=== PATIENT | female | born 1940 | race Caucasian/White ===

== ENCOUNTER → 2019-01-25 08:49 | Outpatient (CLI) | payer MEDICARE, OTHER, SELFPAY ==
[2019-01-25 12:35] LABS: BUN 10 mg/dL (7-18); Creatinine, Serum 0.76 mg/dL (0.55-1.02); Glucose 153 mg/dL (74-106)
[2019-01-25 12:36] LABS: Anion Gap 11 (5-15); BUN/Creat Ratio 13.2 RATIO (10-20); Calcium,Total 8.8 mg/dL (8.5-10.1); Chloride 100 mmol/L (98-107); EST Glomerular Filtration Rate 78 mL/min (>60); Est Glom Filt Rate - Afr Amer 95 mL/min (>60); Potassium 3.7 mmol/L (3.5-5.1); Sodium Level 138 mmol/L (136-145)
[2019-01-25 12:40] LABS: Vitamin D,25 Hydroxy 20.9 ng/mL (29.95-100.01)
== END ==
PROVIDERS: Visit Provider Family Medicine
DX: R73.01 Impaired fasting glucose (principal); M79.10 Myalgia, unspecified site
CPT/HCPCS: 36415; 80048; 82306

== ENCOUNTER 2019-07-19 14:24 | Observation (INO) | payer MEDICARE, OTHER, SELFPAY ==
[2019-07-19] VITALS (9 sets, daily range): BP systolic 125–156; BP diastolic 67–85; PULSE 68–84; RESP 16–21; TEMP 35.5–36.6; O2SAT 94–100; BMI 23.8; BMI 23.0
--- NOTE | 2019-07-19 15:08 | EKG12_ITS ---
Test Reason : NEURO S/X Blood Pressure : / mmHG Vent. Rate : 072 BPM Atrial Rate : 072 BPM P-R Int : 180 ms QRS Dur : 068 ms QT Int : 386 ms P-R-T Axes : 058 002 071 degrees QTc Int : 422 ms Normal sinus rhythm Low voltage QRS Borderline ECG Confirmed by ROBERT KIRKLAND ([id number]), editorial clerk BARBARA FISCHER ([id number]) on 07/25/2019 9:39:22 AM Referred By: Leigh Bradshaw Confirmed By:ROBERT KIRKLAND
--- NOTE | 2019-07-19 15:08 | CT_ITS ---
STUDY: CT BRAIN WITHOUT CONTRAST REASON FOR EXAM: Female, 79 years old. Transient aphasia RADIATION DOSAGE (If Supplied By Facility): CTDIvol = ( 44.99 ) mGy, DLP = ( 745.49 ) mGycm TECHNIQUE: Transaxial CT imaging of the brain was performed without administration of intravenous contrast material. Individualized dose optimization techniques were used for this CT. COMPARISON: 01/15/2017 FINDINGS: Normal soft tissue structures. Normal calvarium. Normal size ventricles and extra-axial spaces for the patient's age. Normal white matter tracts of the cerebral hemispheres. Normal basal ganglia and thalami. Normal brainstem. Normal cerebellum. There is no intracranial hemorrhage. There are no findings of an acute ischemic infarction. Normal visualized paranasal sinuses. CT/Brain/Head without Contrast IMPRESSION: Normal unenhanced CT scan of the brain. Electronically Signed: Pete Ernandez MD at 16:00 EDT Tel , Service support ,
--- NOTE | 2019-07-19 15:22 | ED.DCSUM_ITS ---
History of Present Illness Chief Complaint: Neuro S/Sx Narrative: Patient presenting for evaluation secondary to neurologic symptoms. Patient states that 2 weeks ago she was mixing up some cookies and she noted that she developed some right arm numbness. She reports that it was the entirety of her hand up to the level of her elbow. She reports that this lasted about 20 minutes and then spontaneously resolved. Patient states that yesterday she started to notice that she was developing somewhat of a mild headache. She reports that it is a generalized aching type sensation that was not specifically relieved by taking Aleve or aspirin. Patient states that today she developed the similar right arm numbness, but also was having some speech difficulty while she was on the phone with her niece. She reports that she was having some word salad type issues. Patient is never had any prior similar episodes. She denies any history of hypertension hyperlipidemia diabetes or smoking. Review of systems otherwise negative. Past Medical History - Allergies and Home Meds Allergies/Adverse Reactions: Allergies venom-wasp Allergy (Verified 07/19/19 14:28) Anaphylaxis Primary Care Physician: Ghanshyam Marte [Primary Care Provider] - Past Medical History: - - Overactive bladder Surgical History: hysterectomy, - - broken right leg x2, metal marker in right breast Smoking Status: Never smoker - Family History Maternal Family History: Reports: - - cancer Paternal Family History: Reports: Diabetes Review of Systems All systems negative except as indicated Neurological: Reports: Numbness, - - Word finding difficulty STROKE Vital Signs/Narrative: Vital Signs Temp Pulse Resp BP Pulse Ox 07/19/19 14:25 96.5 F L 82 16 135/79 H 98 Inital Vital Signs reviewed: Yes General: Well nourished, Well developed Head: Normocephalic, Atraumatic Eyes: Perrl, EOMI ENT: Moist mucous membranes, No rhinorrhea Neck: Supple, Nontender Cardiovascular: Regular rate, Regular rhythm, No murmurs Respiratory: No distress, CTA bilaterally, Chest nontender Abdomen: Soft, Nontender, Nondistended, Normal bowel sounds Back: Nontender, Normal Inspection Extremities: Nontender, No edema Skin: Normal color, No rash Neurological: Alert, Oriented x3, Cranial nerves II-XII grossly intact, Normal Strength, Normal Sensation, - - NIH stroke scale is 0 Psychological: Normal affect Diagnostic/Tx/Re-eval - EKG Initial EKG Interpretation: - - Sinus rhythm at [address] segments normal T waves normal NC and QTc intervals no evidence of acute ischemia or arrhythmia. - Medical Decision Making Patient presenting for evaluation secondary to neurologic symptoms. CT brain was found to be negative. Chest x-ray was negative. CBC chemistry and troponin were unremarkable. EKG was unremarkable. Patient is low risk from a medical disease standpoint, but is 79 years old and her symptoms seem to be crescendoing, as she had numbness and then this numbness progressed to a numbness and speech difficulty today. I do believe that she would benefit from admission for discovery of mitigation of her stroke risk factors. I will discuss this with hospitalist. ED Disposition - Plan for ED Patient: Disposition: Acute Care Hospital [facility] Diagnosis: TIA (transient ischemic attack), Right arm numbness, Difficulty with speech
[2019-07-19 15:32] LABS: Absolute Lymphocyte Count 1.92 X10^3/uL (0.83-4.51); Absolute Neutrophil Count 3.6 X10^3/uL (2.0-7.7); Basophil# 0.08 X10^3/uL; Basophil% 1.1 % (0-1); Eosinophil# 0.96 X10^3/uL; Eosinophils% 13.7 % (0-5); Hematocrit 42.1 % (37-47); Hemoglobin 13.6 g/dL (12.0-15.0); Lymphocyte # 1.92 X10^3/ul (4.0); Lymphocyte % 27.3 % (19-41); Mean Corp Hgb Conc 32.3 g/dL (32-36); Mean Corpuscular Hgb 29.9 pg (27.0-32.0); Mean Corpuscular Volume 92.5 fL (81-99); Monocyte# 0.51 X10^3/uL; Monocyte% 7.3 % (0-10); NRBC Flagged by Analyzer 0 % (0-5); Neutrophil # 3.55 X10^3/uL (2.7-7.7); Neutrophil % 50.5 % (47-70); Platelet Count 280 K/mm3 (150-450); RBC Distribution Width CV 13.9 % (11.6-14.6); RBC Distribution Width SD 47.2 fl (35.1-43.9); Red Blood Count 4.55 M/mm3 (4.2-5.4)
--- NOTE | 2019-07-19 15:33 | RAD_ITS ---
STUDY: X-RAY CHEST REASON FOR EXAM: Female, 79 years old. Cough TECHNIQUE: Single AP portable view of the chest. COMPARISON: 01/15/2017 FINDINGS: The lungs are clear and expanded. There is no demonstrated pleural abnormality. Normal size heart. Normal mediastinum and delfino. Normal visualized pulmonary arteries. Normal visualized aortic arch and descending thoracic aorta. Normal visualized thoracic spine. Normal visualized ribs, clavicles, and shoulders. There is no demonstrated abnormality of the visualized soft tissue structures of the upper abdomen. RAD/Chest 1 View IMPRESSION: Normal x-ray examination of the chest. Electronically Signed: Pete Ernandez MD at 16:01 EDT Tel , Service support ,
[2019-07-19 15:49] LABS: Anion Gap 3 (5-15); BUN 13 mg/dL (7-18); BUN/Creat Ratio 16.5 RATIO (10-20); Calcium,Total 8.7 mg/dL (8.5-10.1); Chloride 107 mmol/L (98-107); Creatinine, Serum 0.79 mg/dL (0.55-1.02); EST Glomerular Filtration Rate 75 mL/min (>60); Est Glom Filt Rate - Afr Amer 90 mL/min (>60); Estimated Creatinine Clearance 33.86 ml/min; Glucose 92 mg/dL (74-106); Potassium 3.9 mmol/L (3.5-5.1); Sodium Level 141 mmol/L (136-145)
--- NOTE | 2019-07-19 15:52 | NURSING ---
PT, PTT TUBE TOO SHORT, NEEDS REDRAW
--- NOTE | 2019-07-19 16:27 | NURSING ---
PCU OBS TIA ASHELFAH
[2019-07-19 16:35] LABS: Partial Thromboplast Time 27.5 Seconds (24.1-36.2); Prothrombin Time (Protime)PT. 12.5 SECONDS (11.7-14.9)
--- NOTE | 2019-07-19 16:49 | PCM.HP.STD ---
Problem List (1) TIA (transient ischemic attack) Status: Acute (2) Right arm numbness Status: Acute (3) Difficulty with speech Status: Acute History of Present Illness Date of Admission: 07/19/19 Chief Complaint: Headache, right arm numbness. The patient is a 79 year old F with no significant past medical history presented to the emergency room because of symptoms of headache, incoherent speech and right arm numbness. Her illness started around 2 weeks ago when she was preparing a cake at home and started having numbness on the right hand extending up to the right elbow and that lasted for about 45 minutes and resolve spontaneously. During those 2 weeks, she has been having intermittent headache, on the top of her head, dull aching, not radiating and without aggravating or relieving factors. This morning, she had another episode of numbness and tingling on the right hand and right arm and according to her , she had difficulty with her speech in terms of incoherent words. The mentioned that she has been fluent in her speech but her words does not make sense. She denied facial numbness or tingling. She denied blurred vision. She denied focal arm or leg weakness. In the emergency department, her vital signs were stable. Upon arrival to ER, her NIH stroke scale was 0. Her routine blood work was unremarkable. EKG revealed normal sinus rhythm without evidence of acute ischemic changes or cardiac arrhythmias. Troponin was negative. CT scan brain showed no acute findings. Chest x-ray showed no acute findings as well. She is being admitted for TIA for evaluation. Past Medical History Allergies venom-wasp Allergy (Verified 07/19/19 14:28) Anaphylaxis Home Medications: Ambulatory Orders Medication Instructions Recorded Tolterodine Tartrate [Detrol LA] 4 mg PO DAILY 01/15/17 Naproxen Sodium [Aleve] 440 mg PO DAILY PRN PRN 07/19/19 Surgical History: hysterectomy, - - broken right leg x2. Psychiatric History: No pertinent psych hx [employer] DES[employer]ER History: No pertinent W[employer] DES[employer]ER history Lives: Spouse/ Significant Other Smoking Status: Never smoker Alcohol: None Drugs: None - *Family History Maternal History Items: - - cancer Paternal History Items: Diabetes Review of Systems Constitutional: Denies: Anorexia, Chills, Fever, Weakness Eyes: Denies: Blurred vision, Double vision, Drainage, Redness HEENT: Denies: Difficulty Hearing, Ear Pain, Eye Pain, Nasal Congestion, Sore Throat Cardiovascular: Denies: Chest Pain, Chest Pressure, Chest Tightness, Heaviness, Light Headedness, Palpitations, Syncope Respiratory: Denies: Cough, Hemoptysis, Pleuritic Pain, Shortness of Breath, Sputum production, Wheezing Gastrointestinal: Denies: Abdominal Pain, Constipation, Diarrhea, Nausea, Vomiting Genitourinary: Denies: Dysuria, Frequency, Hematuria Musculoskeletal: Denies: Arm Pain, Back Pain, Foot Pain Skin: Denies: Dryness, Rash Neurological: Reports: Change in Speech, Headaches, Numbness, Tingling. Denies: Balance problems, Blurred vision, Double vision, Focal weakness Psychiatric: Denies: Anxiety, Depression Endocrine: Denies: Change in Body Habitus, Polydipsia, Polyuria VTE Information - Inpt Only VTE Present on Admission: No VTE Mechan Device Prophylaxis: None VTE Pharm Prophylaxis ordered?: Yes Patient Problems: Active and Suspected Problems TIA (transient ischemic attack) (Acute) Right arm numbness (Acute) Difficulty with speech (Acute) - Physical Exam General: Alert, Oriented x3, Cooperative, No apparent distress HEENT: Atraumatic, PERRLA, EOMI, Normocephalic Oral: Moist Mucosa, No Gingival or Mucosal Lesions/ Ulcerations Neck: Supple, No JVD, Negative Carotid Bruits, Trachea Midline, Thyroid Normal Size and Texture Lungs: Clear to auscultation, Normal air movement, No rhonchi, No wheeze, No rales Cardiovascular: Regular rate, Regular Rhythm, Normal S1, Normal S2, PMI Normal Abdomen: Bowel Sounds Present, Soft, Non Tender, Non-Distended, No Hepato-splenomegaly Extremities: No clubbing, No cyanosis, No edema Skin: No rashes, No breakdown Lymphatic: No Cervical, Supraclavicular, or Inguinal Adenopathy Neurological: Cranial nerves II-XII grossly intact, Motor Exam 5/5 strength throughout Psych/Mental Status: Normal Affect, Appropriate, Alert and oriented to time, place, person, mood and affect Vital Signs Temp Pulse Resp BP Pulse Ox 96 F L 68 21 H 151/81 H 97 07/19/19 16:34 07/19/19 16:34 07/19/19 16:34 07/19/19 16:34 07/19/19 16:08 Oxygen Delivery Method Room Air Weight: 125 lb 14.143 oz Body Mass Index (BMI) 23.8 Finger Stick Blood Glucose 92 Laboratory Tests Past 24 Hrs 07/19/19 07/19/19 07/19/19 15:20 15:20 15:20 WBC 7.0 RBC 4.55 Hgb 13.6 Hct 42.1 MCV 92.5 MCH 29.9 MCHC 32.3 RDW Std Deviation 47.2 H RDW Coeff of [place] 13.9 Plt Count 280 MPV 9.0 Immature Gran % (Auto) 0.100 Neut % (Auto) 50.5 Lymph % (Auto) 27.3 [place] % (Auto) 7.3 Eos % (Auto) 13.7 H Baso % (Auto) 1.1 H Absolute Neuts (auto) 3.6 Absolute Lymphs (auto) 1.92 Nucleated RBC % 0 PT Cancelled INR Cancelled APTT Cancelled Sodium 141 Potassium 3.9 Chloride 107 Carbon Dioxide 31.0 Anion Gap 3 L BUN 13 Creatinine 0.79 Estim Creat Clear Calc 33.86 Est GFR (MDRD) Af Amer 90 Est GFR (MDRD) Non-Af 75 BUN/Creatinine Ratio 16.5 Glucose 92 Calcium 8.7 Troponin I < 0.015 07/19/19 16:10 WBC RBC Hgb Hct MCV MCH MCHC RDW Std Deviation RDW Coeff of [place] Plt Count MPV Immature Gran % (Auto) Neut % (Auto) Lymph % (Auto) [place] % (Auto) Eos % (Auto) Baso % (Auto) Absolute Neuts (auto) Absolute Lymphs (auto) Nucleated RBC % PT Pending INR Pending APTT Pending Sodium Potassium Chloride Carbon Dioxide Anion Gap BUN Creatinine Estim Creat Clear Calc Est GFR (MDRD) Af Amer Est GFR (MDRD) Non-Af BUN/Creatinine Ratio Glucose Calcium Troponin I Clinical Impression(s) from Imaging Studies Brain CT 07/19/19 15:08 IMPRESSION: Normal unenhanced CT scan of the brain. Electronically Signed: Pete Ernandez MD at 16:00 EDT Tel , Service support , Chest X-Ray 07/19/19 15:33 IMPRESSION: Normal x-ray examination of the chest. Electronically Signed: Pete Ernandez MD at 16:01 EDT Tel , Service support , Assessment/Plan All Active Problems TIA (transient ischemic attack) (Acute) Right arm numbness (Acute) Difficulty with speech (Acute) This is an 79 years old female patient presented to the emergency room because of right hand and right arm numbness, headache and incoherent speech and she is being admitted for TIA for evaluation. #1 headache/right arm and right hand paresthesia/incoherent speech: Concern for TIA. CT scan brain showed no acute findings. In the ED, her NIH stroke scale was 0. No focal deficit on physical exam. Chest x-ray and EKG reviewed as above. Her vital signs are stable. Plan: Admit to PCU for observation, cardiac monitoring, NIH stroke scale every 4 hours, MRI brain, CTA of the head and neck, 2D echocardiogram, start baby aspirin, Lipitor, fasting lipid profile, neurology consult, PT OT evaluation and treatment. #2 DVT prophylaxis: Subcu Lovenox. This note was generated with [employer] dictation software. It may contain incorrect words, spelling, and punctuation that were not noted in checking the note before signing. Code Visit OBSV E&M: 38769 Initial observation care L3
--- NOTE | 2019-07-19 17:33 | MRI_ITS ---
HISTORY: Numbness/TinglingR HAND ONE EPISODE TODAY AND ONCE 13 DAYS AGO, WORD CONFUSION TECHNIQUE: Routine brain MR protocol was performed without gadolinium. 10 series. 283 images. COMPARISON: CT angiogram of the neck and brain from an hour and a half earlier FINDINGS: # of images incl. paperwork: 283 Brain volume is atrophic. Physiologic calcifications are present within the medial aspect of bilateral lentiform nuclei Periventricular deep and subcortical white matter disease is mild No acute stroke is present. Paranasal sinuses are clear. There are no masses, herniations, nor deviations. Orbits and globes are normal. The pituitary and sella turcica are not enlarged. The intracranial portion of the right vertebral artery is not identified. MRI/Brain without Contrast IMPRESSION: No acute ischemia. Mild sequelae of chronic microvascular ischemia. The intracranial right vertebral artery is not identified. 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
--- NOTE | 2019-07-19 17:33 | ECHOD_ITS ---
Reason For Study: TIA/CVA Procedure This was a 2D Doppler, Color Flow transthoracic echocardiogram. Exam performed portable in patient room. Left Ventricle Normal size and thickness. The estimated ejection fraction is 60 %. No evidence for diastolic dysfunction. No regional wall motion abnormalities noted. Right Ventricle Normal RV size. Normal systolic function. Atria Normal left atrium. Normal right atrium. No doppler evidence for ASD. Mitral Valve There is no mitral valve stenosis. No mitral valve insufficiency. Tricuspid Valve There is no tricuspid stenosis. Trivial tricuspid valve insufficiency. Normal pulmonary artery pressure. Aortic Valve Trisinus/trileaflet aortic valve. There is no aortic stenosis. No aortic valve insufficiency. Pulmonic Valve There is no pulmonic valvular stenosis. No pulmonic valve insufficiency. Great Vessels Normal aortic root. Pericardium/Pleural No pericardial effusion. MMode/2D Measurements & Calculations LVIDd: 3.8 cm IVSd: 0.83 cm Ao root diam: 2.8 cm LVIDs: 2.6 cm LVPWd: 0.87 cm RVDd: 2.7 cm FS: 30.3 % LAV(MOD-bp): 25.5 ml LA A4 area: 9.8 cm2 LA dimension(2D): 3.0 cm LAV(MOD-bp) Indexed: 16.5 ml/m2 LAV(MOD-sp2): 27.1 ml LAV(MOD-sp4): 19.9 ml RA A4 area: 10.1 cm2 Time Measurements MV dec time: 0.19 sec Doppler Measurements & Calculations MV E max carrington: 82.1 cm/sec Lat Peak E' [place]: 6.8 cm/sec Med Peak E' [place]: 6.6 cm/sec MV A max [place]: 92.3 cm/sec E/E' lat: 12.1 E/E' med: 12.3 MV E/A: 0.89 Ao V2 max: 107.9 cm/sec LV V1 max: 68.8 cm/sec PA V2 max: 72.2 cm/sec Ao max P.7 mmHg LV V1 max P.9 mmHg TR max carrington: 222.0 cm/sec TR max P.8 mmHg Interpretation Summary The estimated ejection fraction is 60 %. No evidence for diastolic dysfunction. Trivial tricuspid valve insufficiency. Ordering Physician: Leigh Bradshaw Referring Physician: Ghanshyam Marte Performed By: Kami De La Garza RDCS, RVT
--- NOTE | 2019-07-19 17:33 | CT_ITS ---
STUDY: CTA HEAD AND NECK WITH CONTRAST REASON FOR EXAM: Female, 79 years old. Right-sided numbness RADIATION DOSAGE (If Supplied By Facility): CTDIvol = ( 15.83 ) mGy, DLP = ( 549.93 ) mGycm TECHNIQUE: CT angiography was performed with a multi-detector CT scanner. Data acquisition was obtained from the skull base through the vertex following intravenous administration of 100 IV Isovue 370. MIP images were reconstructed from the axial data set. Post-processing of the angiographic images was performed, with multiplanar reformation and 3D reconstruction. Individualized dose optimization techniques were used for this CT. COMPARISON: No relevant priors. FINDINGS: Normal bilateral petrous carotid arteries. Normal right cavernous carotid artery with a normal supraclinoid bifurcation. Normal left cavernous carotid artery with a normal supraclinoid bifurcation. Normal right A1 segments of the anterior cerebral artery. Normal left A1 segments of the anterior cerebral artery. Normal intact anterior communicating artery (ACOM). Normal bilateral A2 segments of the anterior cerebral arteries. Normal right M1 and M2 segments of the middle cerebral arteries, with a normal M1 bifurcation. Normal left M1 and M2 segments of the middle cerebral arteries, with a normal M1 bifurcation. Mild hypoplasia of the right posterior communicating artery (PCOM). Normal left posterior communicating artery (PCOM). Normal left vertebral artery which is the dominant supply to the posterior fossa. Nonvisualization of the intracranial segment of the right vertebral artery, likely a normal variant. Normal basilar artery with a normal basilar bifurcation. Normal right superior cerebellar (SCA) artery. Questionable 1.5 mm aneurysm at the origin of the left superior cerebellar artery. Normal right posterior cerebral artery. Nonvisualization of the proximal segment of the left posterior cerebral artery. There is no demonstrated aneurysm of the [place]. There is no demonstrated abnormality of the visualized brain. AORTIC ARCH: Mildly calcified aortic arch. Normal origins of the brachiocephalic, left common carotid, and left subclavian arteries. RIGHT CAROTID ARTERIES: Normal right common carotid artery (CCA). Normal right common carotid bulb. Normal origin of the right internal carotid (ICA) artery without a hemodynamically significant stenosis. Normal visualized cervical portion of the right internal carotid artery. Normal origin of the right external carotid artery (ECA). LEFT CAROTID ARTERIES: Normal left common carotid artery (CCA). Normal left common carotid bulb. Normal origin of the left internal carotid (ICA) artery without a hemodynamically significant stenosis. Normal visualized cervical portion of the left internal carotid artery. Normal origin of the left external carotid artery (ECA). VERTEBRAL ARTERIES: Normal left vertebral artery. Mild diffuse hypoplasia of the right vertebral artery. 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 Nonvisualization of the proximal segment of the left posterior cerebral artery. Questionable small aneurysm at the origin of the left superior cerebellar artery. Electronically Signed: Charlie Valdez DO at 18:42 EDT Tel [phone], Service support ,
[2019-07-19] MEDS: 0.9% Normal Saline 1,000 ML 100 ML IV (18:16)
[2019-07-19] MEDS: 0.9% NaCl Peripheral Flush Adult/Peds IV (20:25)
[2019-07-19] MEDS: Atorvastatin Calcium 80 MG Tablet PO (21:13)
[2019-07-20] VITALS (7 sets, daily range): BP systolic 120–138; BP diastolic 58–70; PULSE 67–86; RESP 16–18; TEMP 36.5–36.8; O2SAT 97–98; BMI 23.0
--- NOTE | 2019-07-20 00:14 | NURSING ---
Handoff report given to Calvin Mcintosh
[2019-07-20] MEDS: Acetaminophen 325 MG Tablet 650 MG PO ×2 (05:20→13:14)
[2019-07-20 06:34] LABS: Cholesterol 230 mg/dL (200); High Density Lipoprotein 52 mg/dL; Triglycerides 114 mg/dL; Very Low Density Lipoprotein 23 mg/dL (5-40)
[2019-07-20] MEDS: Aspirin 81 MG TAB.CHEW PO (09:01)
[2019-07-20] MEDS: Enoxaparin 40 MG/0.4 ML Syringe SC (09:01)
[2019-07-20] MEDS: Tolterodine Tartrate 4 MG CAP.SA PO (09:01)
[2019-07-20 10:27] LABS: Erythrocyte Sedimentation Rate 5 mm/hr (0-30)
--- NOTE | 2019-07-20 11:14 | DCINST_ITS ---
- Discharge Diagnoses Current Active Problems: Current Active and Chronic Problems TIA (transient ischemic attack) (Acute) Right arm numbness (Acute) Difficulty with speech (Acute) You will use the following diet at home:: No restrictions Discharge Activity: Return to Normal Activity Call your doctor if you observe: Numbness or Tingling, Shortness of breath, Dizziness, Fainting spells, Chest pain Allergies/Adverse Reactions: Allergies venom-wasp Allergy (Verified 07/19/19 14:28) Anaphylaxis Medications to take at Discharge Tolterodine Tartrate [Detrol LA] 4 mg PO DAILY 01/15/17 Naproxen Sodium [Aleve] 440 mg PO DAILY PRN PRN 07/19/19 Aspirin [Aspirin, Baby] 81 mg PO DAILY@0800 #30 tab.chew 07/20/19 Atorvastatin Calcium 40 mg PO QHS #30 tab 07/20/19 Clopidogrel Bisulfate [Plavix] 75 mg PO DAILY #30 tab 07/20/19 The following prescriptions were given: Aspirin [Aspirin, Baby] 81 mg PO DAILY@0800 #30 tab.chew Transmission Status: Received by [facility] Atorvastatin Calcium 40 mg PO QHS #30 tab Transmission Status: Received by [facility] Clopidogrel Bisulfate [Plavix] 75 mg PO DAILY #30 tab Transmission Status: Pending to [facility] Orders to be completed after discharge: 30-Day Event Recorder [[facility]] Location: None Selected Primary Care Physician: Ghanshyam Marte [Primary Care Provider] - Please follow up with your Primary Care Physician in: 1 Week Test Results: Test results from this visit will be discussed in further detail at your follow- up appointment, if applicable. Please Follow Up With: Myriam Thurston MD When: 3-4 Weeks Please Follow Up With: Neurosurgery When: Referral by neurology at follow-up. Proposed Discharge Date: 07/20/19
--- NOTE | 2019-07-20 12:55 | CON.PCM_ITS ---
Problem List (1) TIA (transient ischemic attack) Status: Acute Reason for Consult Date of Consultation: 07/20/19 Reason for Consultation: TIA History of Present Illness: The patient is a 79 year old F with no significant past medical history was admitted with strokelike symptoms. Per patient about 2 weeks ago she had an acute onset episode of right arm numbness while making cookies, the episode lasted for about 2 hours but the patient did not seek any medical advice. Then yesterday 2018 when she was talking with her in the morning she had an acute episode of word finding difficulties, where she could not get the words out and was not making sense what ever she was speaking patient this episode lasted for about 10 minutes before resolving. Per patient she has been having mild headache for over 2 weeks, frontal, without any photophobia phonophobia, denies any vision loss, jaw claudication or temporal tenderness. Per patient she lives with her , does not drive, denies any frequent falls, does not use any cane or walker to ambulate, and does not need any assistance for ADLs. Per patient she does not take aspirin at baseline. But she was taking it on and off for the past 2 weeks since the episode of right arm numbness. At present she denies any dizziness, focal motor weakness, sensory loss, speech disturbances, visual disturbances or facial weakness. She denies any neck pain, radicular symptoms. 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 Lives: Spouse/ Significant Other Smoking Status: Never smoker Alcohol: None Drugs: None - *Family History Maternal History Items: - - cancer Paternal History Items: Diabetes Review of Systems Constitutional: Reports: - - Complete ROS negative except as documented in HPI Patient Problems: Active and Suspected Problems TIA (transient ischemic attack) (Acute) Right arm numbness (Acute) Difficulty with speech (Acute) - Physical Exam General: Alert HEENT: Normocephalic Neck: Supple Lungs: Normal air movement Cardiovascular: Normal S1, Normal S2 Abdomen: Bowel Sounds Present Extremities: No cyanosis Neurological: - - Conscious, alert, AOA x3, CN II through XII grossly intact, power 5 x 5 both upper and lower extremities, no sensory loss, no cerebellar signs, gait deferred, reflexes + B/L B/S/T/K/A, NIHSS 0 at present, mRS 0 at baseline Psych/Mental Status: Normal Affect Vital Signs Temp Pulse Resp BP Pulse Ox 98.0 F 77 16 138/70 H 97 07/20/19 09:00 07/20/19 09:00 07/20/19 09:00 07/20/19 09:00 07/20/19 09:00 Oxygen Delivery Method Room Air Weight: 56.2 kg Body Mass Index (BMI) 23.0 Finger Stick Blood Glucose 92 Intake and Output for Last 24 Hours 07/18/19 07/19/19 07/20/19 23:59 23:59 23:59 Intake Total 900.00 / 900.00 1060 / 1060 Balance 900.00 / 900.00 1060 / 1060 Laboratory Tests Past 24 Hrs 07/19/19 07/19/19 07/19/19 15:20 15:20 15:20 WBC 7.0 RBC 4.55 Hgb 13.6 Hct 42.1 MCV 92.5 MCH 29.9 MCHC 32.3 RDW Std Deviation 47.2 H RDW Coeff of [place] 13.9 Plt Count 280 MPV 9.0 Immature Gran % (Auto) 0.100 Neut % (Auto) 50.5 Lymph % (Auto) 27.3 [place] % (Auto) 7.3 Eos % (Auto) 13.7 H Baso % (Auto) 1.1 H Absolute Neuts (auto) 3.6 Absolute Lymphs (auto) 1.92 Nucleated RBC % 0 ESR PT Cancelled INR Cancelled APTT Cancelled Sodium 141 Potassium 3.9 Chloride 107 Carbon Dioxide 31.0 Anion Gap 3 L BUN 13 Creatinine 0.79 Estim Creat Clear Calc 33.86 Est GFR (MDRD) Af Amer 90 Est GFR (MDRD) Non-Af 75 BUN/Creatinine Ratio 16.5 Glucose 92 Calcium 8.7 Troponin I < 0.015 Triglycerides Cholesterol LDL Cholesterol VLDL Cholesterol HDL Cholesterol 07/19/19 07/20/19 07/20/19 16:10 05:48 10:10 WBC RBC Hgb Hct MCV MCH MCHC RDW Std Deviation RDW Coeff of [place] Plt Count MPV Immature Gran % (Auto) Neut % (Auto) Lymph % (Auto) [place] % (Auto) Eos % (Auto) Baso % (Auto) Absolute Neuts (auto) Absolute Lymphs (auto) Nucleated RBC % ESR 5 PT 12.5 INR 1.0 APTT 27.5 Sodium Potassium Chloride Carbon Dioxide Anion Gap BUN Creatinine Estim Creat Clear Calc Est GFR (MDRD) Af Amer Est GFR (MDRD) Non-Af BUN/Creatinine Ratio Glucose Calcium Troponin I Triglycerides 114 Cholesterol 230 H LDL Cholesterol 155 H VLDL Cholesterol 23 HDL Cholesterol 52 Assessment/Plan All Active Problems TIA (transient ischemic attack) (Acute) Right arm numbness (Acute) Difficulty with speech (Acute) The patient is a 79 year old F with no significant past medical history was admitted with strokelike symptoms. Per patient about 2 weeks ago she had an acute onset episode of right arm numbness while making cookies, the episode lasted for about 2 hours but the patient did not seek any medical advice. Then yesterday 2018 when she was talking with her in the morning she had a n acute episode of word finding difficulties, where she could not get the words out and was not making sense what ever she was speaking patient this episode lasted for about 10 minutes before resolving. Per patient she has been having mild headache for over 2 weeks, frontal, without any photophobia phonophobia, denies any vision loss, jaw claudication or temporal tenderness. Per patient she lives with her , does not drive, denies any frequent falls, does not use any cane or walker to ambulate, and does not need any assistance for ADLs. Per patient she does not take aspirin at baseline. But she was taking it on and off for the past 2 weeks since the episode of right arm numbness. At present she denies any dizziness, focal motor weakness, sensory loss, speech disturbances, visual disturbances or facial weakness. She denies any neck pain, radicular symptoms. 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 once daily. Start Plavix 75 mg p.o. once daily. Dual antiplatelet for 3 weeks then switch to aspirin. Bleeding risk discussed in detail. ABCD 2 score 4 ?Lipitor 40 mg p.o. 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 ?Neurosurgery consultation as outpatient for aneurysm ?TTE pending, LDL?155, HbA1c pending ?30-day heart monitor on discharge ?Stroke risk factors discussed and stroke education provided ?Long-term goal blood pressure less than 130/80 mmHg and goal HbA1c less than 7% ?PT/OT/ST ?Fall precautions ?GI/DVT prophylaxis ?Further medical management per hospitalist team ?Follow-up with neurology as outpatient in 3 to 4 weeks ?Please call with questions if any ?Thank you for allowing us to participate in patient's care and management This note is still been generated using [employer] dictation software. It may contain incorrect words, spellings and punctuation's that were not noted in the review of the note prior to signing Code Visit Inpatient E&M: 55627 Init Hosp L3
--- NOTE | 2019-07-20 13:01 | CASEMGMT ---
Pt stating she does have a living will and HCPOA. SW informed pt that there is not a copy on medical record and requested it be brought to hospital. Pt agreeable. RANDALL Baker
[2019-07-20] MEDS: Clopidogrel Bisulfate 75 MG Tablet PO (13:14)
[2019-07-20 13:30] LABS: Hemoglobin A1c 5.8 % (4.2-6.3)
--- NOTE | 2019-07-20 14:03 | CASEMGMT ---
SW completed a PHQ-9 as patient may have had a TIA per Neurologist note. She scored a 1 which indicates minimal depression. Lila GARCIA MSW
--- NOTE | 2019-07-20 14:14 | DS.PCM_ITS ---
<Mariely Hoover - Last Filed: 07/20/19 14:27> Discharge Date and Diagnosis Date of Admission: 07/19/19 Date of Discharge: 07/20/19 - Primary Discharge Diagnosis Active and Suspected Problems 1. Probable TIA, acute stroke ruled out 2. 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 Hyperlipidemia 4. Overactive bladder Hospital Course and Treatment Imaging Results: Diagnostic Data Brain CT 07/19/19 15:08 IMPRESSION: Normal unenhanced CT scan of the brain. Electronically Signed: Pete Ernandez MD at 16:00 EDT Tel , Service support , Chest X-Ray 07/19/19 15:33 IMPRESSION: Normal x-ray examination of the chest. Electronically Signed: Pete Ernandez MD at 16:01 EDT Tel , Service support , Brain MRI 07/19/19 17:33 IMPRESSION: No acute ischemia. Mild sequelae of chronic microvascular ischemia. The intracranial right vertebral artery is not identified. 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 Nonvisualization of the proximal segment of the left posterior cerebral artery. Questionable small aneurysm at the origin of the left superior cerebellar artery. Electronically Signed: Charlie Valdez DO at 18:42 EDT Tel [phone], Service support , Dr. Thurston- neurology Operations: None Procedures: 2-D Echocardiogram Summary of Care Provided: The patient is a 79 year old F admitted 07/19/2019 due to headache and right arm numbness. 1. Probable TIA, acute stroke ruled out-neurology consulted. Brain CT normal. MRI of brain without acute stroke. CTA of head and neck did not show any hemodynamically significant stenosis however reported questionable small left superior cerebral artery aneurysm. Recommend neurosurgery follow-up as outpatient. Neurology suspects probable TIA. Discharge on aspirin, Plavix and statin. Continue dual antiplatelet therapy for 3 weeks and then switch to aspirin only. 30-day event recorder at discharge. Follow-up with neurology in 3 to 4 weeks. Follow-up with primary care provider in 1 week. Echocardiogram pending and will be reviewed prior to discharge. 2. 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 3. Hyperlipidemia-initiated on atorvastatin 40 mg p.o. nightly. 4. Overactive bladder-continue home Detrol LA regimen. Patient seen and examined prior to discharge. Physical assessment as noted below. Patient is stable for discharge with follow up recommendations as noted above. - Physical Exam General: Alert, Oriented x3, Cooperative HEENT: Atraumatic, PERRLA, EOMI, Normocephalic Neck: Supple, No JVD, Negative Carotid Bruits Lungs: Clear to auscultation, Normal air movement Cardiovascular: Regular rate, Regular Rhythm, Normal S1, Normal S2, No murmurs Abdomen: Bowel Sounds Present, Soft, Non Tender, Non-Distended Extremities: No clubbing, No cyanosis, No edema, Capillary Refill Less than 3 Seconds Skin: No rashes, No breakdown Musculoskeletal: No Tenderness to Palpation of Joints or Extremities Neurological: Cranial nerves II-XII grossly intact, Neuro grossly intact Psych/Mental Status: Normal Affect, Appropriate Vital Signs Temp Pulse Resp BP Pulse Ox 98.0 F 77 16 138/70 H 97 07/20/19 09:00 07/20/19 09:00 07/20/19 09:00 07/20/19 09:00 07/20/19 09:00 Oxygen Delivery Method Room Air Weight: 123 lb 14.397 oz Body Mass Index (BMI) 23.0 Finger Stick Blood Glucose 92 Intake and Output for Last 24 Hours 07/18/19 07/19/19 07/20/19 23:59 23:59 23:59 Intake Total 900.00 / 900.00 1060 / 1060 Balance 900.00 / 900.00 1060 / 1060 Laboratory Tests Past 24 Hrs 07/19/19 07/19/19 07/19/19 15:20 15:20 15:20 WBC 7.0 RBC 4.55 Hgb 13.6 Hct 42.1 MCV 92.5 MCH 29.9 MCHC 32.3 RDW Std Deviation 47.2 H RDW Coeff of [place] 13.9 Plt Count 280 MPV 9.0 Immature Gran % (Auto) 0.100 Neut % (Auto) 50.5 Lymph % (Auto) 27.3 [place] % (Auto) 7.3 Eos % (Auto) 13.7 H Baso % (Auto) 1.1 H Absolute Neuts (auto) 3.6 Absolute Lymphs (auto) 1.92 Nucleated RBC % 0 ESR PT Cancelled INR Cancelled APTT Cancelled Sodium 141 Potassium 3.9 Chloride 107 Carbon Dioxide 31.0 Anion Gap 3 L BUN 13 Creatinine 0.79 Estim Creat Clear Calc 33.86 Est GFR (MDRD) Af Amer 90 Est GFR (MDRD) Non-Af 75 BUN/Creatinine Ratio 16.5 Glucose 92 Hemoglobin A1c Calcium 8.7 Troponin I < 0.015 Triglycerides Cholesterol LDL Cholesterol VLDL Cholesterol HDL Cholesterol 07/19/19 07/20/19 07/20/19 16:10 05:48 10:10 WBC RBC Hgb Hct MCV MCH MCHC RDW Std Deviation RDW Coeff of [place] Plt Count MPV Immature Gran % (Auto) Neut % (Auto) Lymph % (Auto) [place] % (Auto) Eos % (Auto) Baso % (Auto) Absolute Neuts (auto) Absolute Lymphs (auto) Nucleated RBC % ESR 5 PT 12.5 INR 1.0 APTT 27.5 Sodium Potassium Chloride Carbon Dioxide Anion Gap BUN Creatinine Estim Creat Clear Calc Est GFR (MDRD) Af Amer Est GFR (MDRD) Non-Af BUN/Creatinine Ratio Glucose Hemoglobin A1c Calcium Troponin I Triglycerides 114 Cholesterol 230 H LDL Cholesterol 155 H VLDL Cholesterol 23 HDL Cholesterol 52 07/20/19 10:10 WBC RBC Hgb Hct MCV MCH MCHC RDW Std Deviation RDW Coeff of [place] Plt Count MPV Immature Gran % (Auto) Neut % (Auto) Lymph % (Auto) [place] % (Auto) Eos % (Auto) Baso % (Auto) Absolute Neuts (auto) Absolute Lymphs (auto) Nucleated RBC % ESR PT INR APTT Sodium Potassium Chloride Carbon Dioxide Anion Gap BUN Creatinine Estim Creat Clear Calc Est GFR (MDRD) Af Amer Est GFR (MDRD) Non-Af BUN/Creatinine Ratio Glucose Hemoglobin A1c 5.8 Calcium Troponin I Triglycerides Cholesterol LDL Cholesterol VLDL Cholesterol HDL Cholesterol Discharge Diet: Low fat/ Low Cholesterol Discharge Activity: Return to Normal Activity Call your doctor if you observe: Numbness or Tingling, Shortness of breath, Dizziness, Fainting spells, Chest pain Home Medications: Medications to take at Discharge Tolterodine Tartrate [Detrol LA] 4 mg PO DAILY 01/15/17 Aspirin [Aspirin, Baby] 81 mg PO DAILY@0800 #30 tab.chew 07/20/19 Atorvastatin Calcium 40 mg PO QHS #30 tab 07/20/19 Clopidogrel Bisulfate [Plavix] 75 mg PO DAILY #30 tab 07/20/19 Following Prescrptions Were Given to Patient: Aspirin [Aspirin, Baby] 81 mg PO DAILY@0800 #30 tab.chew Transmission Status: Received by [facility] Atorvastatin Calcium 40 mg PO QHS #30 tab Transmission Status: Received by [facility] Clopidogrel Bisulfate [Plavix] 75 mg PO DAILY #30 tab Transmission Status: Received by [facility] Other Amb Orders: 30-Day Event Recorder [[facility]] Location: None Selected Primary Care Physician: Ghanshyam Marte [Primary Care Provider] - Please follow up with your Primary Care Physician in: 1 Week Please Follow Up With: Myriam Thurston MD When: 3-4 Weeks Please Follow Up With: Neurosurgery When: Referral by neurology at follow-up. Disposition: Home Minutes spent on discharge:: 35 Patient Condition:: Stable Medical Necessity - Tobacco Use Smoking Status: Never smoker Meaningful Use Info Meaningful Use Diagnoses (Choose all that apply): None applicable <Domenic Flowers - Last Filed: 07/21/19 07:35> Hospital Course and Treatment Summary of Care Provided: This patient was seen in conjunction with PEPE Frederick . I have independently interviewed and examined the patient and reviewed pertinent historical, laboratory, and other data. Please refer to PEPE Frederick note for details of this patient's presentation, findings, and recommendations. I have reviewed Mariely Kiko, ONCOLOGY PHYSICIAN ASSISTANT-C note and concur with documented findings. In brief, patient is a relatively healthy 79-year-old lady who presented with headache and right arm numbness admitted to a monitored bed where she underwent subsequent evaluation MRI of the brain obtained was negative for acute CVA. 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00 1060 / 1060 Laboratory Tests Past 24 Hrs 07/20/19 07/20/19 10:10 10:10 ESR 5 Hemoglobin A1c 5.8 Code Visit OBSV E&M: 04268 Observation care discharge
== END 2019-07-20 11:14 | disposition home or self-care (01) ==
LOC: ED 16:18 → PCU 17:03
PROVIDERS: Psychiatry & Neurology Neurology; Admitting Provider Hospitalist; Emergency Provider Emergency Medicine; Family Provider Family Medicine; PCP Family Medicine; Referring Provider Hospitalist; Visit Provider Internal Medicine
DX: R20.0 Anesthesia of skin (principal); E78.5 Hyperlipidemia, unspecified; N32.81 Overactive bladder; Z79.899 Other long term (current) drug therapy; R47.89 Other speech disturbances; R51 Headache; R29.700 NIHSS score 0; I07.1 Rheumatic tricuspid insufficiency
CPT/HCPCS: 36415; 70450; 70496; 70498; 70551; 71045; 80048; 80061; 83036; 84484; 85025; 85610; 85652; 85730; 93005; 93306; 96360; 96361; 96372; 99218; 99285; J7030; Q9967; A4216; G0378

== ENCOUNTER → 2019-10-13 13:42 | Outpatient (CLI) | payer MEDICARE, OTHER, SELFPAY ==
[2019-07-20 15:42] VITALS: BMI 23.8
[2019-10-13 16:30] LABS: Vitamin D,25 Hydroxy 48.5 ng/mL (29.95-100.01)
[2019-10-13 16:39] LABS: T4 Free Direct 0.88 ng/dL (0.76-1.46); Thyroid Stim Hormone (TSH) 3.27 uIU/mL (0.358-3.74)
== END ==
PROVIDERS: Family Provider Family Medicine; PCP Family Medicine; Visit Provider Family Medicine
DX: E55.9 Vitamin D deficiency, unspecified (principal); E78.5 Hyperlipidemia, unspecified
CPT/HCPCS: 36415; 82306; 84439; 84443

== ENCOUNTER → 2020-04-11 08:58 | Outpatient (CLI) | payer MEDICARE, SELFPAY ==
[2019-07-20 15:42] VITALS: BMI 23.8
[2020-04-11 12:39] LABS: ALB/GLOB Ratio 1.1 RATIO (0.9-2.4); AST(SGOT) 44 U/L (15-37); Alanine Aminotransfer ALT/SGPT 41 U/L (13-56); Albumin, Serum 3.8 g/dL (3.2-5.0); Alkaline Phosphatase 84 U/L (45-117); Anion Gap 5 (5-15); BUN 12 mg/dL (7-18); BUN/Creat Ratio 17.4 RATIO (10-20); Calcium,Total 8.7 mg/dL (8.5-10.1); Chloride 104 mmol/L (98-107); Cholesterol 170 mg/dL (200); Creatinine, Serum 0.69 mg/dL (0.55-1.02); EST Glomerular Filtration Rate 87 mL/min (>60); Est Glom Filt Rate - Afr Amer 105 mL/min (>60); Globulin 3.5 g/dL (2.2-4.2); Glucose 97 mg/dL (74-106); High Density Lipoprotein 67 mg/dL; Potassium 4.1 mmol/L (3.5-5.1); Protein, Total 7.3 g/dL (6.4-8.2); Sodium Level 138 mmol/L (136-145); Triglycerides 81 mg/dL; Very Low Density Lipoprotein 16 mg/dL (5-40)
== END ==
PROVIDERS: PCP Family Medicine; Visit Provider Family Medicine
DX: E78.5 Hyperlipidemia, unspecified (principal)
CPT/HCPCS: 36415; 80053; 80061

== ENCOUNTER → 2020-10-14 09:39 | Outpatient (CLI) | payer MEDICARE, SELFPAY ==
[2019-07-20 15:42] VITALS: BMI 23.8
[2020-10-14 13:37] LABS: ALB/GLOB Ratio 1.1 RATIO (0.9-2.4); AST(SGOT) 43 U/L (15-37); Alanine Aminotransfer ALT/SGPT 36 U/L (13-56); Albumin, Serum 3.9 g/dL (3.2-5.0); Alkaline Phosphatase 70 U/L (45-117); Anion Gap 4 (5-15); BUN 11 mg/dL (7-18); BUN/Creat Ratio 15.1 RATIO (10-20); Calcium,Total 8.7 mg/dL (8.5-10.1); Chloride 105 mmol/L (98-107); Creatinine, Serum 0.73 mg/dL (0.55-1.02); EST Glomerular Filtration Rate 82 mL/min (>60); Est Glom Filt Rate - Afr Amer 99 mL/min (>60); Globulin 3.5 g/dL (2.2-4.2); Glucose 98 mg/dL (74-106); Potassium 3.9 mmol/L (3.5-5.1); Protein, Total 7.4 g/dL (6.4-8.2); Sodium Level 139 mmol/L (136-145); Thyroid Stim Hormone (TSH) 3.53 uIU/mL (0.358-3.74)
== END ==
PROVIDERS: PCP Family Medicine; Visit Provider Family Medicine
DX: E78.5 Hyperlipidemia, unspecified (principal)
CPT/HCPCS: 36415; 80053; 84443

== ENCOUNTER → 2020-11-28 07:57 | Outpatient (CLI) | payer MEDICARE, SELFPAY ==
[2019-07-20 15:42] VITALS: BMI 23.8
--- NOTE | 2020-11-28 | IMM_PTH ---
PATIENT: KANA PAREDES LOC: [facility] U#:[id number] AGE/SX: 85/F ROOM: RE11/28/[address]: Dr. Richelle Arnold MD : 1940 BED: DIS: SPEC #: [id number] RECD: 11/29/20 10:02 STATUS: SANJEEV REQ #: [id number] [place]: 11/28/20 00:[address]: Richelle Arnold DEPT: IMMUNOHISTOCHEMISTRY RECD BY: Beverly Ray ENTERED: 11/29/20 10:04 SP TYPE: IMMUNO OTHR DR: Ghanshyam Marte Tissues: Left breast, NOS Procedures: E-CAD (initial) CK8 (add) E-CAD (add) PHYSICIAN & INSTITUTION [place] [id number] SPECIMEN INFORMATION: Tissue Source: Left breast, 1 o'clock density, stereotactic core biopsy Clinical Info: Left breast, 1 o'clock density Specimen Number: [id number] #2 & 3 CPT code: 88622, 10373 x3 METHODOLOGY: Deparaffinized sections of prefer/formalin-fixed tissue or PAP/DQ stained slides are incubated with monoclonal/polyclonal antibodies/oligonucleotide probes. Localization is made via biotin free immunoperoxidase method. Appropriate controls are performed and reacted as expected. Results on target cell population are indicated in the following table: RESULTS: ANTIBODY / CLONE RESULT Block 2 E-Cad (ECH-6) negative CK8 ([id number]) positive Block 3 E-Cad (ECH-6) negative CK8 ([id number]) positive These tests were developed and their performance characteristics determined by [facility]. They may not have been cleared or approved by the U.[place]. Food and Drug Administration. The FDA has determined that such clearance or approval is not necessary. The above immunohistochemical/dualISH markers are ordered and reviewed by the Pathologist. INTERPRETATION: Left breast, 1 o'clock density, stereotactic core biopsy: Focal minimal atypical lobular hyperplasia. ILYA:salma 12/02/2020 Case has been reviewed in consultation with Dr. Vanegas who concurs with the above diagnosis. IDC:AM
--- NOTE | 2020-11-28 | BRBX_PTH ---
PATIENT: KANA PAREDES LOC: [facility] U#:[id number] AGE/SX: 85/F ROOM: RE11/28/[address]: Dr. Richelle Arnold MD : 1940 BED: DIS: SPEC #: [id number] RECD: 11/28/20 12:39 STATUS: SANJEEV REQ #: [id number] [place]: 11/28/20 00:[address]: Richelle Arnold DEPT: SURGICAL PATHOLOGY RECD BY: Luis Armando Arechiga ENTERED: 11/28/20 12:39 SP TYPE: BREAST BX OTHR DR: Ghanshyam Marte Tissues: Left breast, NOS Procedures: Surgery Specimen Level IV HEADER OPERATION: Left stereotactic breast biopsy PRE-OP DIAGNOSIS: Left breast 1 o'clock density TISSUE SUBMITTED: Left breast core tissue ISCHEMIC TIME: 1 minute FIXATION TIME: 11 hours MICROSCOPIC DIAGNOSIS Left breast, 1 o'clock density, stereotactic core biopsy: Fragments of benign lymph node, may represent intermammary lymph node. Fibrocystic changes and intraductal hyperplasia without atypia. Focal minimal atypical lobular hyperplasia. See comment. ILYA:salma 11/29/2020 COMMENT Immunohistochemistry ([id number]) supports the above diagnosis. Correlation with clinical, radiologic findings and appropriate follow up are necessary. Case has been reviewed in consultation with Dr. Vanegas who concurs with the above diagnosis. IDC:AM MICROSCOPIC DESCRIPTION Slides are reviewed. GROSS DESCRIPTION Received in fixative is one container labeled with the patient's name and designated left breast. The specimen consists of multiple irregular and elongated fragments of yellow fatty tissue that in aggregate measure 8 x 5 x 0.2 cm. The specimen is totally submitted in three cassettes. / AM:salma 11/28/2020 TC:5 CPT: 58101
--- NOTE | 2020-11-28 | BRBX_PTH ---
PATIENT: KANA PAREDES LOC: [facility] U#:[id number] AGE/SX: 85/F ROOM: RE11/28/[address]: Dr. Richelle Arnold MD : 1940 BED: DIS: SPEC #: [id number] RECD: 11/28/20 12:39 STATUS: SANJEEV REQ #: [id number] [place]: 11/28/20 00:[address]: Richelle Arnold DEPT: SURGICAL PATHOLOGY RECD BY: Luis Armando Arechiga ENTERED: 11/28/20 12:39 SP TYPE: BREAST BX OTHR DR: Ghanshyam Marte Tissues: Left breast, NOS Procedures: Surgery Specimen Level IV HEADER OPERATION: Left stereotactic breast biopsy PRE-OP DIAGNOSIS: Left breast 1 o'clock density TISSUE SUBMITTED: Left breast core tissue ISCHEMIC TIME: 1 minute FIXATION TIME: 11 hours MICROSCOPIC DIAGNOSIS Left breast, 1 o'clock density, stereotactic core biopsy: Fragments of benign lymph node, may represent intramammary lymph node. Fibrocystic changes and intraductal hyperplasia without atypia. Focal minimal atypical lobular hyperplasia. See comment. SJ:salma 11/29/2020 SJ:samla 12/09/2020 COMMENT Immunohistochemistry ([id number]) supports the above diagnosis. Correlation with clinical, radiologic findings and appropriate follow up are necessary. Case has been reviewed in consultation with Dr. Vanegas who concurs with the above diagnosis. IDC:AM MICROSCOPIC DESCRIPTION Slides are reviewed. GROSS DESCRIPTION Received in fixative is one container labeled with the patient's name and designated left breast. The specimen consists of multiple irregular and elongated fragments of yellow fatty tissue that in aggregate measure 8 x 5 x 0.2 cm. The specimen is totally submitted in three cassettes. / RAYMUNDO:salma 11/28/2020 TC:5 CPT: 37107
--- NOTE | 2020-11-28 12:39 | PCM.OPRPT ---
Report of Operation Date of Procedure: 11/28/20 Pre-Operative Diagnosis: abnormal mammograms of left breast Post-Operative Diagnosis: same Surgery/Procedure Performed:: left breast stereotactic biopsy Description of Surgical Findings:: lesion biopsied in lateral mid aspect of left breast Type of Anesthesia:: Local - 1% xylocaine Specimen's removed: left breast tissue Estimated Blood Loss (mL): minimal Fluids Replaced: none Description of Procedure: After informed consent was given, the patient was brought into the Breast Biopsy suite. Appropriate time out protocol was followed. The patient was placed in the prone position on the stereotactic biopsy table. The patient?s left breast was then placed in the opening at the head of the biopsy table. A non destructive testing supervisor compression mammogram was then obtained in the lateral view. The suspicious radiological lesion was thus identified. Stereo pictures of the lesion were then taken for XYZ coordinates. The Mammotome biopsy stylus was then positioned where it would be entering into the patient?s breast. The skin at this site was then cleansed with a surgical skin preparation. The skin and subcutaneous tissues at this site were then infiltrated with 1% xylocaine. A small skin incision was made with an 11 blade scalpel. The biopsy stylus was then positioned into the patient?s breast at the proper coordinates of depth. Using the Mammotome vacuum-assist device, several core samples of breast tissue were obtained. I reviewed the filmss personally and concluded that the tissue sampling was adequate. A hemostatic marker clip was then placed into the biopsy cavity and a non destructive testing supervisor film revealed that it was properly deployed. The patient was then placed in the supine position and pressure was applied to the breast until no active bleeding was noted. A nylon suture was placed to reapproximate the skin. A unilateral mammogram in the CC and MLO view were then taken which revealed that the marker clip was in the same area as the previous suspicious lesion. The patient tolerated the procedure well and was discharged from the Breast Biopsy suite in good condition. - Complications none noted
== END ==
PROVIDERS: PCP Family Medicine; Referring Provider Surgery; Visit Provider Surgery
DX: R92.8 Other abnormal and inconclusive findings on diagnostic imaging of breast (principal); N62 Hypertrophy of breast; K21.9 Gastro-esophageal reflux disease without esophagitis; Z86.73 Personal history of transient ischemic attack (TIA), and cerebral infarction without residual deficits
CPT/HCPCS: 19081; 88305; 88341; 88342; J7050; A4648

== ENCOUNTER 2020-12-10 10:09 | Day surgery (SDC) | payer MEDICARE, SELFPAY ==
[2019-07-20 15:42] VITALS: BMI 23.8
--- NOTE | 2020-12-08 17:47 | PCM.HP.BLA ---
History and Physical Date of Admission: 12/10/20 Salima Pool 1940 ? ? PRIMARY PHYSICIAN: Ghanshyam Marte MD ? CHIEF COMPLAINT: atypical lobular hyperplasia of left breast ? HPI: The patient is a 80 year old female who presents with abnormal breast radiographs. She denies palpable breast masses. She denies nipple discharge. She denies previous breast infections and/or mastitis. She had a previous breast biopsy of the right breast years ago. Mother had unknown type of cancer and at age 48. Daughter had ovarian cancer, presently alive and well. Sister had breast cancer ? Mammograms 10/11/2020 IMPRESSION: INCOMPLETE: NEEDS ADDITIONAL IMAGING EVALUATION The multiple axillary nodes in the right breast posterior depth superior region seen on the mediolateral oblique view only are indeterminate. ? Additional views are recommended. The multiple axillary nodes in the left breast posterior depth superior region seen on the mediolateral oblique view only are indeterminate. ? Additional views are recommended. The grouped calcifications in the left breast at 12 o'clock middle depth are indeterminate. ?Additional views are recommended. The mass in the left breast upper outer aspect posterior depth is indeterminate. ?Additional views are recommended. ? Mammograms 11/12/2020 There is a probably benign axillary node in the left breast. There is an oval lymph node in the right breast at 11 o'clock posterior depth. There is a 9 mm oval mass with a macrolobulated margin in the left breast at 1 o'clock middle depth. There also are a grouped punctate calcifications in the left breast central to the nipple middle depth. The grouped punctate calcifications in the left breast central to the nipple middle depth are probably benign. No other significant masses or calcifications are seen in either breast. ? Ultrasound breast - right and left 11/12/2020 IMPRESSION: SUSPICIOUS FINDING - BIOPSY SHOULD BE CONSIDERED The oval lymph node in the right breast at 11 o'clock posterior depth is suspicious of malignancy. ?(1.3 cm x 0.7 cm x 0.6 cm lymph node with uniform cortical thickening in the right axillary tail. ?This lymph node is hypoechoic) An ultrasound guided biopsy is recommended. (0.9 cm x 0.7 cm x 0.5 cm oval mass in the left breast at 1 o'clock posterior depth 4 cm from the nipple. ?This oval mass is hypoechoic. ?This correlates with mammography findings)The 9 mm oval mass in the left breast at 1 o'clock middle depth is suspicious of malignancy. ?An ultrasound guided biopsy is recommended. ? Salima underwent US guided left breast biopsy done on 11/18/2020. ?Pathology reveals: FINAL DIAGNOSIS 1. Right breast, needle biopsy (A): - Fragments of benign-appearing lymph node with paracortical hyperplasia. 2. Left breast, needle biopsy (B): - Fragments of benign breast tissue and benign lymph node. The left breast ultrasound lesion did not correlate to the mammographic lesion, as seen by postprocedure mammograms to check the marker clip placement. Therefore a stereotactic breast biopsy was done - s/p left stereotactic breast biopsy done on 11/28/20 Pathology reveals: Fragments of benign lymph node, fibrocystic changes and intraductal hyperplasia without atypia, focal minimal atypical lobular hyerplasia ? PAST MEDICAL HISTORY ? Edema ? ? Fracture of metatarsal bone of right foot ? ? GERD (gastroesophageal reflux disease) ? ? Osteoarthrosis, unspecified whether generalized or localized, hand ? ? TIA (transient ischemic attack) 01/15/2017 ? [facility] ? Urge urinary incontinence ? PAST SURGICAL HISTORY ? BUNIONECTOMY, LAPIDUS-TYPE ? 2004? ? Rt ? CATARACT EXTRACTION HX Bilateral 09/2020 ? COLONOSCOP W/ OR W/O BRSH SPEC ? 07/16/04 ? Repeat in ? COLONOSCOP W/ OR W/O BRSH SPEC ? 09-07-14 ? EGD W/O BRSH SPECIMEN W/BX ? 09-07-14 ? STEREO LOC FOR CORE BRST BX RT ? 09-11-13 ? RIGHT ? TONSILLECTOMY HX ? 43 ? TOTAL ABDOM HYSTERECTOMY ? 1979 ? Hysterectomy, TOVA ? ? MEDICATIONS ? silver sulfADIAZINE (SILVADENE,THERMAZENE) 1 % cream Apply 1 application to affected area twice daily. (Patient not taking: Reported on 08/17/2019 ? tolterodine ER (DETROL LA) 4 mg 24 hr capsule TAKE 1 CAPSULE ONCE DAILY ? EPINEPHrine (EPIPEN) 0.3 mg/0.3 mL (1:1,000) atIn Take one if she is exposed to bee stings ? Fiber cap Take 2 capsules by mouth once daily. ? ? ALLERGIES: Bee Stings [Other] ? PERSONAL HISTORY: Social History ?Tobacco Use ? Smoking status: Never Smoker ? Smokeless tobacco: Never Used Substance Use Topics ? Alcohol use: Yes ? ? Comment: wine a few times a week ? Drug use: No ? FAMILY HISTORY ? Cancer Mother 40 ? ?Lymph nodes, ?Rectal ? Diabetes Father ? ? Diabetes Sister ? ? Diabetes Sister ? ? Breast Cancer Sister ? ? COPD Brother ? ? ? REVIEW OF SYSTEMS: General - denies fevers, denies anorexia, denies weight loss Cardiovascular - denies chest pain, denies history of NH Pulmonary - denies shortness of breath, denies coughing up blood Gastrointestinal - denies abdominal pain, denies hematemesis, denies blood in stools Neurological - had presumed TIA 2 years ago without sequelae, denies seizures, denies chronic numbness/weakness of extremities, denies chronic headaches Genitourinary - denies burning with urination, denies blood in urine Hematological - denies spontaneous/prolonged bleeding Skin - denies nonhealing skin wounds Musculoskeletal - has arthritis of fingers Endocrine - denies diabetes, no thyroid problems Psychological ? denies hallucinations Obstetrical - menarche onset at age 13, , first at age 21, breast feeding 1y/9m/9m, BCP use initially in 30s for 10 y, surgical menopause at age 44, HRT use for 5 y ? ? PHYSICAL EXAMINATION: General: The patient is 80 year old female, well nourished, well hydrated in no acute distress. The patient is oriented to time, place, and person. VITALS: Pulse 94, temperature 36.2 ?C (97.2 ?F), weight 57.6 kg (127 lb), SpO2 94 %. Body mass index is 24 kg/m?. Head ? Normocephalic. EOM intact with sclera clear and no icterus noted. Mouth with mucus membranes moist. Neck - supple with no jugular venous distention noted. Trachea is midline. No carotid bruits noted. No thyroid enlargement or thyroid nodules detected. No masses noted. Chest/breast ? no asymmetry of breasts noted, no suspicious skin lesions noted, no nipple discharge and both nipples everted, no breast masses noted Lungs ? clear to auscultation. Normal breath sounds. No rales/rhonchi/wheezing noted. No labored breathing noted, such as retractions. No cough heard. Heart ? normal S1 and S2 auscultated. No rubs/clicks/murmurs noted. Regular rate. Abdomen ? soft and benign. Normal bowel sounds No abdominal bruits noted. Difficult to determine if any masses or organomegaly due to body habitus. Extremities ? no calf tenderness noted. No pitting edema noted. Skin ? normal skin integrity. Lymph ? no cervical adenopathy detected, no supraclavicular adenopathy detected, no axillary adenopathy detected Neurological ? gait normal, no focal deficits noted Psych ? calm and appropriate RADIOLOGIC STUDIES: As Noted ? IMPRESSION: atypical lobular hyperplasia of left breast by needle core biopsy ? PLAN: I have discussed the above with the patient and her I have recommended left breast biopsy via wire localization - given findings of ALH and suspicious mammograms and family history of breast cancer. I have explained the procedure to the patient. I have counseled the patient as to the risks of the procedure, including but not limited to: infection, bleeding, injury to any blood vessels/nerves, scar tissue, wound infections, complications of anesthesia, etc. ? the patient understands. The patient was offered a surgery/procedure. The provider and patient have discussed in detail the risk of exposure to and/or potential harm posed by the COVID-19 virus with having a surgery/procedure at this time versus the risk of delaying the surgery/procedure. It is not possible to know either the risk of delaying the surgery or procedure or chance of getting an infection with perfect accuracy, but a joint decision was made between the patient and the provider to proceed at this time with the scheduled surgery/procedure. The patient wishes to proceed. I have answered all questions to the patient?s satisfaction and the patient has no further questions.? Richelle Arnold MD
[2020-12-10] VITALS (10 sets, daily range): BP systolic 106–126; BP diastolic 56–71; PULSE 71–87; RESP 14–18; TEMP 36.1–37.2; O2SAT 93–100; BMI 23.0
--- NOTE | 2020-12-10 | IMM_PTH ---
PATIENT: KANA PAREDES [place] [facility] [place][id number] AGE/SX: 80/F ROOM: RE12/10/[address]: Dr. Richelle Arnold MD : 1940 BED: DIS: 12/10/2020 SPEC #: [id number] RECD: 12/13/20 12:47 STATUS: SOUKash REQ #: [id number] [place]: 12/10/20 00:[address]: Richelle Arnold DEPT: IMMUNOHISTOCHEMISTRY RECD BY: Beverly Ray ENTERED: 12/13/20 12:50 SP TYPE: IMMUNO OTHR DR: Ghanshyam Marte Tissues: Left breast, NOS Procedures: BCL-2 (add) BCL-6 (add) CD10 (add) CD138 (add) CD15 (add) CD20 (add) CD23 (add) CD3 (add) CD30 (add) CD43 (add) CD45 (add) CD5 (add) CD79A (add) CK8 (add) CYCLIN (add) P53 (add) Pankeratin (initial) PHYSICIAN & [address] [address] SPECIMEN INFORMATION: Tissue Source: Left breast tissue Clinical Info: Atypical lobular hyperplasia of left breast Specimen Number: [id number] #2 CPT code: 42103, 32888 x16 METHODOLOGY: Deparaffinized sections of prefer/formalin-fixed tissue or PAP/DQ stained slides are incubated with monoclonal/polyclonal antibodies/oligonucleotide probes. Localization is made via biotin free immunoperoxidase method. Appropriate controls are performed and reacted as expected. Results on target cell population are indicated in the following table: RESULTS: ANTIBODY / CLONE RESULT Block 2 AE1-3 (AE1/AE3/PCK26) negative CK8 (18yolrL63) negative CD3 (PS1) positive CD5 (SP10) positive CD10 (56C6) negative CD15 (MMA) negative CD20 (L26) positive CD23 (1B12) negative CD30 (Ranjit-H2) negative CD43 (L60) positive CD45 (RP2/18) positive CD79a (11E3) negative CD138 (B-A38) negative BCL-2 (bcl-2/100/D5) negative BCL-6 (LV835A/A8) negative Cyclin D1/BCL-1 (SP4) negative P53 (DO-7) negative These tests were developed and their performance characteristics determined by [facility]. They may not have been cleared or approved by the U.S. Food and Drug Administration. The FDA has determined that such clearance or approval is not necessary. The above immunohistochemical/dualISH markers are ordered and reviewed by the Pathologist. INTERPRETATION: Left breast, core biopsy: Polytypical lymphoid tissue. AM:salma 12/16/2020
--- NOTE | 2020-12-10 10:02 | BI_ITS ---
SURGICAL BREAST SPECIMEN RADIOGRAPH CLINICAL: Document presence of tissue clip marker in biopsy specimen. FINDINGS: Specimen shows presence of tissue clip marker. Electronically Signed: Jarett Hebert MD at 16:02 EST , Service support , BI/Breast Biopsy Specimen
[2020-12-10] MEDS: Lactated Ringers 1,000 ML 75 ML IV (11:08)
[2020-12-10] MEDS: Cefazolin 2 GM in 0.9% Normal Saline 100 ML IV (12:13)
--- NOTE | 2020-12-10 13:16 | BRBX_PTH ---
PATIENT: KANA PAREDES LOC: [facility] – [place] U#:[id number] AGE/SX: 80/F ROOM: RE12/10/[address]: Dr. Richelle Arnold MD : 1940 BED: DIS: 12/10/2020 SPEC #: [id number] RECD: 12/10/20 13:21 STATUS: SANJEEV REJohnna #: [id number] [place]: 12/10/20 13:[address]: Richelle Arnold DEPT: SURGICAL PATHOLOGY RECD BY: Varghese Montero ENTERED: 12/11/20 11:02 SP TYPE: BREAST BX OTHR DR: Ghanshyam Marte Tissues: Left breast, NOS Procedures: Surgery Specimen Level V HEADER OPERATION: Breast biopsy, NL PRE-OP DIAGNOSIS: Atypical lobular hyperplasia of left breast TISSUE SUBMITTED: Left breast tissue, long suture famrer lateral, short suture farmer superior, wire farmer anterior, two short sutures enoch posterior MICROSCOPIC DIAGNOSIS Left breast, lumpectomy: Blood-filled biopsy cavity with associated reactive change. Benign lymph node tissue. Fibrocystic change with focal banal microcalcifications. Focal intraductal hyperplasia without atypia. Microfibroadenoma with associated hyalinization and banal microcalcifications. No evidence of malignancy. See Comment. AM:salma 12/13/2020 COMMENT Immunohistochemistry ([id number]) supports the diagnosis and reveal polytypic lymph node tissue. This may represent an intra mammary lymph node. Clinical correlation is suggested. Case has been reviewed in consultation with Dr. Jovel who concurs with the above diagnosis. IDC:SJ MICROSCOPIC DESCRIPTION Slides are reviewed. GROSS DESCRIPTION Received fresh and then postfixed in formalin labeled with the patient's name is a specimen designated left breast tissue. The specimen consists of a piece of fibroadipose tissue with wire localization measuring 5.5 x 6 x 4 cm. The specimen is oriented as follows: short suture - superior, long suture - lateral, wire - anterior and two short sutures - posterior. The specimen is inked as follows: anterior - yellow, posterior - black, superior - blue, inferior - green, medial - red and lateral - orange. Serial sections reveal a large biopsy cavity measuring 3.5 x 3.5 x 2 cm. No mass lesion is identified. This biopsy cavity is very close to the anterior margin of the specimen. The biopsy cavity occupies most of the specimen. Sections of the rest of the specimen reveal ortiz-yellow adipose cut surfaces with scant fibrous area. The biopsy cavity is <0.1 cm away from the closest inferior margin. [employer] sections are submitted in 12 cassettes as follows: 1 - perpendicular medial, lateral and superior margins, 2-12 - biopsy cavity with anterior, posterior and inferior margins. Sections will be submitted after additional fixation. / SJ:salma 12/11/20 TC:5 CPT: 47889
[2020-12-10] MEDS: Lidocaine 1%/Epi 1:200 (30ml) 30 ML AMPUL (13:20)
--- NOTE | 2020-12-10 13:59 | PCM.DC.BS ---
Discharge Activity: Return to Normal Activity, May not drive while taking narcotic pain medications. Call your doctor if your incision/area has: Continuous Slow Oozing, Foul Smelling Discharge Additional Instructions: Recommended pain control regimen - May take 600 mg ibuprofen (Motrin) and then in 3-4 hours, may take 650 mg acetaminophen (Tylenol), then in 3-4 hours may take 600 mg ibuprofen, then in 3-4 hours may take 650 mg acetaminophen and so on for 2-3 days May take narcotic pain medication for pain that is not controlled by above and at night for comfort through the night Leave dressings in place May get dressings wet in shower - do not scrub in the area and pat dry Do not soak - no tub baths/swimming For breast surgery - Wear supportive bra during the day Swelling and bruising will occur in the area, ice packs to the area may provide comfort, apply as tolerated Avoid excessive bouncing/jumping for at least two weeks, avoid pressure to left breast Allergies/Adverse Reactions: Allergies bee venom protein (honey bee) Allergy (Verified 12/10/20 10:52) Anaphylaxis venom-wasp Allergy (Verified 12/10/20 10:52) Anaphylaxis Medications to take at Discharge Tolterodine Tartrate [Detrol LA] 4 mg PO DAILY 01/15/17 Aspirin [Aspirin, Baby] 81 mg PO DAILY@0800 #30 tab.chew 07/20/19 Atorvastatin Calcium 20 mg PO QHS 12/06/20 Calcium Polycarbophil [Fiber Tabs] 625 mg PO DAILY 12/06/20 Hydrocodone Bitart/Apap 5-325 [Spraggs 5MG-325MG] 1 tablet PO Q12H PRN PRN 3 Days #6 tablet 12/10/20 Vitamin D3 5,000 iu PO DAILY 12/10/20 The following prescriptions were given: Hydrocodone Bitart/Apap 5-325 [Spraggs 5MG-325MG] 1 tablet PO Q12H PRN PRN 3 Days #6 tablet PRN Reason: Pain Score 6-10 Transmission Status: Sent to [facility] Primary Care Physician: Ghanshyam Marte [Primary Care Provider] - Please Follow Up With: Richelle Arnold MD - call When: to be seen in 7-10 days, please call for date and time, thank you
--- NOTE | 2020-12-10 14:04 | OP.PCM_ITS ---
Report of Operation Date of Procedure: 12/10/20 Pre-Operative Diagnosis: atypical lobular hyperplasia by needle core biopsy, abnormal mammograms, family history of breast cancer Post-Operative Diagnosis: same Surgery/Procedure Performed:: left breast biopsy via wire localization Description of Surgical Findings:: left breast tissue in mid lateral aspect of left breast with hematoma from previous needle core biopsy key operator: Caitlyn Infante Type of Anesthesia:: Local MAC Anesthesiologist: Za Herring Specimen's removed: left breast tissue Estimated Blood Loss (mL): < 20 ml Fluids Replaced: see anesthesia noted Description of Procedure: After informed consent was given, the patient was brought into the Breast Stereotactic Radiology suite. Appropriate time out protocol was followed. The patient was then placed in the prone position on the [place] stereotactic table. The patient?s left breast was placed in the opening at the head of the table. A supervisor paper testing compression mammogram was then obtained in the lateral view. The marker clip that was previously placed was identified. Stereo pictures of the lesion were then taken for XYZ coordinates. The Kopans needle was then positioned where it would be entering into the patient?s breast. The skin at this site was then cleansed with a surgical skin preparation. The skin and subcutaneous tissues at this site were then infiltrated with 1% xylocaine. The Kopans needle was then positioned into the patient?s breast at the proper coordinates of depth. A supervisor paper testing film was obtained which revealed the wire in proper position. The patient was then placed in the supine position and the wire was taped into place. A unilateral mammogram in the CC and MLO view were then taken for use in the OR. The patient tolerated this portion of the procedure well and was brought to the AC awaiting surgery in the OR. The patient was then brought to the Operating Room. Appropriate time out protocol was followed. The patient was then placed on the operating table in the supine position. A wire had already been placed in the stereotactic biopsy room in the radiology department as described above. The left breast with the wire in placed was then prepped with a sterile surgical skin preparation and sterile surgical drapes were placed. The skin and subcutaneous tissues at the site of the breast lesion was then infiltrated with 1% xylocaine with epinephrine. A transverse skin incision was then made at the wire entrance site with a 15 blade scalpel and carried down through to the subcutaneous tissues. Hemostasis was controlled with electrocautery. The wire was then palpated out within the breast tissue. The breast tissue surrounding the wire was then carefully palpated out and from the surrounding tissues using electrocautery. Of note, there was a hematoma from the previous needle core biopsy. The breast tissue was from the surrounding breast tissue trying to keep the hematoma intact. The breast tissue was marked with suture for margins. The breast tissue, once s eparated from the breast, was then forwarded to the radiology department, where a specimen mammogram revealed that the marker clip was within the specimen. I personally reviewed this and made the determination that the tissue obtained was appropriately adequate. The breast tissue was then forwarded to pathology for analysis. The wound cavity was carefully examined. No further suspicious tissue was palpated or visualized. Hemostasis was carefully controlled with electrocautery. The subdermal tissues were then approximated with vicryl suture. The incision was then reapproximated close using running monocryl suture. Cavilon and steristrips were then placed to reinforce the skin closure. Sponge, needle, and instrument count were verified and correct at the time of skin closure. A sterile dressing was then applied. The patient was then brought to the Recovery Room in stable condition. - Complications none noted - Admit VTE Documentation VTE Present on Admission: Yes VTE Mechan Device Prophylaxis: SCD's
[2020-12-10] MEDS: Acetaminophen 325 MG Tablet 650 MG PO (15:42)
== END 2020-12-10 17:46 | disposition home or self-care (01) ==
LOC: SDC 10:11 → AC 10:11
PROVIDERS: PCP Family Medicine; Referring Provider Surgery; Visit Provider Surgery
PROC: (CPT 19125; principal; 2020-12-10 12:40)
DX: N63.21 Unspecified lump in the left breast, upper outer quadrant (principal); N62 Hypertrophy of breast; R92.8 Other abnormal and inconclusive findings on diagnostic imaging of breast; K21.9 Gastro-esophageal reflux disease without esophagitis; J44.9 Chronic obstructive pulmonary disease, unspecified; Z80.3 Family history of malignant neoplasm of breast; Z86.73 Personal history of transient ischemic attack (TIA), and cerebral infarction without residual deficits; Z80.41 Family history of malignant neoplasm of ovary
CPT/HCPCS: 00400; 19125; 19281; 76098; 87426; 88305; 88307; 88341; 88342; C9803; J7120; A4216; J2405

== ENCOUNTER 2023-02-18 15:44 | Inpatient (IN) | payer MEDICARE, SELFPAY ==
[2023-02-18] VITALS (20 sets, daily range): BP systolic 120–186; BP diastolic 79–115; PULSE 88–104; RESP 14–19; TEMP 36.1–36.6; O2SAT 95–100; BMI 24.7; BMI 54.5; BMI 24.2
--- NOTE | 2023-02-18 15:48 | EKG12_ITS ---
Test Reason : POSS STROKE Blood Pressure : / mmHG Vent. Rate : 104 BPM Atrial Rate : 104 BPM P-R Int : 190 ms QRS Dur : 068 ms QT Int : 356 ms P-R-T Axes : 070 003 088 degrees QTc Int : 468 ms Sinus tachycardia Possible Left atrial enlargement Septal infarct , age undetermined Abnormal ECG Confirmed by YELENA NICHOLAS, JUANA ([id number]), features editor CURTIS CURTIS ([id number]) on 02/22/2023 10:48:53 AM Referred By: Confirmed By:KASANDRA KIRK MD
--- NOTE | 2023-02-18 15:48 | CT_ITS ---
We are attempting to reach an attending provider to discuss findings. An addendum with communication details will be sent when the communication is complete. EXAM: CT brain without IV contrast. HISTORY: Neuro deficit, acute, stroke suspected TECHNIQUE: No intravenous contrast. A radiation dose optimization technique was used for this scan. COMPARISON: Head CT July 19, 2019. LIMITATIONS: None. BRAIN: Mild involutional change. Mild low attenuation bilaterally within the deep white matter, likely secondary to chronic microvascular ischemia. VENTRICLES: No hydrocephalus. EXTRA-AXIAL SPACES: No acute hemorrhage. CALVARIUM/SKULL BASE: No acute fracture. FACE/SINUSES: No significant abnormality. SOFT TISSUES: Normal. OTHER: None. CONCLUSION: No acute intracranial abnormality. Electronically Signed: Juan Orlando MD at 16:12 EDT , CT/STROKE Brain/Head without Cont IMPRESSION: undefined
--- NOTE | 2023-02-18 15:49 | CT_ITS ---
EXAM: CT angiogram brain. HISTORY: Neuro deficit, acute, stroke suspected TECHNIQUE: CTA Head and Neck W/ Contrast Injection (and W/O Contrast Images if performed). Multiplanar reconstructions were obtained. A radiation dose optimization technique was used for this scan. COMPARISON: CTA July 19, 2019. LIMITATIONS: None. DISTAL CAROTID ARTERIES: No significant stenosis. ANTERIOR CEREBRAL ARTERIES: No significant stenosis. MIDDLE CEREBRAL ARTERIES: No significant stenosis. POSTERIOR CEREBRAL ARTERIES: No significant stenosis. BASILAR ARTERY: No significant stenosis. 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 OTHER: None. CONCLUSION: No significant stenosis. 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 EXAM: CT angiogram neck. HISTORY: Neuro deficit, acute, stroke suspected TECHNIQUE: CTA Head and Neck W/ Contrast Injection (and W/O Contrast Images if performed). Multiplanar reconstructions were obtained. A radiation dose optimization technique was used for this scan. COMPARISON: CTA July 19, 2019. LIMITATIONS: None. CAROTID ARTERIES: No significant stenosis. VERTEBRAL ARTERIES: No significant stenosis. Variant anatomy of the distal right vertebral artery without direct communication to the basilar artery. BONES/SOFT TISSUES: No acute fracture. OTHER: None. CONCLUSION: No significant stenosis. N.B. : The above Results were Read Back by Juan Orlando MD to Clint Escobedo MD, and understanding confirmed on 02/18/2023 16:23:33 (ET). Electronically Signed: Juan Orlando MD at 16:24 EDT , CT/STROKE CTA Head AND Neck W/Con IMPRESSION: undefined
--- NOTE | 2023-02-18 15:59 | ED.VIS.STROK ---
HPI History of Present Illness Chief Complaint: Stroke Alert Informant: patient and spouse/S.O. Onset/Context/Timing Onset: Today Context: Sudden Onset Timing: Continuous Quality and Location: Positive for Expressive Aphasia Current Severity: Moderate Maximum Severity: Moderate Associated Symptoms Associated Symptoms: Negative for Headache, Nausea, Vomiting or Chest Pain Narrative Narrative: 82-year-old female really minimal significant past medical history primarily of high cholesterol. No prior history of stroke, TIA, intracranial surgery or cardiac history. Patient is unable to speak. Her is giving the history. I was called to triage to see her. states she was working outside. Had been well all day. She came and took a nap. States she laid down around 2:15 and woke up around 3:30 p.m. He states before she took a nap she was fine. He said after she woke up she has been unable to speak. He states she is never had any problems like this before. She has not had any complaints today. She did not fall or hit her head. She has had no headaches. Prior similar symptoms: No Recent Illness/Hospitalization: No [facility] Medical History (Updated 02/18/23 @ 16:18 by Beverly Spencer) Brain aneurysm Hyperlipemia Home Medications tolterodine 4 mg capsule,extended release 24 hr (Detrol LA) 4 mg PO DAILY 01/15/17 [History Last Taken 07/18/19] aspirin 81 mg chewable tablet 81 mg PO DAILY@0800 ##30 07/20/19 [Rx Last Taken Unknown] atorvastatin 40 mg tablet 20 mg PO QHS 12/06/20 [History Last Taken Unknown] calcium polycarbophil 625 mg tablet 625 mg PO DAILY 12/06/20 [History Last Taken Unknown] Vitamin D3 5,000 iu PO DAILY 12/10/20 [History Last Taken Unknown] Allergy/AdvReac Type Severity Reaction Status Date / Time bee venom protein (honey bee) Allergy Anaphylaxis Verified 05/12/22 08:08 venom-wasp Allergy Anaphylaxis Verified 05/12/22 08:08 Family History Other Cancer Surgical History H/O: hysterectomy Social History Smoking Status: Never smoker ROS ROS ED ROS Narrative No recent illness. No recent hospitalization. Review of Systems ROS Unobtainable: Denies due to encephalopathy Constitutional Constitutional ED: Denies chills or fever(s) Eyes Eyes: Denies blurry vision ENT ENT ED: Denies ear pain Cardiovascular Cardiovascular: Denies chest pain Respiratory/Chest Respiratory/Chest: Denies cough or dyspnea Gastrointestinal Gastrointestinal: Denies abdominal pain Genitourinary Genitourinary ED: Denies dysuria or hematuria Musculoskeletal Musculoskeletal: Denies arthralgias Integumentary Denies abscess or Abrasions Neurologic Neurologic: Denies headache(s) Psychiatric Psychiatric: Denies anxiety or depression Endocrine Endocrinology: Denies polydipsia or polyphagia Hematologic/Lymphatic Hematologic/Lymphatic: Denies easy bleeding or easy bruising Allergic/Immunologic Allergic/Immunologic ED: Denies mouth swelling or urticaria EXAM Physical Exam Narrative Exam Narrative: 82-year-old female in a wheelchair in triage room 1. Vital signs are stable other than her blood pressure elevated at 139/115. H EENT exam unremarkable. No facial droop. She does have dysarthria. She has trouble putting words together to make a sentence. Speech is not slurred. Neck nontender. Lungs are clear. Heart regular rhythm no murmur. Rate about 90. Chest wall nontender. Abdomen soft nontender. Moving all 4 extremities. Normal system support analyst strength. Normal dorsi plantarflexion. Neurologically she is awake. She is alert. She has definite dysarthria. Again no facial droop. Pupils are round reactive light. Extra motions are intact. She has equal symmetrical system support analyst strength. Dorsi and plantarflexion. She has no drift. Const Vital Signs: 02/18/23 15:48 02/18/23 16:06 02/18/23 15:48 Temperature 97 F L Temperature Source Temporal Pulse Rate 91 103 H Respiratory Rate 14 16 Blood Pressure 139/115 H 186/79 H Blood Pressure Mean 123 114 Pulse Ox 100 98 98 Oxygen Delivery Method Room Air Room Air Room Air 02/18/23 15:48 Temperature Temperature Source Pulse Rate 103 H Respiratory Rate 16 Blood Pressure 186/79 H Blood Pressure Mean 114 Pulse Ox 99 Oxygen Delivery Method Room Air Positive well nourished and well developed; Negative for obese, cachectic, contractures or unkempt General Appearance ED: well developed; Negative for unkempt, cachectic, contractures or NAD Nutritional Appearance: Negative for cachectic or obese HEENT Reports moist mucous membranes; Denies dry mucous membranes atraumatic; Negative for trauma Mouth ED: No dry mucous membranes Mouth: No dry mucous membranes Eyes PERRL and EOMs intact bilaterally General Eye ED: Negative for pale conjunctiva or scleral icterus Neck no lymphadenopathy, supple and no JVD General: Negative for tenderness Thyroid: Negative for other Chest Wall inspection of chest normal and palpation of chest normal Resp normal respiratory effort and clear to auscultation bilaterally Effort and Inspection: Negative for retractions Auscultation: Negative for rales, rhonchi or wheezes Cardio no murmurs Rate: regular rate Rhythm: regular rhythm Heart Sounds: Negative for S1 normal or S2 normal GI normal to inspection, nondistended, normoactive bowel sounds, soft to palpation, non-tender, non-distended and no masses Inspection: Negative for abdominal distention Auscultation: normoactive bowel sounds Palpation: Negative for tender or guarding Back/Spine no CVA tenderness General Back: Negative for CVA tenderness Cervical Spine: Negative for cervical spine tenderness Thoracic Spine / Upper Back: Negative for thoracic spinal tenderness Lumbar Spine / Lower Back: Negative for lumbar spinal tenderness Extremity normal to inspection General Extremety ED: Negative for deformity, edema or tenderness General Extremity: Negative for deformity or edema Neuro Neuro Narrative: Unable to obtain due to her dysarthria. Sensorium / Orientation: alert and oriented to person Speech: Negative for speech normal Motor Exam: strength 5/5 throughout Psych mental status grossly normal Appearance: Negative for unkempt Mood & Affect: Negative for depressed Attention / Concentration: Negative for other Skin no wounds General Skin Exam: Negative for jaundice Lesions: no lesions Rashes: no rashes Trauma: Negative for abrasion NIHSS NIHSS Initial: 1a Level of Consciousness: 1 1b LOC Questions (Score 2 if aphasic/stupor): 2 1c LOC Commands (Only score 1st attempt): 0 2 Best Gaze (If aphasic, use reflexive mvmts.): 0 3 Visual: 0 4 Facial Palsy: 0 5 Motor Arm Right (UN = amputation/fusion): 0 5 Motor Arm Left: 0 6 Motor Leg Right: 0 6 Motor Leg Left: 0 7 Limb ataxia (Only + if out of proportion): 0 8 Sensory (Aphasia/stupor=0 or 1, coma=2): 0 9 Best Language: 0 10 Dysarthria (mute, coma=2, intubated=UN): 2 11 Extinction and Inattention (only scored if +): 0 Total Score: 5 MDM MDM MDM Narrative Medical decision making narrative: Healthy 82-year-old with a history of high cholesterol. although somnolescent a dysarthria today. Occurred around 2:15 to no later than 3:20 PM p.m. The hiistory and exam are consistent with a stroke with dysarthria. Patient would be a Z[facility] place candidate. She is undergoing stroke protocol. She will be taken immediately from triage to CAT scan for CT of the brain and CTA head and neck. NIH score is around a 5. Patient appears to definitely have a dysarthria and probably receptive aphasia also. Patient is also having trouble following certain commands. Patient was evaluated by the [facility] neurologist and their evaluation is completed around 4:20 PM. It appears that both they and I believe that the patient would benefit from thrombolysis. We discussed her history of a small 2 mm aneurysm. There is no signs of bleed on the CT or CTA. I discussed these results with the radiologist. Treatment options with the patient's . Also he has agreed to. He understands risk and benefits. I discussed the risk of head bleed. You but repeat exam at 445 post thrombolysis patient is definitely showing signs of improvement. Her speech is improving. I presume this her expressive aphasia is improving. Since she is moving all 4 extremities. She is not back to her baseline but showing significant signs of improvement. is at bedside. Her current pressure is 169/89. She has not been given any antihypertensive meds. Patient will be admitted to the ICU. I have already spoken to the hospitalist or see her upstairs. History & Record Review Discussion w/independent historian: Family Lab Data Attestation: I reviewed the patient's lab results. Lab results narrative: CBC normal. White count 8. H&H of 13 and 41. Platelets 308. PT/INR PTT normal. Electrolytes unremarkable. Anion gap of 8. BUN of 17 creatinine 0.7. Glucose 174. Troponin normal at 4. EKG unremarkable. CT of the brain showed no acute bleed. Labs: Laboratory Results - last 24 hr 02/18/23 02/18/23 02/18/23 15:50 15:50 15:50 WBC 8.9 RBC 4.50 Hgb 13.2 Hct 41.5 MCV 92.2 MCH 29.3 MCHC 31.8 L RDW Std Deviation 46.1 H RDW Coeff of [place] 13.6 Plt Count 308 MPV 9.0 Immature Gran % (Auto) 0.300 Neut % (Auto) 59.3 Lymph % (Auto) 28.7 [place] % (Auto) 6.6 Eos % (Auto) 4.3 Baso % (Auto) 0.8 Absolute Neuts (auto) 5.3 Absolute Lymphs (auto) 2.57 Nucleated RBC % 0 PT 12.9 INR 1.0 APTT 27.3 Sodium 139 Potassium 3.5 Chloride 104 Carbon Dioxide 27.0 Anion Gap 8 BUN 17 Creatinine 0.72 Estim Creat Clear Calc 30.62 Est GFR (MDRD) Af Amer 100 Est GFR (MDRD) Non-Af 83 BUN/Creatinine Ratio 23.7 H Glucose 174 H Calcium 9.4 Troponin I High Sens 4 POC Glucose 02/18/23 16:02 WBC RBC Hgb Hct MCV MCH MCHC RDW Std Deviation RDW Coeff of [place] Plt Count MPV Immature Gran % (Auto) Neut % (Auto) Lymph % (Auto) [place] % (Auto) Eos % (Auto) Baso % (Auto) Absolute Neuts (auto) Absolute Lymphs (auto) Nucleated RBC % PT INR APTT Sodium Potassium Chloride Carbon Dioxide Anion Gap BUN Creatinine Estim Creat Clear Calc Est GFR (MDRD) Af Amer Est GFR (MDRD) Non-Af BUN/Creatinine Ratio Glucose Calcium Troponin I High Sens POC Glucose 142 H Radiography Diagnostic Testing: Clinical Impression(s) from Imaging Studies Brain CT 02/18/23 15:48 IMPRESSION: undefined Head/Neck CTA 02/18/23 15:49 IMPRESSION: undefined Rhythm Strip Rhythm Strip: Sinus Tach Rate: 104 Ectopy: None EKG Initial EKG: Attestation: I personally reviewed and interpreted this EKG as follows: Interpretation: Sinus Rhythm, No Acute Injury Pattern and Sinus Tachycardia Comments: Sinus tachycardia rate of 104. No acute signs of IA, ischemia or dysrhythmia. Prior EKG tracings: available for review Prior: Unchanged Management Discussion w/another healthcare provider: Hospitalist, Heel Caser and Radiologist Stroke Documentation Questions Stroke Team Activated: Yes Reviewed Inclusion/Exclusion criteria: Yes Was Patient considered for Endovascular Intervention?: No-CTA negative, determined not to be an endovascular candidate IV Thrombolytic Administered: Yes No contraindications from thrombolytic administration: No Risks, Benefits, Alternatives Discussed: Yes Critical Care Time Critical Care Time: Yes Critical care time (excluding procedures): 30-74 minutes, Including time spent:, Discussing w/Patient &/or Family/Batter Depositor, Discussing w/Consultants, Arranging Admission or Transfer and Performing Direct Patient Care at Bedside Discharge Plan Dx/Rx/DC Orders Clinical Impression: Acute stroke due to ischemia, Dysarthria due to acute stroke, Elevated blood pressure reading, History of high cholesterol Disposition Disposition: Acute Care Hospital [facility]
[2023-02-18 16:00] LABS: Absolute Lymphocyte Count 2.57 X10^3/uL (0.83-4.51); Absolute Neutrophil Count 5.3 X10^3/uL (2.0-7.7); Basophil# 0.07 X10^3/uL; Basophil% 0.8 % (0-1); Eosinophil# 0.38 X10^3/uL; Eosinophils% 4.3 % (0-5); Hematocrit 41.5 % (37-47); Hemoglobin 13.2 g/dL (12.0-15.0); Lymphocyte # 2.57 X10^3/ul (0.83-4.51); Lymphocyte % 28.7 % (19-41); Mean Corp Hgb Conc 31.8 g/dL (32-36); Mean Corpuscular Hgb 29.3 pg (27.0-32.0); Mean Corpuscular Volume 92.2 fL (81-99); Monocyte# 0.59 X10^3/uL; Monocyte% 6.6 % (0-10); NRBC Flagged by Analyzer 0 % (0-5); Neutrophil % 59.3 % (47-70); Platelet Count 308 K/mm3 (150-450); RBC Distribution Width CV 13.6 % (11.6-14.6); RBC Distribution Width SD 46.1 fl (35.1-43.9); White Blood Count 8.9 K/mm3 (4.4-11.0)
--- NOTE | 2023-02-18 16:00 | CM.ED ---
Addendum entered by Sandee Chen 02/18/23 16:45: SW met with patient's in triage and introduced herself and role as [facility] Rig Manager. Patient's RN assisting in returning to patient's room and reports no current needs. SW remains available if needs arise. JOSE Whitley Original Note: Social Work Note Referral Source: Stroke alert Referral Reason: emotional support SW responded to stroke alert to provide family with support. Patient's at patient's bedside for CT. SW informed RN SW is available if needs arise. JOSE Whitley
--- NOTE | 2023-02-18 16:06 | ED.RN ---
CAN NOT GO INTO INITIAL TRIAGE TO CORRECT WEIGHT.
[2023-02-18 16:14] LABS: Partial Thromboplast Time 27.3 Seconds (24.1-36.2); Prothrombin Time (Protime)PT. 12.9 SECONDS (11.7-14.9)
[2023-02-18 16:20] LABS: Bedside Glucose 142 mg/dL (74-106)
[2023-02-18 16:21] LABS: Anion Gap 8 (5-15); BUN 17 mg/dL (7-18); BUN/Creat Ratio 23.7 RATIO (10-20); Calcium,Total 9.4 mg/dL (8.5-10.1); Chloride 104 mmol/L (98-107); Creatinine, Serum 0.72 mg/dL (0.55-1.02); EST Glomerular Filtration Rate 83 mL/min (>60); Est Glom Filt Rate - Afr Amer 100 mL/min (>60); Estimated Creatinine Clearance 30.62 ml/min; Glucose 174 mg/dL (74-106); Potassium 3.5 mmol/L (3.5-5.1); Sodium Level 139 mmol/L (136-145); Troponin-I HS 4 pg/mL (3.0-54.0)
[2023-02-18] MEDS: Tenecteplase 14.4 MG in Syringe 1 EACH 2073.6 MG IV (16:33)
[2023-02-18] MEDS: 0.9% Normal Saline 1,000 ML 100 ML IV (17:08)
--- NOTE | 2023-02-18 17:30 | ED.RN ---
pt calling out pt stating she has a headache. pt pointing to the left side of head. pt stating she gets headaches off and on to that area and has for awhile now. stating she had one yesterday. Dr. Hernández updated. NO CT scan of head.
--- NOTE | 2023-02-18 17:34 | CT_ITS ---
EXAM: CT brain without IV contrast. HISTORY: new onset headache post tnk -- PATIENT HAD IV CONTRAST EARLIER IN DAY TECHNIQUE: No intravenous contrast. Residual intravenous contrast is present from a recent CTA. A radiation dose optimization technique was used for this scan. COMPARISON: Head CT from 3:50 PM on the same day. LIMITATIONS: None. BRAIN: Mild involutional change. Mild low attenuation bilaterally within the deep white matter, likely secondary to chronic microvascular ischemia. VENTRICLES: No hydrocephalus. EXTRA-AXIAL SPACES: No acute hemorrhage. AIDOC flagged a hyperdensity at the venous sinus confluence which represents a normal venous sinus with residual contrast from the prior CTA. CALVARIUM/SKULL BASE: No acute fracture. FACE/SINUSES: No significant abnormality. SOFT TISSUES: Normal. OTHER: None. CONCLUSION: No acute intracranial abnormality. Electronically Signed: Juan Orlando MD at 18:00 EDT , CT/Brain/Head without Contrast IMPRESSION: undefined
--- NOTE | 2023-02-18 18:16 | RAD_ITS ---
INDICATION: Neuro deficit, acute, stroke suspected EXAMINATION: Frontal view of the chest COMPARISON: Chest x-ray July 19, 2019. FINDINGS: Frontal view of the chest was obtained. The cardiac silhouette is not enlarged. Mild bibasilar atelectasis. No pneumothorax. RAD/Chest 1 View IMPRESSION: Mild bibasilar atelectasis. Electronically Signed: Juan Orlando MD at 18:53 EDT ,
--- NOTE | 2023-02-18 18:43 | CT_ITS ---
We are attempting to reach an attending provider to discuss findings. An addendum with communication details will be sent when the communication is complete. EXAM: CT brain without contrast HISTORY: Worsening Neuro symptoms after Tenectaplase, right sided neglect. TECHNIQUE: No intravenous contrast. Residual intravenous contrast is present from a recent CTA. A radiation dose optimization technique was used for this scan. COMPARISON: Head CT from 5:40 PM on the same day. LIMITATIONS: None. BRAIN: Mild involutional change. Mild low attenuation bilaterally within the deep white matter, likely secondary to chronic microvascular ischemia. VENTRICLES: No hydrocephalus. EXTRA-AXIAL SPACES: A region of ill-defined hyperdensity in the right temporal lobe on images 14 through 16 of axial series 2 measures approximately 1.6 x 0.4 cm. This hyperdensity is new since the prior study and raises the possibility of acute subarachnoid hemorrhage. Residual enhancement from recent intravenous contrast administration is an alternative explanation although the focus is new since the prior exam and is asymmetric without similar enhancement in the left temporal lobe. CALVARIUM/SKULL BASE: No acute fracture. FACE/SINUSES: No significant abnormality. SOFT TISSUES: Normal. OTHER: None. CONCLUSION: Small focus of hyperdensity within the right temporal lobe is new since the prior exam and concerning for acute subarachnoid hemorrhage. Electronically Signed: Juan Orlando MD at 19:19 EDT , CT/Brain/Head without Contrast IMPRESSION: undefined
--- NOTE | 2023-02-18 20:00 | NURSING ---
Dr. Bey at bedside speaking to pt's . Pt to be transferred to [facility] by [facility] helicopter. Spoke with [facility] transfer center, who said pt will go to the emergency department. Faxed pt's facesheet to [phone] per request. Transport set up with [facility]. [facility] transfer center notified. Pt's notified.
--- NOTE | 2023-02-18 20:11 | HP.PCM.HOS_ITS ---
HPI - General General Date of Admission: 02/18/23 Date of Service: 02/18/23 Chief Complaint: Speech difficulty HPI Narrative KANA PAREDES, is a 82 F who presents to the emergency room at [facility] as a stroke team, evidently she awoke from sleep this afternoon after lying down about 215 this afternoon, at 330 she woke up and was unable to carry on a conversation or speak. provided the information to the emergency room physician. Examination of the patient revealed an NIH score of 5, patient was awake, she had dysarthria, no facial droop was noted, conductor and engineer strength was symmetrical. Patient was sent for a CT scan of the brain and a CT of the head and neck, there was no evidence of intracranial hemorrhage, [facility] neurology performed an evaluation about 4:20 PM and they felt the patient would benefit from thrombolysis. This was discussed with the patient's , he agreed to the administration of Tenecteplase. Patient was moved to the ICU sometime after 6 PM tonight, she exhibited some increased right-sided neglect and her dysarthria became worse. I ordered a CT of the brain which showed a p ossible subarachnoid hemorrhage within the right temporal lobe, this area was 1.6 cm x 0.4 cm, I contacted [facility] and talk to a neurosurgeon who advised transferring the patient by air to [facility] for further treatment. I examined the patient in the ICU, she does follow commands and her conductor and engineer strength appears equal, she has severe dysarthria and expressive aphasia. Patient will be transferred to [facility] and admitted to the service of Dr. Cano, I talked to the patient and her about her medical care. [facility] Medical History (Updated 02/18/23 @ 16:18 by Beverly Spencer) Brain aneurysm Hyperlipemia Home Medications tolterodine 4 mg capsule,extended release 24 hr (Detrol LA) 4 mg PO DAILY 01/15/17 [History Last Taken 07/18/19] aspirin 81 mg chewable tablet 81 mg PO DAILY@0800 ##30 07/20/19 [Rx Last Taken Unknown] atorvastatin 40 mg tablet 20 mg PO QHS 12/06/20 [History Last Taken Unknown] calcium polycarbophil 625 mg tablet 625 mg PO DAILY 12/06/20 [History Last Taken Unknown] Vitamin D3 5,000 iu PO DAILY 12/10/20 [History Last Taken Unknown] Allergy/AdvReac Type Severity Reaction Status Date / Time bee venom protein (honey bee) Allergy Anaphylaxis Verified 05/12/22 08:08 venom-wasp Allergy Anaphylaxis Verified 05/12/22 08:08 Family History Other Cancer Surgical History H/O: hysterectomy Social History Smoking Status: Never smoker ROS ROS Narrative Review of systems could not be obtained from the patient due to her dysarthria, information was obtained from patient's medical record, the patient's , and other physicians and nurses who attended the patient Vital Signs Vital Signs Vital Signs: 02/18/23 15:48 02/18/23 16:06 02/18/23 15:48 Temperature 97 F L Temperature Source Temporal Pulse Rate 91 103 H Respiratory Rate 14 16 Blood Pressure 139/115 H 186/79 H Blood Pressure Mean 123 114 Blood Pressure Source Blood Pressure Position Blood Pressure Location Pulse Ox 100 98 98 Oxygen Delivery Method Room Air Room Air Room Air 02/18/23 15:48 02/18/23 16:33 02/18/23 16:33 Temperature 97.6 F L Temperature Source Temporal Pulse Rate 103 H 98 Respiratory Rate 16 19 H Blood Pressure 186/79 H 171/82 H 168/90 H Blood Pressure Mean 114 116 Blood Pressure Source Monitor Blood Pressure Position Semi-Fowlers Blood Pressure Location Left Arm Pulse Ox 99 96 Oxygen Delivery Method Room Air Room Air 02/18/23 16:45 02/18/23 16:45 02/18/23 16:43 Temperature 97.5 F L 97.6 F L Temperature Source Temporal Temporal Pulse Rate 99 99 99 Respiratory Rate 16 18 18 Blood Pressure 169/89 H 169/89 H 169/89 H Blood Pressure Mean 115 115 115 Blood Pressure Source Monitor Blood Pressure Position Semi-Fowlers Blood Pressure Location Right Arm Pulse Ox 99 97 98 Oxygen Delivery Method Room Air Room Air Room Air 02/18/23 17:00 02/18/23 17:00 02/18/23 17:15 Temperature 97.6 F L 97.5 F L Temperature Source Temporal Temporal Pulse Rate 96 96 95 Respiratory Rate 16 15 16 Blood Pressure 152/83 H 153/86 H Blood Pressure Mean 106 108 Blood Pressure Source Monitor Monitor Blood Pressure Position Semi-Fowlers Semi-Fowlers Blood Pressure Location Right Arm Right Arm Pulse Ox 98 98 95 Oxygen Delivery Method Room Air Room Air Room Air 02/18/23 17:30 02/18/23 17:45 02/18/23 18:00 Temperature 97.6 F L 97.6 F L Temperature Source Temporal Temporal Pulse Rate 99 93 97 Respiratory Rate 15 16 Blood Pressure 150/89 H 150/83 H Blood Pressure Mean 109 105 Blood Pressure Source Monitor Monitor Blood Pressure Position Semi-Fowlers Semi-Fowlers Blood Pressure Location Right Arm Right Arm Pulse Ox 97 97 Oxygen Delivery Method Room Air Room Air 02/18/23 18:00 02/18/23 18:15 02/18/23 18:30 Temperature 97.6 F L 97.5 F L 97.9 F Temperature Source Temporal Temporal Temporal Pulse Rate 96 98 101 H Respiratory Rate 18 19 H 18 Blood Pressure 159/104 H 150/91 H 169/91 H Blood Pressure Mean 122 110 117 Blood Pressure Source Monitor Monitor Monitor Blood Pressure Position Semi-Fowlers Semi-Fowlers Semi-Fowlers Blood Pressure Location Right Arm Right Arm Right Arm Pulse Ox 97 97 98 Oxygen Delivery Method Room Air Room Air Room Air 02/18/23 19:00 Temperature Temperature Source Pulse Rate 97 Respiratory Rate 16 Blood Pressure 182/82 H Blood Pressure Mean 115 Blood Pressure Source Monitor Blood Pressure Position Semi-Fowlers Blood Pressure Location Right Arm Pulse Ox 98 Oxygen Delivery Method Room Air Weight Weight: 56.019 kg Body Mass Index (BMI) 24.2 Physical Exam Const alert, no apparent distress, average body habitus and healthy appearing HEENT normocephalic and head/scalp atraumatic Eyes PERRL, EOMs intact bilaterally and conjunctivae normal Resp normal respiratory effort, no retractions, no use of accessory muscles and clear to auscultation bilaterally Cardio regular rate, regular rhythm, S1 normal heart sound, S2 normal heart sound and no murmurs GI normal to inspection, nondistended, normoactive bowel sounds, soft to palpation, non-tender and non-distended Extremity normal to inspection and no clubbing, cyanosis or edema Neuro CN's II-XII intact bilaterally Neuro Narrative: Patient has marked dysarthria, she does follow commands Psych Psych Narrative: Patient is alert, she does not appear to be in any distress, she is not agitated Results Lab / Micro Data Result Diagrams: 02/18/23 15:50 02/18/23 15:50 Labs: Laboratory Results - last 24 hr 02/18/23 15:50: WBC 8.9, RBC 4.50, Hgb 13.2, Hct 41.5, MCV 92.2, MCH 29.3, MCHC 31.8 L, RDW Std Deviation 46.1 H, RDW Coeff of [place] 13.6, Plt Count 308, MPV 9.0, Immature Gran % (Auto) 0.300, Neut % (Auto) 59.3, Lymph % (Auto) 28.7, [place] % (Auto) 6.6, Eos % (Auto) 4.3, Baso % (Auto) 0.8, Absolute Neuts (auto) 5.3, Absolute Lymphs (auto) 2.57, Nucleated RBC % 0 02/18/23 15:50: PT 12.9, INR 1.0, APTT 27.3 02/18/23 15:50: Sodium 139, Potassium 3.5, Chloride 104, Carbon Dioxide 27.0, Anion Gap 8, BUN 17, Creatinine 0.72, Estim Creat Clear Calc 30.62, Est GFR (MDRD) Af Amer 100, Est GFR (MDRD) Non-Af 83, BUN/Creatinine Ratio 23.7 H, Glucose 174 H, Calcium 9.4, Troponin I High Sens 4 02/18/23 16:02: POC Glucose 142 H Rhythm Strip Rhythm Strip: Sinus Tach Rate: 104 Ectopy: None Radiology Impression Brain CT 02/18/23 15:48 IMPRESSION: undefined ADDENDUM: 02/18/23 1630 IMPRESSION: undefined Head/Neck CTA 02/18/23 15:49 IMPRESSION: undefined ADDENDUM: 02/18/23 1631 IMPRESSION: undefined Brain CT 02/18/23 17:34 IMPRESSION: undefined Chest X-Ray 02/18/23 18:16 IMPRESSION: Mild bibasilar atelectasis. Electronically Signed: Juan Orlando MD at 18:53 EDT , Brain CT 02/18/23 18:43 IMPRESSION: undefined ADDENDUM: 02/18/231948 IMPRESSION: undefined Assessment & Plan Assessment/Plan (1) Acute stroke due to ischemia: PLAN: Plan 1. Acute ischemic stroke-exact location unknown at this time, patient was a stroke team patient in the emergency room and given tenecteplase, after arrival to the ICU she began having left-sided neglect, repeat head CT was performed which was concerning for a right temporal lobe acute subarachnoid hemorrhage. I talked with [facility] neurosurgery and it was their opinion that there is no reversal agent to give for the patient and that she should be transferred to [facility], at the time of this dictation, we are awaiting transfer to [facility] for further care #2 acute subarachnoid hemorrhage right temporal lobe-treatment as above #3 hyperlipidemia Total clinical time spent addressing patient's medical issues, reviewing all her data, and collaborating with patient's care team: 75 minutes Charges/Coding Visit Charges Inpatient E&M: 96101 Init Hosp L3
[2023-02-18] MEDS: Labetalol (Prefilled) 20 MG/4 ML IV (20:24)
[2023-02-18] MEDS: Nicardipine HCl-0.9% Sod Chlor 20 MG/200 ML IV.SOLN 50 MG CONT INF (21:08)
[2023-02-18] MEDS: Ondansetron 4 MG/2 ML Vial IV (21:11)
[2023-02-18] MEDS: TITRATION PARAMETER CHANGE 1 EACH IV (21:25)
--- NOTE | 2023-02-18 21:25 | NURSING ---
Report given to [facility] RN.
--- NOTE | 2023-02-19 08:26 | DS.PCM_ITS ---
Providers Date of Admission: 02/18/23 Date of Discharge: 02/18/23 Primary Care Physician: Dr. Allyson Miller MD Consultations 02/18/23 16:22 Consult: Engineering Technical Writer / Pulmonary Medicine Routine Consulting Provider: Pulmonary Medicine [facility] Reason for Consult: stroke for thrombolytic administration EMERGENT Consult: Yes Notified: Yes Date Notified: 02/18/23 Time Notified: 19:00 Method of Notification: Text Comments:: Consult may be done in ED or ICU 02/18/23 18:48 Consult: Engineering Technical Writer / Pulmonary Medicine Routine Consulting Provider: Pulmonary Medicine [facility] Reason for Consult: stroke for thrombolytic EMERGENT Consult: Yes Notified: Yes Date Notified: 02/18/23 Time Notified: 17:59 Method of Notification: Verbal Reason For Visit: ACUTE ISCHEMIC STROKE Diagnosis Discharge Diagnosis (1) Acute stroke due to ischemia: Status: Acute Code(s): I63.9 - Cerebral infarction, unspecified Plan 1. Acute ischemic stroke-exact location unknown at this time, patient was a stroke team patient in the emergency room and given tenecteplase, after arrival to the ICU she began having left-sided neglect, repeat head CT was performed which was concerning for a right temporal lobe acute subarachnoid hemorrhage. I talked with [facility] neurosurgery and it was their opinion that there is no reversal agent to give for the patient and that she should be transferred to [facility], at the time of this dictation, we are awaiting transfer to [facility] for further care #2 acute subarachnoid hemorrhage right temporal lobe-treatment as above #3 hyperlipidemia Total clinical time spent addressing patient's medical issues, reviewing all her data, and collaborating with patient's care team: 75 minutes Medications at Discharge Home Medications tolterodine 4 mg capsule,extended release 24 hr (Detrol LA) 4 mg PO DAILY 01/15/17 aspirin 81 mg chewable tablet 81 mg PO DAILY@0800 ##30 07/20/19 atorvastatin 40 mg tablet 20 mg PO QHS 12/06/20 calcium polycarbophil 625 mg tablet 625 mg PO DAILY 12/06/20 Vitamin D3 5,000 iu PO DAILY 12/10/20 Hospital Course Operations None Procedures None Summary of Care Provided Minutes Spent on Discharge: 31 Hospital Course: This 82-year-old white female was seen in the emergency room at [facility] as a stroke alert, she awoke from taking a nap on 02/18/2023 and had garbled speech and was brought in for evaluation. 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 CT of the brain showed no evidence of hemorrhage or stroke. [facility] teleneurology was contacted and advised admini stration of tenecteplase, this was discussed by the ER doctor with the and he consented to the administration. Patient was then admitted to ICU for further care, in ICU, she exhibited some left-sided neglect and increased dysarthria, this appeared to signify worsening symptoms of stroke and perhaps a bleed, she then underwent an emergent CT of the brain which showed a right acute subarachnoid hemorrhage in the temporal area. I contacted [facility] and talk to a neurosurgeon who recommended transfer to their facility. Was not recommended to administer any reversal agent-I was told that this would not have any effect on the outcome of the patient. I talked to the patient's and notified him that the patient was going to be transferred. On 02/18/2023, patient was seen and examined: On examination she appeared alert, she was not lethargic or somnolent, she does not appear to be in any distress. Vital signs as documented. Skin warm and dry and without overt rashes. Neck without JVD, thyroid appears normal, trachea is midline, neck is supple. Lungs clear, normal air movement was noted. Heart exam notable for regular rhythm, normal sounds and absence of murmurs, rubs or gallops. Abdomen unremarkable and without evidence of organomegaly, masses, or abdominal aortic enlargement, bowel sounds are present in all 4 quadrants, no abdominal tenderness was noted. Extremities nonedematous, no cyanosis was noted, no clubbing was noted. Neuro: Cranial nerves II through XII are grossly intact, I did not detect any focal neurological deficits, patient did have marked dysarthria. Psych: Patient is alert and oriented x3, she does not appear anxious or depressed, she does not appear agitated. Patient was transferred to [facility] on 02/18/2023 in stable condition. Weight / BMI Weight Weight: 56.019 kg Body Mass Index (BMI) 24.2 ABG / Lab / Microbiology Data Result Diagrams: 02/18/23 15:50 02/18/23 15:50 Laboratory: Laboratory Results - last 24 hr 02/18/23 15:50: WBC 8.9, RBC 4.50, Hgb 13.2, Hct 41.5, MCV 92.2, MCH 29.3, MCHC 31.8 L, RDW Std Deviation 46.1 H, RDW Coeff of [place] 13.6, Plt Count 308, MPV 9.0, Immature Gran % (Auto) 0.300, Neut % (Auto) 59.3, Lymph % (Auto) 28.7, [place] % (Auto) 6.6, Eos % (Auto) 4.3, Baso % (Auto) 0.8, Absolute Neuts (auto) 5.3, Absolute Lymphs (auto) 2.57, Nucleated RBC % 0 02/18/23 15:50: PT 12.9, INR 1.0, APTT 27.3 02/18/23 15:50: Sodium 139, Potassium 3.5, Chloride 104, Carbon Dioxide 27.0, Anion Gap 8, BUN 17, Creatinine 0.72, Estim Creat Clear Calc 30.62, Est GFR (MDRD) Af Amer 100, Est GFR (MDRD) Non-Af 83, BUN/Creatinine Ratio 23.7 H, Glucose 174 H, Calcium 9.4, Troponin I High Sens 4 02/18/23 16:02: POC Glucose 142 H Radiography Diagnostic Testing: Radiology Impression Brain CT 02/18/23 15:48 IMPRESSION: undefined ADDENDUM: 02/18/23 163 IMPRESSION: undefined Head/Neck CTA 02/18/23 15:49 IMPRESSION: undefined ADDENDUM: 02/18/23 1631 IMPRESSION: undefined Brain CT 02/18/23 17:34 IMPRESSION: undefined Chest X-Ray 02/18/23 18:16 IMPRESSION: Mild bibasilar atelectasis. Electronically Signed: Juan Orlando MD at 18:53 EDT , Brain CT 02/18/23 18:43 IMPRESSION: undefined ADDENDUM: 02/18/23 194 IMPRESSION: undefined Meaningful Use Info Meaningful Use Diagnoses (Choose all that apply): Ischemic CVA CVA Therapy Assessed for PT,OT and/or ST?: No Reason therapy not assessed?: Patient Refused (Patient was transferred emergently to [facility] for further care) Ischemic Stroke Antithrombotic order at d/c?: No Reason antithrombotic not ordered: Treatment not Indicated (Patient was transferred to [facility] for further care) Dx of Atrial fib/flutter?: No Statins at discharge?: No Reason Statin not ordered: Treatment not Indicated (Patient transferred to [facility] for further care) Primary Dx Acute Ischemic CVA?: Yes Discharge Plan Admission Admit Date/Time: 02/18/23 16:45 Primary Reason for Your Visit: Acute stroke Attending Provider: Aristeo Bey Primary Care Provider: Allyson Miller Consulting Providers: Manuel Baker ; Hari Conrad ; Carlos Bianchi ; Jimmy Hanson ; Daija Hernández POLICE ACADEMY PROGRAM COORDINATOR Discharge Orders/Prescriptions Prescriptions: No Action tolterodine [Detrol LA] 4 MG capsule,extended release 24hr 4 mg PO DAILY aspirin 81 MG tablet,chewable 81 mg PO DAILY@0800 Qty: 30 0RF calcium polycarbophil 625 MG tablet 625 mg PO DAILY atorvastatin 40 MG tablet 20 mg PO QHS Vitamin D3 5,000 iu PO DAILY Referrals / Follow Up: Allyson Miller MD [Primary Care Provider] - Disposition Disposition (needs filled in before D/C Order can be placed): Acute Care Hospital Charges/Coding Visit Charges Inpatient E&M: 16787 Disch Hosp >30min
== END 2023-02-18 21:45 | disposition short-term general hospital (02) | DRG 64 ==
LOC: ED 17:03 → ICU 17:17
PROVIDERS: Admitting Provider Internal Medicine; Emergency Provider Emergency Medicine; PCP Family Medicine; Visit Provider Internal Medicine
DX: I63.9 Cerebral infarction, unspecified (principal); I60.9 Nontraumatic subarachnoid hemorrhage, unspecified; E78.5 Hyperlipidemia, unspecified; I67.1 Cerebral aneurysm, nonruptured; R03.0 Elevated blood-pressure reading, without diagnosis of hypertension; Z79.82 Long term (current) use of aspirin
CPT/HCPCS: 51702; 70450; 70496; 70498; 71045; 80048; 82962; 84484; 85025; 85610; 85730; 93005; 99285; J3101; J7030; Q9967; A4216; J2405; J3490

== ENCOUNTER 2023-07-03 18:17 | Emergency (ER) | payer MEDICARE, SELFPAY ==
[2023-07-03 18:19] VITALS: BP 130/111; PULSE 87; RESP 17; TEMP 36.2; O2SAT 99; BMI 23.6
--- NOTE | 2023-07-03 18:28 | EX.ED.DYSGE1 ---
HPI History of Present Illness Chief Complaint: Other, Pain/Inj Detail of Chief Complaint: Electrical shock sensation third division trigeminal nerve left side Informant: patient and spouse/S.O. Onset/Context/Timing Onset: Hours (1300) Context: Sudden Onset Timing: Intermittent Quality: Electrical shock Location: Third division trigeminal nerve Current Severity: Gone Maximum Severity: Severe Worsened by: Nothing Relieved by: Nothing Associated Symptoms Associated Symptoms: Facial twitch Narrative Narrative: Patient is a 83-year-old woman with history of hypertension, hypercholesterolemia, CVA with dysarthria who has a loop recorder in place. She presents because of electrical shock on the left side third division of the trigeminal nerve. This occurs every 10 to 15 seconds. Patient is uncertain whether there is a trigger point. She denies dental pain. She denies ear pain. She has no other complaints. Prior similar symptoms: No Recent Illness/Hospitalization: No [facility] Medical History Brain aneurysm Hyperlipemia Home Medications tolterodine 4 mg capsule,extended release 24 hr (Detrol LA) 4 mg PO DAILY 01/15/17 [History Last Taken 07/18/19] aspirin 81 mg chewable tablet 81 mg PO DAILY@0800 ##30 07/20/19 [Rx Last Taken Unknown] atorvastatin 40 mg tablet 20 mg PO QHS 12/06/20 [History Last Taken Unknown] calcium polycarbophil 625 mg tablet 625 mg PO DAILY 12/06/20 [History Last Taken Unknown] Vitamin D3 5,000 iu PO DAILY 12/10/20 [History Last Taken Unknown] atorvastatin 20 mg tablet 40 mg PO DAILY 07/03/23 [History Last Taken Unknown] carbamazepine 200 mg tablet (Tegretol) 200 mg PO BID #90 tabs 07/03/23 [Rx Last Taken Unknown] Allergy/AdvReac Type Severity Reaction Status Date / Time bee venom protein (honey bee) Allergy Anaphylaxis Verified 07/03/23 18:18 venom-wasp Allergy Anaphylaxis Verified 07/03/23 18:18 Family History Other Cancer Surgical History H/O: hysterectomy Social History (Updated 07/03/23 @ 18:[address] Papa Hernández MD) household members: spouse Smoking Status: Never smoker ROS ROS ED Constitutional Constitutional ED: Denies chills, fever(s), subjective, sweats or weight loss Eyes Eyes: Reports other Details: There is no history of glaucoma. ; Denies blurry vision, change in vision or diplopia ENT ENT ED: Reports other Details: Patient is unaware of any lesions in her ear. ; Denies ear pain, rhinorrhea or sore throat Cardiovascular Cardiovascular: Denies chest pain or palpitations Respiratory/Chest Respiratory/Chest: Denies cough, dyspnea or dyspnea on exertion Gastrointestinal Gastrointestinal: Denies nausea or vomiting Integumentary Denies rash Neurologic Neurologic: Denies headache(s) Hematologic/Lymphatic Hematologic/Lymphatic: Reports systems reviewed and no addt'l complaints, except as documented Allergic/Immunologic Allergic/Immunologic ED: Denies mouth swelling, tongue swelling or urticaria EXAM Physical Exam Const Vital Signs: 07/03/23 18:19 07/03/23 18:25 Temperature 97.2 F L Temperature Source Temporal Pulse Rate 87 Respiratory Rate 17 Respiratory Pattern Normal Blood Pressure 130/111 H Blood Pressure Mean 117 Pulse Ox 99 Oxygen Delivery Method Room Air Positive well nourished and well developed Constitutional Narrative: Patient intermittently will grimace because of pain left side of her face. General Appearance ED: well developed; Negative for pallor HEENT Reports moist mucous membranes HEENT Narrative: No dental pathology. No lesions in the external auditory canal on the left to suggest herpetic infection i.e. Mary Beth Dickson syndrome. There is no pain with chewing. Eyes PERRL and EOMs intact bilaterally General Eye ED: Negative for pale conjunctiva or scleral icterus Neck no lymphadenopathy, supple and no JVD Neck Narrative: There is no current bruit. Resp normal respiratory effort Cardio regular rate, regular rhythm, S1 normal heart sound, S2 normal heart sound and no murmurs Neuro oriented x3, CN's II-XII intact bilaterally and no sensory deficits noted Neuro Narrative: There is a trigger point near the TMJ joint on the left. 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 There is no concern for Howard's palsy, [place] Dickson syndrome Lyme disease etc. Treatment and Re-Evaluation :: Patient was started on Tegretol. She is to follow-up with Dr. Tammy Burkett. Discharge Plan Triage Chief Complaint: Other, Pain/Inj ED Provider: Papa Hernández Dx/Rx/DC Orders Clinical Impression: Tic douloureux Instructions: ED Trigeminal Neuralgia Prescriptions: New carbamazepine [Tegretol] 200 mg tablet 200 mg PO BID Qty: 90 0RF Rx Instructions: 1 twice a day for 3 days, increase to 1 3 times a day for the 3 days then increase to 2 tablets 3 times a day No Action tolterodine [Detrol LA] 4 MG capsule,extended release 24hr 4 mg PO DAILY aspirin 81 MG tablet,chewable 81 mg PO DAILY@0800 Qty: 30 0RF calcium polycarbophil 625 MG tablet 625 mg PO DAILY atorvastatin 40 MG tablet 20 mg PO QHS Vitamin D3 5,000 iu PO DAILY atorvastatin 20 mg tablet 40 mg PO DAILY Patient Comments: 1 TABLET BY MOUTH DAILY FOR STROKE PREVENTION/CHOLESTEROL Primary Care Provider: Allyson Miller Referrals: Allyson Miller MD [Primary Care Provider] - 5-7 Days Activity Restrictions/Additional Instructions: Contact Dr. Clemens's office to have Tegretol blood draw in 5 to 7 days. Medication may take 1 to 2 weeks to totally alleviate your pain. Disposition Disposition: Home, Self Care
[2023-07-03] MEDS: carBAMazepine 200 MG Tablet PO (18:36)
== END 2023-07-03 19:11 | disposition home or self-care (01) ==
PROVIDERS: Emergency Provider Emergency Medicine; PCP Family Medicine; Visit Provider Emergency Medicine
DX: G50.0 Trigeminal neuralgia (principal); I10 Essential (primary) hypertension; E78.00 Pure hypercholesterolemia, unspecified; Z86.73 Personal history of transient ischemic attack (TIA), and cerebral infarction without residual deficits; Z79.899 Other long term (current) drug therapy; Z79.82 Long term (current) use of aspirin; Z90.710 Acquired absence of both cervix and uterus
CPT/HCPCS: 99283

== ENCOUNTER 2023-07-06 17:26 | Emergency (ER) | payer MEDICARE, SELFPAY ==
[2023-07-06 17:32] VITALS: BP 136/71; PULSE 84; RESP 14; TEMP 35.7; O2SAT 96
[2023-07-06 18:42] VITALS: BMI 24.2
--- NOTE | 2023-07-06 18:58 | CT_ITS ---
STUDY: CT BRAIN WITHOUT CONTRAST REASON FOR EXAM: Female, 83 years old. Confusion RADIATION DOSAGE (If Supplied By Facility): CTDIvol = ( 44.99 ) mGy, DLP = ( 796.11 ) mGycm TECHNIQUE: Transaxial CT imaging of the brain was performed without administration of intravenous contrast material. Individualized dose optimization techniques were used for this CT. COMPARISON: February 18, 2023 FINDINGS: Normal soft tissue structures. Normal calvarium. Prominent ventricles and extra-axial spaces with mild atrophy. Bilateral white matter microangiopathic ischemic changes of the cerebral hemispheres. Normal basal ganglia and thalami. Normal brainstem. Normal cerebellum. There is no intracranial hemorrhage. There are no findings of an acute ischemic infarction. Normal visualized paranasal sinuses. CT/Brain/Head without Contrast IMPRESSION: No acute intracranial pathology of the brain. Electronically Signed: Charlie Valdez DO at 20:28 EDT ,
--- NOTE | 2023-07-06 18:58 | EKG12_ITS ---
Test Reason : CONFUSION Blood Pressure : / mmHG Vent. Rate : 080 BPM Atrial Rate : 080 BPM P-R Int : 200 ms QRS Dur : 064 ms QT Int : 398 ms P-R-T Axes : 054 008 055 degrees QTc Int : 459 ms Normal sinus rhythm Normal ECG No previous ECGs available Confirmed by JANAK CABRAL ([id number]), managing editor CURTIS CURTIS ([id number]) on 07/13/2023 1:48:34 PM Referred By: PEDRO Confirmed By:JANAK CABRAL
--- NOTE | 2023-07-06 19:00 | EDS_ITS ---
HPI History of Present Illness Chief Complaint: Weakness Informant: patient and spouse/S.O. Narrative Narrative: 83-year-old female who was seen here couple days ago for sharp pains in her left lower jaw, was diagnosed with tic douloureux and prescribed carbamazepine which she has been taking for 2 and half days now. After each dose, she has been having nausea and vomiting, and as a result of that she has been feeling poorly and weak, and has been states she has had episodes of confusion. Patient states that the medication has helped the sharp pains and those are definitely improved, she has had some minor episodes yesterday and today but no other new symptoms. He does state that she has had episodes of confusion that are more like memory issues, but at 1 point she took somebody else's keys and swore they were hers and her needed to intervene. Furthermore he states since her stroke in January, she has had memory issues. [facility] Medical History Brain aneurysm Hyperlipemia Home Medications tolterodine 4 mg capsule,extended release 24 hr (Detrol LA) 4 mg PO DAILY 01/15/17 [History Last Taken 07/18/19] aspirin 81 mg chewable tablet 81 mg PO DAILY@0800 ##30 07/20/19 [Rx Last Taken Unknown] atorvastatin 40 mg tablet 20 mg PO QHS 12/06/20 [History Last Taken Unknown] calcium polycarbophil 625 mg tablet 625 mg PO DAILY 12/06/20 [History Last Taken Unknown] Vitamin D3 5,000 iu PO DAILY 12/10/20 [History Last Taken Unknown] atorvastatin 20 mg tablet 40 mg PO DAILY 07/03/23 [History Last Taken Unknown] ondansetron 4 mg disintegrating tablet 8 mg (2 x 4 mg) PO Q8H PRN PRN Nausea #20 tabs 07/06/23 [Rx Last Taken Unknown] Allergy/AdvReac Type Severity Reaction Status Date / Time bee venom protein (honey bee) Allergy Anaphylaxis Verified 07/06/23 17:31 venom-wasp Allergy Anaphylaxis Verified 07/06/23 17:31 Family History Other Cancer Surgical History H/O: hysterectomy Social History household members: spouse Smoking Status: Never smoker ROS ROS ED Constitutional Constitutional ED: Reports weakness; Denies chills or fever(s) Eyes Eyes: Denies change in vision or diplopia ENT ENT ED: Reports as per HPI and facial pain; Denies ear pain, rhinorrhea or sore throat Cardiovascular Cardiovascular: Denies chest pain or palpitations Respiratory/Chest Respiratory/Chest: Denies cough or dyspnea Gastrointestinal Gastrointestinal: Reports nausea and vomiting; Denies abdominal pain or diarrhea Genitourinary Genitourinary ED: Denies dysuria or hematuria Musculoskeletal Musculoskeletal: Denies back pain or neck pain Integumentary Denies abscess or rash Neurologic Neurologic: Denies headache(s), paresthesias or weakness Psychiatric Psychiatric: Denies anxiety or suicidal thoughts EXAM Physical Exam Const Vital Signs: 07/06/23 17:32 07/06/23 18:42 Temperature 96.2 F L Temperature Source Temporal Pulse Rate 84 Respiratory Rate 14 Respiratory Pattern Normal Blood Pressure 136/71 H Blood Pressure Mean 92 Pulse Ox 96 Oxygen Delivery Method Room Air Positive well nourished and well developed General Appearance ED: well developed and NAD HEENT Reports moist mucous membranes normocephalic and atraumatic Eyes PERRL and EOMs intact bilaterally Neck full ROM and supple Chest Wall inspection of chest normal and palpation of chest normal Resp normal respiratory effort and clear to auscultation bilaterally Cardio regular rate, regular rhythm and no murmurs Rate: Negative for tachycardic GI non-tender and non-distended Auscultation: normoactive bowel sounds Palpation: soft Back/Spine no CVA tenderness General Back: other FROM Extremity normal to inspection General Extremety ED: Negative for edema, pulses abnormal or tenderness General Extremity: Negative for edema or pulses abnormal Neuro CN's II-XII intact bilaterally and no sensory deficits noted Neuro Narrative: Orientation impaired with regards to the month but she is redirectable and only 1 month off. Sensorium / Orientation: awake and alert Motor Exam: strength 5/5 throughout Psych mental status grossly normal Skin no rashes or lesions noted and no wounds MDM MDM MDM Narrative Medical decision making narrative: My suspicion is that this patient is having memory issues due to her stroke in January, and is feeling poorly and having vomiting/nausea because of the new medication, which seems to be helping her symptoms that I agree are consistent with trigeminal neuralgia. The states he basically brought her because he wanted to make sure that it was safe to discontinue that medication because they were prescribed a 45-day supply. I concur that it is safe to discontinue it, because it does sound like this is causing her symptoms and probably her fatigue but given her vague symptoms and age, I recommended doing other testing to rule out other organic disease, they were in agreement with this. The EKG is normal, the troponin is normal, her urine does not show infection, and her labs are unremarkable. CT head images were reviewed, I also reviewed the interpretation which I agree with, negative for any acute, just age-related chronic changes. Reassured, I am comfortable discharging her home and instructed to discontinue the carbamazepine until she follows up with her doctor. Also prescribing her some Zofran, which helped here in the emergency department along with some IV fluids. They are both comfortable with that plan. History & Record Review Additional record(s) reviewed:: Prior ED visit and Prior labs Lab Data Attestation: I reviewed the patient's lab results. Labs: Laboratory Results - last 24 hr 07/06/23 07/06/23 19:07 20:05 WBC 10.4 RBC 4.65 Hgb 13.4 Hct 41.0 MCV 88.2 MCH 28.8 MCHC 32.7 RDW Std Deviation 43.2 RDW Coeff of [place] 13.4 Plt Count 298 MPV 8.9 Immature Gran % (Auto) 0.400 Neut % (Auto) 83.2 H Lymph % (Auto) 10.4 L [place] % (Auto) 5.0 Eos % (Auto) 0.6 Baso % (Auto) 0.4 Absolute Neuts (auto) 8.7 H Absolute Lymphs (auto) 1.09 Nucleated RBC % 0 Sodium 133 L Potassium 3.9 Chloride 97 L Carbon Dioxide 29.0 Anion Gap 7 BUN 11 Creatinine 0.61 Estim Creat Clear Calc 31.60 Est GFR (MDRD) Af Amer 120 Est GFR (MDRD) Non-Af 99 BUN/Creatinine Ratio 17.9 Glucose 149 H Calcium 9.1 Troponin I High Sens 4 Urine Color Yellow Urine Clarity Clear Urine pH 6.0 Ur Specific [place] 1.020 Urine Protein 15 H Urine Glucose (UA) Normal Urine Ketones 150 A* Urine Occult Blood 25 H Urine Nitrite Negative Urine Bilirubin Negative Urine Urobilinogen Normal Ur Leukocyte Esterase 25 H Urine RBC 0 SEEN Urine WBC 0-5 SEEN Ur Squamous Epith Cells 0-5 SEEN Urine Bacteria 0 SEEN Urine Mucus 0 SEEN Radiography Diagnostic Testing: Clinical Impression(s) from Imaging Studies Brain CT 07/06/23 18:58 IMPRESSION: No acute intracranial pathology of the brain. Electronically Signed: Charlie Valdez DO at 20:28 EDT Reading Location ID and State: [facility] / [place] Tel [phone], Service support , Rhythm Strip Rhythm Strip: Sinus Rhythm Rate: 85 Ectopy: None EKG Initial EKG: Attestation: I personally reviewed and interpreted this EKG as follows: Interpretation: Sinus Rhythm and No Acute Injury Pattern Comments: Normal EKG Discharge Plan Triage Chief Complaint: Weakness ED Provider: Ricco Rutledge Dx/Rx/DC Orders Clinical Impression: Acute gastritis without bleeding Instructions: ED Gastritis (Adult) Prescriptions: New ondansetron [ondansetron] 4 mg tablet,disintegrating 8 mg PO Q8H PRN PRN (Reason: Nausea) Qty: 20 0RF Continued tolterodine [Detrol LA] 4 MG capsule,extended release 24hr 4 mg PO DAILY aspirin 81 MG tablet,chewable 81 mg PO DAILY@0800 Qty: 30 0RF calcium polycarbophil 625 MG tablet 625 mg PO DAILY atorvastatin 40 MG tablet 20 mg PO QHS Vitamin D3 5,000 iu PO DAILY atorvastatin 20 mg tablet 40 mg PO DAILY Patient Comments: 1 TABLET BY MOUTH DAILY FOR STROKE PREVENTION/CHOLESTEROL Discontinued carbamazepine [Tegretol] 200 mg tablet 200 mg PO BID Qty: 90 0RF Rx Instructions: 1 twice a day for 3 days, increase to 1 3 times a day for the 3 days then increase to 2 tablets 3 times a day Primary Care Provider: Allyson Miller Referrals: Allyson Miller MD [Primary Care Provider] - As soon as possible Disposition Disposition: Home, Self Care
[2023-07-06 19:17] LABS: Absolute Lymphocyte Count 1.09 X10^3/uL (0.83-4.51); Absolute Neutrophil Count 8.7 X10^3/uL (2.0-7.7); Basophil# 0.04 X10^3/uL; Basophil% 0.4 % (0-1); Eosinophil# 0.06 X10^3/uL; Eosinophils% 0.6 % (0-5); Hemoglobin 13.4 g/dL (12.0-15.0); Lymphocyte # 1.09 X10^3/ul (0.83-4.51); Lymphocyte % 10.4 % (19-41); Mean Corp Hgb Conc 32.7 g/dL (32-36); Mean Corpuscular Hgb 28.8 pg (27.0-32.0); Mean Corpuscular Volume 88.2 fL (81-99); Mean Platelet Vol. 8.9 fl (6.2-12.0); Monocyte# 0.52 X10^3/uL; NRBC Flagged by Analyzer 0 % (0-5); Neutrophil # 8.69 X10^3/uL (2.7-7.7); Neutrophil % 83.2 % (47-70); Platelet Count 298 K/mm3 (150-450); RBC Distribution Width CV 13.4 % (11.6-14.6); RBC Distribution Width SD 43.2 fl (35.1-43.9); Red Blood Count 4.65 M/mm3 (4.2-5.4); White Blood Count 10.4 K/mm3 (4.4-11.0)
[2023-07-06] MEDS: Ondansetron 4 MG/2 ML Vial IV (19:29)
[2023-07-06 19:35] LABS: Anion Gap 7 (5-15); BUN 11 mg/dL (7-18); BUN/Creat Ratio 17.9 RATIO (10-20); Calcium,Total 9.1 mg/dL (8.5-10.1); Chloride 97 mmol/L (98-107); Creatinine, Serum 0.61 mg/dL (0.55-1.02); EST Glomerular Filtration Rate 99 mL/min (>60); Est Glom Filt Rate - Afr Amer 120 mL/min (>60); Glucose 149 mg/dL (74-106); Potassium 3.9 mmol/L (3.5-5.1); Sodium Level 133 mmol/L (136-145); Troponin-I HS 4 pg/mL (3.0-54.0)
[2023-07-06 20:14] LABS: Bacteria 0 SEEN /hpf (None Seen); Mucous, Urine 0 SEEN /hpf (<or=2+); Red Blood Cells-Urine 0 SEEN /hpf (0-5)
[2023-07-06 20:15] LABS: Color, Urine Yellow (Yellow); Glucose, Dipstick Normal (Normal); Leukocyte Esterase-Dipstick 25 /ul (Negative); Nitrite-Dipstick Negative (Negative); Occult Blood-Urine 25 /ul (Negative); Protein-Dipstick 15 mg/dl (Negative); Urine Bilirubin Dipstick Negative (Negative); Urine Clarity Clear (Clear); Urine Urobilinogen Normal (Normal)
[2023-07-06 20:16] LABS: Ketone-Dipstick 150 mg/dl (Negative)
[2023-07-06 20:23] LABS: Squamous Epithelial Cells - UA 0-5 SEEN /hpf (5-10); White Blood Cells 0-5 SEEN /hpf (0-5)
== END 2023-07-06 21:43 | disposition home or self-care (01) ==
PROVIDERS: Emergency Provider Emergency Medicine; PCP Family Medicine; Visit Provider Emergency Medicine
DX: K29.00 Acute gastritis without bleeding (principal); E78.5 Hyperlipidemia, unspecified
CPT/HCPCS: 70450; 80048; 81001; 84484; 85025; 93005; 96361; 96374; 99283; J7040; A4216; J2405

== ENCOUNTER 2023-07-31 12:02 | Emergency (ER) | payer MEDICARE, SELFPAY ==
[2023-07-31 12:03] VITALS: BP 141/73; PULSE 96; RESP 18; TEMP 35.4; O2SAT 100; BMI 23.8
--- NOTE | 2023-07-31 13:01 | CT_ITS ---
EXAM: CT ABDOMEN AND PELVIS WITH INTRAVENOUS CONTRAST CLINICAL INDICATION: LLQ pain with history of diverticulitis TECHNIQUE: Helically acquired images were obtained of the abdomen and pelvis with intravenous contrast. This CT exam was performed using one or more of the following dose reduction techniques: automated exposure control, adjustment of the mA and/or kV according to patient size, and/or use of iterative reconstruction technique. CONTRAST: IV 100mL Isovue-370 COMPARISON: No relevant prior studies available. FINDINGS: LOWER THORAX: Normal. Lung bases are clear. No cardiomegaly. No pericardial effusion. ABDOMEN: LIVER: Normal. Homogeneous. No focal mass. PANCREAS: Normal. No focal cystic or solid mass. SPLEEN: Normal. Normal size without focal cystic or solid mass. ADRENALS: Normal. No nodules. KIDNEYS AND URETERS: Normal. Normal renal size and position. No hydronephrosis. STOMACH AND BOWEL: Focal wall thickening of the proximal sigmoid colon noted associated with mild adjacent fat stranding consistent with acute diverticulitis. No evidence of abscess or perforation. PELVIS: APPENDIX: No evidence of acute appendicitis. BLADDER: Normal. REPRODUCTIVE: Uterus is absent. ABDOMEN and PELVIS: INTRAPERITONEAL SPACE: Normal. No ascites or other fluid collection. No free air. BONES/JOINTS: No suspicious lytic or blastic abnormality. SOFT TISSUES: Normal. No discrete abdominal or pelvic wall hernia. VASCULATURE: Normal. Abdominal aorta is non-dilated. LYMPH NODES: Normal. No enlarged lymph nodes. CT/Abdomen/Pelvis W IV Cont ONLY IMPRESSION: Acute sigmoid diverticulitis without evidence of abscess or perforation. Electronically Signed: Desean Gimenez MD at 14:44 EDT ,
--- NOTE | 2023-07-31 13:21 | EDS_ITS ---
<Statement entered by Inocencia Cage MD - 07/31/23 16:01> I have personally performed a face to face assessment of the patient and have reviewed the MARY Note. Patient presents with lower abdominal pain for the past 3 days. No fever or chills. She does have a history of diverticulitis but has not had a flare in quite some time. She is also concerned about possible appendicitis. Patient sitting upright in bed no acute distress. She is nontoxic-appearing. Head and neck examination unremarkable. Heart is regular rate and rhythm. Lung sounds are clear. Abdomen is soft with mild tenderness in the lower abdomen, worse on the left. No guarding or rebound. Active bowel sounds are noted. Lab work reveals normal white count. CT scan confirms diverticulitis without evidence of perforation or abscess. Patient be treated with a course of Augmentin. Return instructions provided HPI History of Present Illness Chief Complaint: Abd Pain Narrative Narrative: Patient is an 83-year-old female with history of stroke, TIA, hyperlipidemia who presents to the emergency department with left lower abdominal pain. Patient states for the last 3 days, her left lower quadrant of her abdomen has been more tender to the touch. She was unsure what was happening until she remembered that she had diverticulitis, last exacerbation was multiple years ago. Patient states she still has an appetite however the pain is getting worse and she is here for evaluation. She denies any rectal bleeding, significant nausea or vomiting. Denies any fever or chills. [facility] Medical History Brain aneurysm Hyperlipemia Home Medications tolterodine 4 mg capsule,extended release 24 hr (Detrol LA) 4 mg PO DAILY 01/15/17 [History Last Taken 07/18/19] aspirin 81 mg chewable tablet 81 mg PO DAILY@0800 ##30 07/20/19 [Rx Last Taken Unknown] atorvastatin 40 mg tablet 20 mg PO QHS 12/06/20 [History Last Taken Unknown] calcium polycarbophil 625 mg tablet 625 mg PO DAILY 12/06/20 [History Last Taken Unknown] Vitamin D3 5,000 iu PO DAILY 12/10/20 [History Last Taken Unknown] atorvastatin 20 mg tablet 40 mg PO DAILY 07/03/23 [History Last Taken Unknown] ondansetron 4 mg disintegrating tablet 8 mg (2 x 4 mg) PO Q8H PRN PRN Nausea #20 tabs 07/06/23 [Rx Last Taken Unknown] amoxicillin 875 mg-potassium clavulanate 125 mg tablet 1 tab PO BID #20 tabs 07/31/23 [Rx Last Taken Unknown] ondansetron 4 mg disintegrating tablet 4 mg PO Q8H PRN PRN Nausea #10 tabs 07/31/23 [Rx Last Taken Unknown] Allergy/AdvReac Type Severity Reaction Status Date / Time bee venom protein (honey bee) Allergy Anaphylaxis Verified 07/31/23 12:04 venom-wasp Allergy Anaphylaxis Verified 07/31/23 12:04 Family History Other Cancer Surgical History H/O: hysterectomy Social History household members: spouse Smoking Status: Never smoker ROS ROS ED ROS Narrative Constitutional: Negative for fever, chills, weight loss, weakness Eyes: Negative for vision loss, vision change, double vision ENT: Negative for any sore throat, ear pain, congestion Cardiovascular: Negative for any chest pain, tightness, palpitations Respiratory: Negative for any cough, sputum production, hemoptysis, dyspnea, dyspnea on exertion, orthopnea Gastrointestinal: Negative for any nausea, vomiting, diarrhea, constipation, blood in stool, blood in vomit. Positive left lower quadrant abdominal pain : Negative for any urinary frequency, dysuria, retention, blood in urine Muscle skeletal: Negative for any muscle joint pain, stiffness, myalgias, arthralgias, neck pain, back pain Neurological: Negative for any headache, syncope, numbness or tingling, dizziness Skin: Negative for any rashes, lumps, itching, abrasions, lacerations Psychiatric: Negative for any depression, anxiety, stress, suicidal ideation, homicidal ideation Hematologic: Negative for any easy bruising, excessive bruising, easy bleeding Allergies: Negative for any eczema, hives, rash EXAM Physical Exam Narrative Exam Narrative: Vital signs reviewed. HEET: Head normocephalic atraumatic, TMs clear bilaterally. Posterior pharynx is clear, moist mucous membranes. Nares clear bilaterally. Neck: Supple with no lymphadenopathy or tenderness. No signs of meningismus, negative jolt sign. Cardiac: Regular rate and rhythm no murmurs gallops or rubs, equal peripheral pulses bilaterally. Respiratory: Lungs clear to auscultation bilaterally. No chest tenderness. Abdomen: Soft, nondistended. No abdominal bruit or pulsatile masses. No hep atosplenomegaly. Active bowel sounds in all quadrants, positive for left lower quadrant abdominal pain. Worse on palpation. Negative for any peritoneal signs. Extremities: No peripheral edema, no signs of gross trauma or deformity. Active full range of motion of all extremities. Neuro: Cranial nerves II through XII intact, no focal neurological deficits. Skin: Clean dry and intact with no rash, purpura, petechiae, vesicles or pustules. Backs/flank: No CVA tenderness, no midline spinal tenderness, no deformity. Psych: Normal mood and affect. No SI, HI or acute psychosis. Const Vital Signs: 07/31/23 12:03 Temperature 95.7 F L Temperature Source Temporal Pulse Rate 96 Respiratory Rate 18 Blood Pressure 141/73 H Blood Pressure Mean 95 Pulse Ox 100 Oxygen Delivery Method Room Air [facility] Lab Data Labs: Laboratory Results - last 24 hr 07/31/23 13:24 WBC 10.0 RBC 4.37 Hgb 12.6 Hct 40.0 MCV 91.5 MCH 28.8 MCHC 31.5 L RDW Std Deviation 47.2 H RDW Coeff of [place] 14.0 Plt Count 303 MPV 9.2 Immature Gran % (Auto) 0.400 Neut % (Auto) 68.7 Lymph % (Auto) 16.9 L [place] % (Auto) 7.8 Eos % (Auto) 5.6 H Baso % (Auto) 0.6 Absolute Neuts (auto) 6.9 Absolute Lymphs (auto) 1.69 Nucleated RBC % 0 Sodium 139 Potassium 3.6 Chloride 105 Carbon Dioxide 30.0 Anion Gap 4 L BUN 10 Creatinine 0.88 Estim Creat Clear Calc 35.91 Est GFR (MDRD) Af Amer 78 Est GFR (MDRD) Non-Af 65 BUN/Creatinine Ratio 11.3 Glucose 100 Calcium 9.0 Total Bilirubin 0.50 AST 23 ALT 30 Alkaline Phosphatase 80 Total Protein 7.2 Albumin 3.6 Globulin 3.6 Albumin/Globulin Ratio 1.0 Lipase 24 Urine Color Yellow Urine Clarity Clear Urine pH 7.0 Ur Specific [place] 1.005 Urine Protein Negative Urine Glucose (UA) Normal Urine Ketones Negative Urine Occult Blood 10 H Urine Nitrite Negative Urine Bilirubin Negative Urine Urobilinogen Normal Ur Leukocyte Esterase 25 H Urine RBC 0-5 SEEN Urine WBC 0-5 SEEN Ur Squamous Epith Cells 0-5 SEEN Urine Bacteria 0 SEEN Urine Mucus 0 SEEN Radiography Diagnostic Testing: Clinical Impression(s) from Imaging Studies Abdomen/Pelvis CT 07/31/23 13:01 IMPRESSION: Acute sigmoid diverticulitis without evidence of abscess or perforation. Electronically Signed: Desean Gimenez MD at 14:44 EDT , Treatment and Re-Evaluation :: Patient appears generally well, patient appears nontoxic, vital signs are stable. Patient presents to the emergency department with left lower quadrant abdominal pain for last 3 days. Physical examination is concerning for acute diverticulitis, patient will receive some basic laboratory values concerning for any electrolyte abnormalities, leukocytosis. CT scan of the abdomen pelvis is concerning for any acute diverticulitis, abscess formation, fistula, obstruction. Patient laboratory values showed normal CBC, patient's chemistries were unremarkable. Urinalysis was negative for any infection. Patient CT scan of the abdomen pelvis showed acute sigmoid diverticulitis without evidence of abscess or perforation. This is consistent with the patient's physical examination. Patient was given Cipro, Flagyl. Patient replaced on these for 10 days. Patient was given return precautions. All questions answered, patient struck to not to drink alcohol in these medications. She also given presented for Zofran. Offered pain medicine however refused. Patient stable for discharge. Discharge Plan Triage Chief Complaint: Abd Pain ED Midlevel Provider: Yousif Franks ED Provider: Inocencia Cage Dx/Rx/DC Orders Clinical Impression: Diverticulitis of sigmoid colon Instructions: Diverticulitis Dc Prescriptions: New ondansetron 4 mg tablet,disintegrating 4 mg PO Q8H PRN PRN (Reason: Nausea) Qty: 10 0RF amoxicillin-pot clavulanate 875-125 mg tablet 1 tab PO BID Qty: 20 0RF No Action tolterodine [Detrol LA] 4 MG capsule,extended release 24hr 4 mg PO DAILY aspirin 81 MG tablet,chewable 81 mg PO DAILY@0800 Qty: 30 0RF calcium polycarbophil 625 MG tablet 625 mg PO DAILY atorvastatin 40 MG tablet 20 mg PO QHS Vitamin D3 5,000 iu PO DAILY ondansetron [ondansetron] 4 mg tablet,disintegrating 8 mg PO Q8H PRN PRN (Reason: Nausea) Qty: 20 0RF atorvastatin 20 mg tablet 40 mg PO DAILY Patient Comments: 1 TABLET BY MOUTH DAILY FOR STROKE PREVENTION/CHOLESTEROL Primary Care Provider: Allyson Miller Referrals: Allyson Miller MD [Primary Care Provider] - Activity Restrictions/Additional Instructions: Please follow-up with your PCP, do not drink alcohol while on these medications. Return for worsening pain. Disposition Disposition: Home, Self Care
[2023-07-31] MEDS: 0.9% Normal Saline (1000mL) 1,000 ML 1000 ML IV (13:23)
[2023-07-31 13:33] LABS: Bacteria 0 SEEN /hpf (None Seen); Mucous, Urine 0 SEEN /hpf (<or=2+)
[2023-07-31 13:36] LABS: Color, Urine Yellow (Yellow); Glucose, Dipstick Normal (Normal); Ketone-Dipstick Negative (Negative); Leukocyte Esterase-Dipstick 25 /ul (Negative); Nitrite-Dipstick Negative (Negative); Occult Blood-Urine 10 /ul (Negative); Protein-Dipstick Negative (Negative); Specific Gravity, Urine 1.005 (1.002-1.030); Urine Bilirubin Dipstick Negative (Negative); Urine Clarity Clear (Clear); Urine Urobilinogen Normal (Normal)
[2023-07-31 13:37] LABS: Absolute Lymphocyte Count 1.69 X10^3/uL (0.83-4.51); Absolute Neutrophil Count 6.9 X10^3/uL (2.0-7.7); Basophil# 0.06 X10^3/uL; Basophil% 0.6 % (0-1); Eosinophil# 0.56 X10^3/uL; Eosinophils% 5.6 % (0-5); Hemoglobin 12.6 g/dL (12.0-15.0); Lymphocyte # 1.69 X10^3/ul (0.83-4.51); Lymphocyte % 16.9 % (19-41); Mean Corp Hgb Conc 31.5 g/dL (32-36); Mean Corpuscular Hgb 28.8 pg (27.0-32.0); Mean Corpuscular Volume 91.5 fL (81-99); Mean Platelet Vol. 9.2 fl (6.2-12.0); Monocyte# 0.78 X10^3/uL; Monocyte% 7.8 % (0-10); NRBC Flagged by Analyzer 0 % (0-5); Neutrophil # 6.89 X10^3/uL (2.7-7.7); Neutrophil % 68.7 % (47-70); Platelet Count 303 K/mm3 (150-450); RBC Distribution Width SD 47.2 fl (35.1-43.9); Red Blood Count 4.37 M/mm3 (4.2-5.4)
[2023-07-31 13:56] LABS: AST(SGOT) 23 U/L (15-37); Alanine Aminotransfer ALT/SGPT 30 U/L (13-56); Albumin, Serum 3.6 g/dL (3.2-5.0); Alkaline Phosphatase 80 U/L (45-117); Anion Gap 4 (5-15); BUN 10 mg/dL (7-18); BUN/Creat Ratio 11.3 RATIO (10-20); Chloride 105 mmol/L (98-107); Creatinine, Serum 0.88 mg/dL (0.55-1.02); EST Glomerular Filtration Rate 65 mL/min (>60); Est Glom Filt Rate - Afr Amer 78 mL/min (>60); Estimated Creatinine Clearance 35.91 ml/min; Globulin 3.6 g/dL (2.2-4.2); Glucose 100 mg/dL (74-106); Lipase 24 U/L (13-75); Potassium 3.6 mmol/L (3.5-5.1); Protein, Total 7.2 g/dL (6.4-8.2); Sodium Level 139 mmol/L (136-145)
[2023-07-31 14:00] LABS: Red Blood Cells-Urine 0-5 SEEN /hpf (0-5); Squamous Epithelial Cells - UA 0-5 SEEN /hpf (5-10); White Blood Cells 0-5 SEEN /hpf (0-5)
[2023-07-31] MEDS: Amox/Clavulanate 875 MG Tablet PO (15:24)
[2023-07-31 15:25] VITALS: BP 147/77; PULSE 86; RESP 16; O2SAT 99
== END 2023-07-31 15:29 | disposition home or self-care (01) ==
PROVIDERS: Nurse Practitioner; Emergency Provider Emergency Medicine; PCP Family Medicine; Visit Provider Emergency Medicine
DX: K57.32 Diverticulitis of large intestine without perforation or abscess without bleeding (principal); E78.5 Hyperlipidemia, unspecified; Z86.73 Personal history of transient ischemic attack (TIA), and cerebral infarction without residual deficits; Z79.899 Other long term (current) drug therapy
CPT/HCPCS: 74177; 80053; 81001; 83690; 85025; 96360; 99282; J7030; Q9967; A4216

== ENCOUNTER 2023-10-23 09:56 | Emergency (ER) | payer MEDICARE, SELFPAY ==
[2023-10-23 09:57] VITALS: BP 138/77; PULSE 84; RESP 16; TEMP 36.6; O2SAT 97; BMI 23.2
--- NOTE | 2023-10-23 10:26 | CT_ITS ---
INDICATION: dizziness EXAMINATION: CT BRAIN - CT Head or Brain W/O Contrast Injection TECHNIQUE: Multiple axial images were obtained of the head without intravenous contrast. A radiation dose optimization technique was used for this scan. IV Contrast dosage and agent: None. RADIATION DOSAGE (If Supplied By Facility): CTDIvol = ( 44.99 ) mGy, DLP = ( 796.11 ) mGycm COMPARISON: Prior study dated: 07/06/2023. FINDINGS: BRAIN PARENCHYMA: No intra- or extra-axial hemorrhage. No evidence of acute infarct. No intracranial mass or mass effect. There is preservation of the pederson/white matter interface. Periventricular deep white matter changes likely due to chronic microvascular disease. Posterior fossa structures are unremarkable. CSF SPACES: Mild diffuse atrophy appropriate for patient''s age. No hydrocephalus. Basal cisterns are patent. CALVARIUM, SKULL BASE, PARANASAL SINUSES AND MASTOID AIR CELLS: Mild mucosal thickening of the left maxillary sinus. No discrete lytic or blastic abnormalities. ORBITS: Both globes, extraocular muscles, optic nerves and retrobulbar fat appear unremarkable. CT/Brain/Head without Contrast IMPRESSION: No acute intracranial process. Electronically Signed: Blayne Grimes MD at 11:08 EST ,
--- NOTE | 2023-10-23 10:27 | EKG12_ITS ---
Test Reason : DIZZINESS Blood Pressure : / mmHG Vent. Rate : 075 BPM Atrial Rate : 075 BPM P-R Int : 196 ms QRS Dur : 070 ms QT Int : 392 ms P-R-T Axes : 087 056 088 degrees QTc Int : 437 ms Sinus rhythm with Fusion complexes Otherwise normal ECG Confirmed by TRISTIN NICHOLAS, EFRAIN ([id number]), editor continuity and script CURTIS CURTIS ([id number]) on 10/25/2023 9:46:24 AM Referred By: Anatoly Arreola Confirmed By:EFRAIN CROW MD
--- NOTE | 2023-10-23 10:28 | EX.ED.DYSGE1 ---
HPI History of Present Illness Chief Complaint: Dizziness Narrative Narrative: 83-year-old female presenting with dizziness. She states that is lightheaded and sensation and does not feel like the room is spinning necessarily. She states she had difficulty ambulating but has not fallen. Patient concerned that she has history of ischemic stroke. Her symptoms at that time were to start this weekend. And abnormal speech. Patient states she was [facility] and to [facility] at that time. Patient states she is on aspirin but no other blood thinners. Patient states she has not any black or bloody stools. No fevers, chills, chest pain, palpitations, shortness of breath. Patient states she feels otherwise well. She has mild nausea associated dizziness. Patient does not have a headache, visual complaints, slurred speech. [facility] Medical History Brain aneurysm Hyperlipemia Home Medications tolterodine 4 mg capsule,extended release 24 hr (Detrol LA) 4 mg PO DAILY 01/15/17 [History Last Taken 07/18/19] aspirin 81 mg chewable tablet 81 mg PO DAILY@0800 ##30 07/20/19 [Rx Last Taken Unknown] atorvastatin 40 mg tablet 20 mg PO QHS 12/06/20 [History Last Taken Unknown] calcium polycarbophil 625 mg tablet 625 mg PO DAILY 12/06/20 [History Last Taken Unknown] Vitamin D3 5,000 iu PO DAILY 12/10/20 [History Last Taken Unknown] atorvastatin 20 mg tablet 40 mg PO DAILY 07/03/23 [History Last Taken Unknown] ondansetron 4 mg disintegrating tablet 8 mg (2 x 4 mg) PO Q8H PRN PRN Nausea #20 tabs 07/06/23 [Rx Last Taken Unknown] amoxicillin 875 mg-potassium clavulanate 125 mg tablet 1 tab PO BID #20 tabs 07/31/23 [Rx Last Taken Unknown] ondansetron 4 mg disintegrating tablet 4 mg PO Q8H PRN PRN Nausea #10 tabs 07/31/23 [Rx Last Taken Unknown] meclizine 25 mg tablet 25 mg PO TID PRN dizziness #30 tabs 10/23/23 [Rx Last Taken Unknown] Allergy/AdvReac Type Severity Reaction Status Date / Time bee venom protein (honey bee) Allergy Anaphylaxis Verified 09/09/23 12:04 venom-wasp Allergy Anaphylaxis Verified 07/31/23 12:04 Family History Other Cancer Surgical History H/O: hysterectomy Social History household members: spouse Smoking Status: Never smoker ROS ROS ED Constitutional Constitutional ED: Denies chills, fever(s) or sweats Eyes Eyes: Denies blurry vision or change in vision ENT ENT ED: Denies ear pain or sore throat Cardiovascular Cardiovascular: Denies chest pain, palpitations or racing heartbeat Respiratory/Chest Respiratory/Chest: Denies cough, dyspnea or sputum Gastrointestinal Gastrointestinal: Denies abdominal pain, constipation, diarrhea, nausea or vomiting Genitourinary Genitourinary ED: Denies dysuria, hematuria or urinary frequency Musculoskeletal Musculoskeletal: Denies arthralgias, myalgias or neck pain Integumentary Denies abscess, Abrasions or rash Neurologic Neurologic: Denies headache(s), paresthesias or weakness Psychiatric Psychiatric: Denies anxiety, depression, suicidal ideation or suicidal thoughts Endocrine Endocrinology: Denies polydipsia or polyuria EXAM Physical Exam Const Vital Signs: 10/23/23 09:57 10/23/23 11:03 Temperature 97.9 F Temperature Source Temporal Pulse Rate 84 Pulse Rate [Lying] 78 Pulse Rate [Sitting (for 1 minute prior to obtaining)] 70 Respiratory Rate 16 Blood Pressure 138/77 H Blood Pressure [Lying] 133/70 H Blood Pressure [Sitting (for 1 minute prior to obtaining)] 167/64 H Blood Pressure [Standing (for 1 minute prior to obtaining)] 145/78 H Blood Pressure Mean 97 Blood Pressure Mean [Lying] 91 Blood Pressure Mean [Sitting (for 1 minute prior to obtaining)] 98 Blood Pressure Mean [Standing (for 1 minute prior to obtaining)] 100 Pulse Ox 97 Oxygen Delivery Method Room Air Positive well nourished General Appearance ED: NAD; Negative for pallor HEENT Reports moist mucous membranes HEENT Narrative: Positive Starr-Hallpike with nystagmus noted. Eyes PERRL and EOMs intact bilaterally Neck no lymphadenopathy Chest Wall inspection of chest normal Resp normal respiratory effort and clear to auscultation bilaterally Auscultation: Negative for rales, rhonchi or wheezes Cardio regular rate and regular rhythm GI normal to inspection, nondistended, normoactive bowel sounds Neuro oriented x3 and CN's II-XII intact bilaterally Sensorium / Orientation: alert Motor Exam: strength 5/5 throughout Psych mental status grossly normal Skin no rashes or lesions noted and no wounds General Skin Exam: Negative for jaundice or pallor MDM MDM MDM Narrative Medical decision making narrative: 83-year-old female with dizziness. She states it feels like lightheadedness and not vertiginous in nature. She does have a positive Hallpike on exam. Patient treated meclizine and Phenergan. Patient concerned that she has history of stroke. Patient states this was ischemic stroke. She is on aspirin. Denies any trauma. No focal neurologic deficits or lateralizing signs or symptoms on exam. CT brain and will be obtained to assess for intracranial hemorrhage/stroke. CBC to assess for white blood cell count, hemoglobin, platelets. BMP to assess renal function electrolytes. High-sensitivity troponin EKG to assess for ischemia or dysrhythmia. This will assess urinalysis to ensure shows no UTI. Chest x-ray to rule out pneumonia. CBC and BMP unremarkable. High-sensitivity troponin is 4. EKG on my interpretation shows a normal sinus rhythm with ventricular to 75 bpm without ischemic change or ectopy. Chest x-ray by interpretation shows no acute process. The radiologist has not interpreted this however. Orthostatic vital signs were normal. CT the brain negative. Urinalysis is negative for infection. Given that her imaging is negative and her blood work is normal and she is feeling better after treatment with meclizine and Phenergan. I believe this is likely benign positional vertigo. She will be given a prescription for meclizine. She is given follow-up with ENT.. Impression: 1. Benign positional vertigo 2. Nausea 3. History of stroke Lab Data Labs: Laboratory Results - last 24 hr 10/23/23 10/23/23 10:17 11:15 WBC 6.2 RBC 4.27 Hgb 12.3 Hct 38.4 MCV 89.9 MCH 28.8 MCHC 32.0 RDW Std Deviation 46.0 H RDW Coeff of [place] 14.0 Plt Count 289 MPV 9.7 Immature Gran % (Auto) 0.500 Neut % (Auto) 51.6 Lymph % (Auto) 31.9 [place] % (Auto) 7.2 Eos % (Auto) 8.0 H Baso % (Auto) 0.8 Absolute Neuts (auto) 3.2 Absolute Lymphs (auto) 1.99 Nucleated RBC % 0 Sodium 141 Potassium 3.7 Chloride 107 Carbon Dioxide 30.0 Anion Gap 4 L BUN 12 Creatinine 0.73 Estim Creat Clear Calc 31.60 Est GFR (MDRD) Af Amer 97 Est GFR (MDRD) Non-Af 80 BUN/Creatinine Ratio 16.4 Glucose 171 H Calcium 9.1 Troponin I High Sens 4 Urine Color Yellow Urine Clarity Clear Urine pH 7.0 Ur Specific Tyler 1.010 Urine Protein Negative Urine Glucose (UA) Normal Urine Ketones Negative Urine Occult Blood Negative Urine Nitrite Negative Urine Bilirubin Negative Urine Urobilinogen Normal Ur Leukocyte Esterase Negative Urine RBC 0 SEEN Urine WBC 0 SEEN Ur Squamous Epith Cells 0 SEEN Urine Bacteria 0 SEEN Urine Mucus 0 SEEN Radiography Diagnostic Testing: Clinical Impression(s) from Imaging Studies Brain CT 10/23/23 10:26 IMPRESSION: No acute intracranial process. Electronically Signed: Blayne Grimes MD at 11:08 EST , Discharge Plan Triage Chief Complaint: Dizziness ED Provider: Anatoly Arreola Dx/Rx/DC Orders Instructions: ED BPV Vertigo Prescriptions: New meclizine 25 mg tablet 25 mg PO TID PRN (Reason: dizziness) Qty: 30 0RF No Action tolterodine [Detrol LA] 4 MG capsule,extended release 24hr 4 mg PO DAILY aspirin 81 MG tablet,chewable 81 mg PO DAILY@0800 Qty: 30 0RF calcium polycarbophil 625 MG tablet 625 mg PO DAILY atorvastatin 40 MG tablet 20 mg PO QHS Vitamin D3 5,000 iu PO DAILY ondansetron [ondansetron] 4 mg tablet,disintegrating 8 mg PO Q8H PRN PRN (Reason: Nausea) Qty: 20 0RF atorvastatin 20 mg tablet 40 mg PO DAILY Patient Comments: 1 TABLET BY MOUTH DAILY FOR STROKE PREVENTION/CHOLESTEROL ondansetron 4 mg tablet,disintegrating 4 mg PO Q8H PRN PRN (Reason: Nausea) Qty: 10 0RF amoxicillin-pot clavulanate 875-125 mg tablet 1 tab PO BID Qty: 20 0RF Primary Care Provider: Allyson Miller Referrals: Allyson Miller MD [Primary Care Provider] - Disposition Disposition: Home, Self Care
--- NOTE | 2023-10-23 10:39 | RAD_ITS ---
INDICATION: dizziness EXAMINATION/TECHNIQUE: X-RAY - XR Chest 1 View COMPARISON: Prior study dated: 02/18/2023. FINDINGS: LINES/DEVICES: External loop recording device overlying the left chest. LUNGS: No consolidation, edema or effusion. No pneumothorax. MEDIASTINUM AND CARDIOVASCULAR STRUCTURES: Cardiac silhouette not enlarged. Central airways and mediastinal contour are unremarkable. BONES AND SOFT TISSUES: Unremarkable. RAD/Chest 1 View (Portable) IMPRESSION: No radiographic evidence of acute cardiopulmonary disease. Electronically Signed: Blayne Grimes MD at 11:10 EST ,
[2023-10-23] MEDS: Meclizine HCl 25 MG Tablet PO (10:57)
[2023-10-23 11:00] LABS: Anion Gap 4 (5-15); BUN 12 mg/dL (7-18); BUN/Creat Ratio 16.4 RATIO (10-20); Calcium,Total 9.1 mg/dL (8.5-10.1); Chloride 107 mmol/L (98-107); Creatinine, Serum 0.73 mg/dL (0.55-1.02); EST Glomerular Filtration Rate 80 mL/min (>60); Est Glom Filt Rate - Afr Amer 97 mL/min (>60); Glucose 171 mg/dL (74-106); Potassium 3.7 mmol/L (3.5-5.1); Sodium Level 141 mmol/L (136-145); Troponin-I HS 4 pg/mL (3.0-54.0)
[2023-10-23 11:02] LABS: Absolute Lymphocyte Count 1.99 X10^3/uL (0.83-4.51); Absolute Neutrophil Count 3.2 X10^3/uL (2.0-7.7); Basophil# 0.05 X10^3/uL; Basophil% 0.8 % (0-1); Hematocrit 38.4 % (37-47); Hemoglobin 12.3 g/dL (12.0-15.0); Lymphocyte # 1.99 X10^3/ul (0.83-4.51); Lymphocyte % 31.9 % (19-41); Mean Corpuscular Hgb 28.8 pg (27.0-32.0); Mean Corpuscular Volume 89.9 fL (81-99); Mean Platelet Vol. 9.7 fl (6.2-12.0); Monocyte# 0.45 X10^3/uL; Monocyte% 7.2 % (0-10); NRBC Flagged by Analyzer 0 % (0-5); Neutrophil # 3.21 X10^3/uL (2.7-7.7); Neutrophil % 51.6 % (47-70); Platelet Count 289 K/mm3 (150-450); Red Blood Count 4.27 M/mm3 (4.2-5.4); White Blood Count 6.2 K/mm3 (4.4-11.0)
[2023-10-23 11:03] VITALS: BP 133/70; BP 145/78; BP 167/64; PULSE 70; PULSE 78
--- NOTE | 2023-10-23 11:19 | NURSING ---
pt amb on own back to room. sl ataxia still obs. pt reported that dizziness improved from this am however
[2023-10-23 11:22] LABS: Bacteria 0 SEEN /hpf (None Seen); Mucous, Urine 0 SEEN /hpf (<or=2+); Red Blood Cells-Urine 0 SEEN /hpf (0-5); Squamous Epithelial Cells - UA 0 SEEN /hpf (5-10); White Blood Cells 0 SEEN /hpf (0-5)
[2023-10-23 11:37] LABS: Color, Urine Yellow (Yellow); Glucose, Dipstick Normal (Normal); Ketone-Dipstick Negative (Negative); Leukocyte Esterase-Dipstick Negative /ul (Negative); Nitrite-Dipstick Negative (Negative); Occult Blood-Urine Negative /ul (Negative); Protein-Dipstick Negative (Negative); Urine Bilirubin Dipstick Negative (Negative); Urine Clarity Clear (Clear); Urine Urobilinogen Normal (Normal)
[2023-10-23 12:00] VITALS: BP 113/58; PULSE 72; RESP 21; O2SAT 95
== END 2023-10-23 13:07 | disposition home or self-care (01) ==
PROVIDERS: Emergency Provider Student in an Organized Health Care Education/Training Program; PCP Family Medicine; Referring Provider Student in an Organized Health Care Education/Training Program; Visit Provider Student in an Organized Health Care Education/Training Program
DX: H81.10 Benign paroxysmal vertigo, unspecified ear (principal); R11.0 Nausea; E78.5 Hyperlipidemia, unspecified; Z86.73 Personal history of transient ischemic attack (TIA), and cerebral infarction without residual deficits; Z79.82 Long term (current) use of aspirin
CPT/HCPCS: 70450; 71045; 80048; 81001; 84484; 85025; 93005; 99285

== ENCOUNTER 2024-01-14 01:55 | Emergency (ER) | payer MEDICARE, SELFPAY ==
[2024-01-14 01:56] VITALS: BP 171/79; PULSE 78; RESP 16; TEMP 36.1; O2SAT 91; BMI 23.8
[2024-01-14 02:05] VITALS: BP 137/99
--- NOTE | 2024-01-14 02:20 | EKG12_ITS ---
Test Reason : Blood Pressure : / mmHG Vent. Rate : 075 BPM Atrial Rate : 075 BPM P-R Int : 178 ms QRS Dur : 068 ms QT Int : 372 ms P-R-T Axes : 056 -03 058 degrees QTc Int : 415 ms Normal sinus rhythm Normal ECG Confirmed by TRISTIN NICHOLAS, EFRAIN ([id number]), commercial production editor MICHAEL HAM ([id number]) on 01/14/2024 1:07:25 PM Referred By: Confirmed By:EFRAIN CROW MD
--- NOTE | 2024-01-14 02:21 | EDS_ITS ---
HPI History of Present Illness Chief Complaint: Upper Extremity Injury Informant: patient and spouse/S.O. Narrative Narrative: brings in 83-year-old female who has been having right shoulder pain for over a week, now affecting her left shoulder, out of concern that maybe she is having a heart attack. He does most of the speaking for the patient, stating that since she had a stroke, her only residual deficit has been memory issues. She states that her arms hurt worse when she moves them, at the shoulders. Right now they do not hurt if she does not move them. She denies any chest pain, shortness of breath, diaphoresis, syncope, or any other symptoms lately. She is quick to add that for the past 3 weeks in a row, she has been driving him to [place] and back because of cancer treatments and appointments medically for her . She is not used to driving that far. In addition to this, she has been doing upper extremity workouts and torso workouts using her arms for stability in the gym, the last workout was maybe 2 weeks ago according to their estimate. [facility] Medical History Brain aneurysm Hyperlipemia Home Medications tolterodine 4 mg capsule,extended release 24 hr (Detrol LA) 4 mg PO DAILY 01/15/17 [History Last Taken 07/18/19] aspirin 81 mg chewable tablet 81 mg PO DAILY@0800 ##30 07/20/19 [Rx Last Taken Unknown] calcium polycarbophil 625 mg tablet 625 mg PO DAILY 12/06/20 [History Last Taken Unknown] Vitamin D3 5,000 iu PO DAILY 12/10/20 [History Last Taken Unknown] ondansetron 4 mg disintegrating tablet 8 mg (2 x 4 mg) PO Q8H PRN PRN Nausea #20 tabs 07/06/23 [Rx Last Taken Unknown] ondansetron 4 mg disintegrating tablet 4 mg PO Q8H PRN PRN Nausea #10 tabs 07/31/23 [Rx Last Taken Unknown] meclizine 25 mg tablet 25 mg PO TID PRN dizziness #30 tabs 10/23/23 [Rx Last Taken Unknown] atorvastatin 40 mg tablet 40 mg PO QHS 11/30/23 [History Last Taken Unknown] Allergy/AdvReac Type Severity Reaction Status Date / Time bee venom protein (honey bee) Allergy Anaphylaxis Verified 01/14/24 01:57 venom-wasp Allergy Anaphylaxis Verified 01/14/24 01:57 Family History Other Cancer Surgical History H/O: hysterectomy Social History household members: spouse Smoking Status: Never smoker ROS ROS ED Constitutional Constitutional ED: Denies chills, fever(s) or sweats Eyes Eyes: Denies change in vision or diplopia ENT ENT ED: Denies rhinorrhea or sore throat Cardiovascular Cardiovascular: Denies chest pain, lightheadedness, palpitations, radiating jaw, neck or arm pain or syncope Respiratory/Chest Respiratory/Chest: Denies cough or dyspnea Gastrointestinal Gastrointestinal: Denies abdominal pain, diarrhea, nausea or vomiting Genitourinary Genitourinary ED: Denies dysuria or hematuria Musculoskeletal Musculoskeletal: Reports as per HPI and extremity pain; Denies back pain or neck pain Integumentary Denies abscess or rash Neurologic Neurologic: Denies headache(s), paresthesias or weakness Psychiatric Psychiatric: Denies anxiety or suicidal thoughts EXAM Physical Exam Const Vital Signs: 01/14/24 01:56 01/14/24 02:05 Temperature 97 F L Temperature Source Temporal Pulse Rate 78 Respiratory Rate 16 Blood Pressure 171/79 H 137/99 H Blood Pressure Mean 109 111 Pulse Ox 91 Oxygen Delivery Method Room Air Positive well nourished and well developed General Appearance ED: well developed and NAD HEENT Reports moist mucous membranes normocephalic and atraumatic Eyes PERRL and EOMs intact bilaterally Neck full ROM and supple Resp normal respiratory effort and clear to auscultation bilaterally Cardio regular rate, regular rhythm and no murmurs GI non-tender and non-distended Auscultation: normoactive bowel sounds Palpation: soft Back/Spine no CVA tenderness General Back: other FROM Extremity normal to inspection Extremity Narrative: Mild subacromial tenderness on the right more so than the left, but both sides are mildly tender. There is no specific tenderness at the acromioclavicular joints or the biceps tendon origins proximally. Patient has limited abduction of both shoulders, wincing in pain when she does so, indicating subacromial pain. Otherwise, she has painless internal and external rotation when her elbows are down at rest next to her side abducted. The rest of her joints move without difficulty. General Extremety ED: Yes tenderness; Negative for edema or pulses abnormal General Extremity: Negative for edema or pulses abnormal Neuro oriented x3, CN's II-XII intact bilaterally and no sensory deficits noted Sensorium / Orientation: awake and alert Motor Exam: strength 5/5 throughout Psych mental status grossly normal Skin no rashes or lesions noted and no wounds MDM MDM MDM Narrative Medical decision making narrative: Repeat blood pressure on this patient is 137/99. The rest of her vital signs are normal. She has no other symptoms except for shoulder pain that is worse when she moves them. She also has several potential reasons for having pain in her shoulders, namely having her arms up for extended periods of time with her hands on the steering wheel that she is not used to in addition to working out at the gym. Her EKG is normal. Heart score is 3 only because of her age and the fact that she has hyperlipidemia which was discovered when she had her stroke. Given all of this and without any other symptoms, I do not think she needs further emergent workup. I think this is probably muscular shoulder strain versus impingement syndrome versus rotator cuff tears. She does not need emergent radiography of her shoulders. She was given Tylenol and advised to limit movements that hurt, and if her pain does not go away with rest, the follow-up with her doctor. They do not have another trip to [place] the planned in excess of a month, which will give her time to rest. I advised avoiding doing exercises that involve her arms at the gym. They are comfortable with this overall plan. Rhythm Strip Rhythm Strip: Sinus Rhythm Rate: 75 Ectopy: None EKG Initial EKG: Attestation: I personally reviewed and interpreted this EKG as follows: Interpretation: Sinus Rhythm and No Acute Injury Pattern Comments: Normal EKG Prior EKG tracings: available for review Prior: Unchanged Discharge Plan Triage Chief Complaint: Upper Extremity Injury ED Provider: Ricco Rutledge Dx/Rx/DC Orders Clinical Impression: Acute pain of both shoulders Instructions: ED Shoulder Impingement Syndrome Prescriptions: No Action tolterodine [Detrol LA] 4 MG capsule,extended release 24hr 4 mg PO DAILY aspirin 81 MG tablet,chewable 81 mg PO DAILY@0800 Qty: 30 0RF calcium polycarbophil 625 MG tablet 625 mg PO DAILY Vitamin D3 5,000 iu PO DAILY atorvastatin 40 mg tablet 40 mg PO QHS ondansetron [ondansetron] 4 mg tablet,disintegrating 8 mg PO Q8H PRN PRN (Reason: Nausea) Qty: 20 0RF ondansetron 4 mg tablet,disintegrating 4 mg PO Q8H PRN PRN (Reason: Nausea) Qty: 10 0RF meclizine 25 mg tablet 25 mg PO TID PRN (Reason: dizziness) Qty: 30 0RF Primary Care Provider: Allyson Miller Referrals: Allyson Miller MD [Primary Care Provider] - 1 Week if not improving Disposition Disposition: Home, Self Care
--- OUTSIDE RECORDS SUMMARY | 2024-01-14 02:27 | XMS RPT_ITS | CCD ---
Author Name Unknown Address [address] [place] [address] Organization [facility] Care Team Providers Care Clinical Project Leader Name Role Phone Estuardo NICHOLAS, Valerie Loco Primary Care Provider Angela NICHOLAS, Allyson Primary Care Provider Angela NICHOLAS, Allyson Allan Primary Care Provider Estuardo NICHOLAS, Valerie Loco Primary Care Provider [phone] ODETTE KNOTT Attending Unavailable [facility] Primary Care Unavailable SELF, SELF Referring Unavailable RICARDO DASH S Referring Unavailable [facility] [place] Primary Care Unavailable AUGRICARDO VELÁZQUEZ S Referring Unavailable [facility] [place] Primary Care Unavailable [facility] [place] Primary Care Unavailable SUMAN OWENS Admitting Unavailable SUMAN OWENS Attending Unavailable [facility] [place] Primary Care Unavailable CONSULT, SURGERY - NEURO Consulting Unavail able KAYLEIGH FRAGA Attending Unavailable SONIDO LUJAN Admitting Unavailable BARBARA WHATLEY Referring Unavailable [facility] [place] Primary Care Unavailable ROBERTO DASHPH S Referring Unavailable [facility] [place] Primary Care Unavailable RICARDO DASH S Referring Unavailable MARY ANNE HSU JR. Attending Unavailable [facility] [place] Primary Care Unavailable SELF, SELF Referring Unavailable LÓPEZ SHIPLEY Referring Unavailable LÓPEZ NG Attending Unavailable VALERIE MARTE Primary Care Unavailable VALERIE MARTE Primary Care Unavailable LÓPEZ NG Attending Unavailable VALERIE MARTE Primary Care Unavailable VALERIE MARTE Primary Care Unavailable ALLYSON MILLER Referring Unavailable ANGELA, ALLYSON E Primary Care Unavailable ANGELA, ALLYSON E Primary Care Unavailable ALLYSON MILLER Primary Care Unavailable AMRITA SAMUELS Attending Unavailable VALERIE MARTE Primary Care Unavailable Allergies Allergy Classification Reported Allergen(s) Allergy Type Date of Onset Reaction(s) Facility (4 sources) bee stings [Other] Propensity to adverse reactions 7 Swelling, Anaphylaxis [facility] Work Phone: (9 sources) bee venom Propensity to adverse reactions to drug 7 Anaphylaxis, Swelling [facility] (3 sources) Venom-Wasp; Translations: [VENOM-WASP] Drug Allergy 7 Anaphylaxis [facility] Work Phone: (2 sources) Bees; Translations: [BEES] Allergy to substance 3 Anaphylaxis [facility] Work Phone: (1 source) OTHER; Translations: [OTHER] Propensity to adverse reactions (disorder) 7 [facility] Repository Medications Current Medications Medication Drug Class(es) Dates Sig (Normalized) Sig (Original) aspirin 81 mg chewable tablet (11 sources) Platelet Aggregation Inhibitor, Nonsteroidal Anti-inflammatory Drug Start: 07-20-2019 aspirin 81 MG Chew Tab chewable tablet Chew 1 tablet daily. 30 tablet 3 02/21/2023 Active Completed/Discontinued Medications Medication Drug Class(es) Dates Sig (Normalized) Sig (Original) Calcium (5 sources) Phosphate Binder, Calcium CALCIUM ORAL Take by mouth. 0 Active Problems Active Problems Problem Classification Problem Date Documented Date Episodic/Chronic Abdominal pain (1 source) Left lower quadrant pain; Translations: [Left lower quadrant pain] 07-31-2023 Episodic Acute cerebrovascular disease (20 sources) Cerebral infarction, unspecified; Translations: [Cerebral artery occlusion, unspecified with cerebral infarction] Onset: 02-19-2023 05-10-2023 Chronic Disorders of lipid metabolism (5 sources) Hyperlipidemia; Translations: [Hyperlipidemia, unspecified] Onset: 03-15-2015 03-15-2015 Chronic Diverticulosis and diverticulitis (5 sources) Diverticulosis of colon; Translations: [Diverticulosis of large intestine without perforation or abscess without bleeding] Onset: 03-24-2007 12-14-2014 Chronic Esophageal disorders (5 sources) Gastroesophageal reflux disease; Translations: [Gastro-esophageal reflux disease without esophagitis] Onset: 06-27-2013 06-27-2013 Chronic Genitourinary symptoms and ill-defined conditions (5 sources) Urge incontinence of urine; Translations: [Urge incontinence] Onset: 06-27-2013 06-27-2013 Chronic Osteoarthritis (5 sources) Osteoarthritis; Translations: [Unspecified osteoarthritis, unspecified site] Onset: 12-14-2014 11-17-2021 Chronic Other aftercare (1 source) Post-discharge follow-up; Translations: [Encounter for follow-up examination after completed treatment for conditions other than malignant neoplasm] 05-10-2023 Episodic Other aftercare (1 source) Long-term current use of aspirin; Translations: [terminal worker (current) use of aspirin] 05-10-2023 Episodic Other circulatory disease (2 sources) Raynaud's disease; Translations: [Raynaud's syndrome without gangrene] Onset: 07-19-2023 07-19-2023 Chronic Other upper respiratory infections (2 sources) Sore throat symptom; Translations: [Acute pharyngitis, unspecified] 12-30-2023 Episodic Transient cerebral ischemia (2 sources) Transient cerebral ischemic attack, unspecified; Translations: [Transient cerebral ischemic attack, unspecified] Onset: 02-19-2023 Chronic Past or Other Problems Problem Classification Problem Date Documented Date Episodic/Chronic Allergic reactions (9 sources) Eczema; Translations: [Dermatitis, unspecified] Onset: 12-12-2010 12-12-2010 Episodic Diabetes mellitus without complication (2 sources) Prediabetes; Translations: [Prediabetes] Onset: 03-15-2015 03-15-2015 Episodic Gastritis and duodenitis (2 sources) Acute gastritis; Translations: [Acute gastritis without bleeding] Onset: 07-19-2023 07-19-2023 Episodic Other circulatory disease (2 sources) Telangiectasia disorder; Translations: [Nevus, non-neoplastic] Onset: 01-14-2012 01-14-2012 Episodic Other circulatory disease (2 sources) Elevated blood pressure; Translations: [Elevated blood-pressure reading, without diagnosis of hypertension] Onset: 07-19-2023 07-19-2023 Episodic Other connective tissue disease (2 sources) Plantar fascial fibromatosis; Translations: [Plantar fascial fibromatosis] Onset: 07-20-2008 07-20-2008 Episodic Other nervous system disorders (2 sources) Trigeminal neuralgia; Translations: [Trigeminal neuralgia] Onset: 07-07-2023 07-19-2023 Episodic Other screening for suspected conditions (not mental disorders or infectious disease) (2 sources) Mammography abnormal; Translations: [Other abnormal and inconclusive findings on diagnostic imaging of breast] Onset: 08-17-2013 08-17-2013 Episodic Other skin disorders (5 sources) Actinic keratosis; Translations: [Actinic keratosis] Onset: 12-09-2011 12-09-2011 Episodic Other skin disorders (5 sources) Inflamed seborrheic keratosis; Translations: [Inflamed seborrheic keratosis] Onset: 12-09-2011 12-09-2011 Episodic Other skin disorders (5 sources) Solar lentigo; Translations: [Other melanin hyperpigmentation] Onset: 12-09-2011 12-09-2011 Episodic Other skin disorders (7 sources) Asteatosis cutis; Translations: [Xerosis cutis] Onset: 12-09-2011 12-09-2011 Episodic Other skin disorders (5 sources) Seborrheic keratosis; Translations: [Other seborrheic keratosis] Onset: 01-14-2012 01-14-2012 Episodic Results Test Name Value Interpretation Reference Range Facil ity Vital Signs Date Time Vital Sign Value Performing Clinician Naman barrios 12-30-2023 16:06-0500 Body temperature 98.8 [degF] Emy Rosales APRN.CNP Work Phone: [facility] 12-30-2023 16:06-0500 Body weight 58.06 kg Emy Rosales APRN.EXECUTIVE SEARCH CONSULTANT Work Phone: [facility] 12-30-2023 16:06-0500 Diastolic blood pressure 68 mm[Hg] Emy Rosales APRN.EXECUTIVE SEARCH CONSULTANT Work Phone: [facility] 12-30-2023 16:06-0500 Heart rate 96 /min Emy Rosales APRN.EXECUTIVE SEARCH CONSULTANT Work Phone: [facility] 12-30-2023 16:06-0500 Respiratory rate 16 /min Emy Rosales APRN.EXECUTIVE SEARCH CONSULTANT Work Phone: [facility] 12-30-2023 16:06-0500 SaO2% (BldA) [Mass fraction] 98 % mEy Rosales APRN.EXECUTIVE SEARCH CONSULTANT Work Phone: [facility] 12-30-2023 16:06-0500 Systolic blood pressure 132 mm[Hg] Emy Rosales APRN.CNP Work Phone: [facility] 10-29-2023 11:22-0500 Body height 154.9 cm Mary Anne Hsu Jr., MD Work Phone: [facility] Encounters Encounter Date Encounter Type Care Provider Facility Start: 12-30-2023 End: 12-30-2023 [facility] Start: 12-30-2023 End: 12-30-2023 Patient encounter procedure Emy Rosales APRN.CNP Work Phone: [facility] Procedures Date Procedure Procedure Detail Performing Clinician Start: 12-30-2023 STREP A MOLECULAR (POC) [facility] Provider Start: 10-20-2023 DEVICE EVALUATION Other Other Start: 05-31-2023 Implantation pt-acti vated cardiac event recorder Odette Knott COUNTER WAITRESS/WAITER-EXECUTIVE SEARCH CONSULTANT Work Phone: Start: 04-26-2023 Follow-up visit Follow-up ODETTE KNOTT Start: 02-25-2023 JETT SCREENING W EV Cc f Provider Start: 02-19-2023 Antibody screen ODETTE KNOTT Plan of Treatment Date Care Activity Detail Author Start: 03-18-2030 Tetanus vaccination TETANUS [facility] Start: 03-18-2030 Urine microalbumin profile DTaP,Tdap,Td Vaccine (3 - Td or Tdap) [facility] Start: 02-21-2026 Diabetes Screening Diabetes Screening [facility] Start: 02-18-2026 DIABETES SCREEN DIABETES SCREEN [facility] Start: 02-18-2026 Diabetes Screening Diabetes Screening [facility] Start: 12-30-2023 End: 01-13-2024 COVID & INFLUENZA A/B & RSV NAAT, ROUTINE COVID & INFLUENZA A/B & RSV NAAT, ROUTINE Microbiology Routine URI, acute Expected: 12/30/2023, Expires: 01/13/2024 [facility] Work Phone: Immunizations Immunization Date Immunization Notes Care Provider Megan juan carlos 10-08-2021 influenza virus vaccine, unspecified formulation Odette Hedy MARCANON-EXECUTIVE SEARCH CONSULTANT [facility] 01-12-2020 zoster vaccine recombinant Mammography Coordinator [facility] Work Phone: 08-27-2010 influenza virus vaccine, unspecified formulation Mammography Coordinator [facility] Work Phone: 08-27-2010 pneumococcal polysaccharide vaccine, 23 valent Mammography Coordinator [facility] Work Phone: 07-20-2008 tetanus toxoid, redu chele diphtheria toxoid, and acellular pertussis vaccine, adsorbed Mammography Coordinator [facility] Work Phone: Payers Date Payer Category Payer Medicare [id number] 2021 Medicare [id number] 1940 Unknown [id number] 2. [id number] 1940 Unknown [id number] 2. [id number] 1940 Unknown [id number] 2. [id number] 1940 Unknown [id number] 2.16. [id number] 1940 Unknown [id number] 2.16. [id number] 1940 Unknown [id number] 2.16. [id number] 1940 Unknown [id number] 2.16. [id number] 1940 Unknown [id number] 2.16. [id number] Social History Date Type Detail Facility Start: 03-11-2012 End: 02-18-2023 Tobacco smoking status NHIS Never smoked tobacco [facility] Work Phone: Start: 03-11-2012 End: 02-18-2023 Tobacco use and exposure Smokeless tobacco non-user [facility] Work Phone: Start: 11-24-2021 End: 10-29-2023 Alcohol intake Current drinker of alcohol (finding) [facility] Start: 12-14-2014 Alcohol Comment wine a few shana es a week [facility] Start: 1940 Sex Assigned At Female C [facility] Start: 04-26-2023 End: 10-29-2023 Alcohol intake [facility] Start: 04-26-2023 End: 10-29-2023 Tobacco use panel [facility] Start: 04-26-2023 Alcohol Comment social [facility] Start: 1940 Sex Assigned At Not on file O [facility] Adult Depression Screening Assessment 0 [facility] Start: 08-14-2019 Gender identity Identifies as female gender (finding) [facility] Start: 08-14-2019 Sexual orientation Heterosexual (fin ding) [facility] Start: 07-19-2023 Education 21 [facility] NEGATED: Highlighted rowStart: NINF History of tobacco use Passive smoker [facility] Medical Equipment Procedure Code Equipment Code Equipment Origin al Text Equipment Identifier Dates [id number] Implant - [id number] Start: 09-11-2013 [id number] Start: 05-31-2023 Clinical Notes 03-15-2015 to 12-30-2023 Emy Rosales APRN.EXECUTIVE SEARCH CONSULTANT - 12/30/2023 4:10 PM Davi Hsu Jr., MD - 10/29/2023 11:30 AM Sarah Wilkerson PA-C - 07/31/2023 12:04 PM EDTDischarge Instr - ActivityDischarge Instr - Diet Note Date & Type Note Facility 12-30-2023 Note HNO ID: [id number] Author: EMY ROSALES APRN.RAQUEL Service: ? Author Type: Nurse Practitioner Type: Progress Notes Filed: 01/08/2024 08:17 Note Text: CC: Patient presents with: Sore Throat: swollen glands x 1 day HPI: Kana Pool is a 83 year old female who presents to the office with complaint of sore throat for the past day. Symptoms are staying the same. Associated symptoms includes swollen glands. Denies nausea, vomiting , and diarrhea. Treatments tried include nothing so far. with no relief of symptoms. Sick contacts: unknown. History of asthma, frequent episodes of bronchitis, chronic bronchitis, bronchiectasis or COPD: No Smoker: No Seasonal/environmental allergies: No The ROS is otherwise negative. The patient's pmh, medications, allergies, and past visits are reviewed. PHYSICAL EXAM: BP 132/68 Pulse 96 Temp 37.1 ?C (98.8 ?F) Resp 16 Wt 58.1 kg (128 lb) SpO2 98% BMI 25.21 kg/m? General appearance: alert, cooperative, pleasant, in no acute distress Head: Normocephalic Eyes: EOM's intact, conjunctiva pink and moist, no icterus, sclera white, non-injected Ears: Right ear: External ear/canal- Normal, TM - clear with good landmarks. Left ear: External ear/canal- Normal, TM - clear with good landmarks Oropharynx:mild erythema, without exudates present Heart: Negative. RRR without obvious murmur, gallop, or rubs. No ectopy. Lungs: clear to auscultation, without rales or wheeze, good air exchange PAST MEDICAL HISTORY Diagnosis Date Atypical lobular hyperplasia (ALH) of left breast 12/10/2020 Edema Fracture of metatarsal bone of right foot GERD (gastroesophageal reflux disease) Myocardial infarct (HCC) 02/18/2023 Osteoarthrosis, unspecified whether generalized or localized, hand TIA (transient ischemic attack) 01/15/2017 [facility] Urge urinary incontinence PAST SURGICAL HISTORY Procedure Laterality Date BUNIONECTOMY, LAPIDUS-TYPE 2004? Rt BX BREAST W/DEVICE 1ST LESION STEREOTACTIC GUID Left 11/28/2020 CATARACT EXTRACTION HX Bilateral 09/2020 COLONOSCOPY FLX DX W/COLLJ SPEC WHEN PFRMD 07/16/2004 Repeat in COLONOSCOPY FLX DX W/COLLJ SPEC WHEN PFRMD 09/07/2014 EGD TRANSORAL BIOPSY SINGLE/MULTIPLE 09/07/2014 EXC BREAST LES PREOP PLMT RAD MARKER OPEN 1 LES Left 12/10/2020 STEREO LOC FOR CORE BRST BX RT 09/11/2013 RIGHT TONSILLECTOMY HX 194 TOTAL ABDOMINAL HYSTERECT W/WO RMVL TUBE OVARY 1979 Hysterectomy, TOVA ALLERGIES Bees and Venom-Wasp MEDICATIONS EPINEPHrine (EPIPEN) 0.3 mg/0.3 mL auto-injector Take one if she is exposed to bee stings triamcinolone (KENALOG) 0.025 % ointment Apply 1 Application to affected area once daily. CALCIUM ORAL Take by mouth. cholecalciferol, vitamin D3, (VITAMIN D3 ORAL) Take 5,000 Units by mouth once daily. tolterodine ER (DETROL LA) 4 mg 24 hr capsule TAKE 1 CAPSULE ONCE DAILY Fiber cap Take 2 capsules by mouth once daily. aspirin 81 mg chewable tablet Take 1 tablet by mouth once daily. (Patient not taking: Reported on 12/30/2023) ivermectin 1 % Apply to affected area. (Patient not taking: Reported on 11/17/2023) FAMILY HISTORY Problem Relation Age of Onset Cancer Mother 40 ?Lymph nodes, ?Rectal Diabetes Father Diabetes Sister Diabetes Sister Breast Cancer Sister COPD Brother Ovarian cancer Daughter Social History Tobacco Use Smoking status: Never Passive exposure: Never Smokeless tobacco: Never Vaping Use Vaping Use: Never used Substance Use Topics Alcohol use: Yes Comment: wine a few times a week Drug use: No ASSESSMENT/PLAN: 1. Sore throat - ICD9: 462, ICD10: J02.9 (primary diagnosis) Strep was negative suspected viral etiology 2. URI, acute - ICD9: 465.9, ICD10: J06.9 - COVID AND INFLUENZA A/B AND RSV NAAT, ROUTINE Prescription instructions reviewed with patient as applicable. Potential red flag symptoms discussed with the patient. Reviewed appropriate action plan to take if red flag symptoms occur. Patient agreeable to treatment plan. Emy Rosales APRN.[facility] 12-30-2023 History of Presen t illness Narrative CC: Patient presents with: Sore Throat: swollen glands x 1 day HPI: Kana Pool is a 83 year old female who presents to the office with complaint of sore throat for the past day. Symptoms are staying the same. Associated symptoms includes swollen glands. Denies nausea, vomiting , and diarrhea. Treatments tried include nothing so far. with no relief of symptoms. Sick contacts: unknown. History of asthma, frequent episodes of bronchitis, chronic bronchitis, bronchiectasis or COPD: No Smoker: No Seasonal/environmental allergies: No The ROS is otherwise negative. The patient's pmh, medications, allergies, and past visits are reviewed. PHYSICAL EXAM: BP 132/68 Pulse 96 Temp 37.1 C (98.8 F) Resp 16 Wt 58.1 kg (128 lb) SpO2 98% BMI 25.21 kg/m General appearance: alert, cooperative, pleasant, in no acute distress Head: Normocephalic Eyes: EOM's intact, conjunctiva pink and moist, no icterus, sclera white, non-injected Ears: Right ear: External ear/canal- Normal, TM - clear with good landmarks. Left ear: External ear/canal- Normal, TM - clear with good landmarks Oropharynx:mild erythema, without exudates present Heart: Negative. RRR without obvious murmur, gallop, or rubs. No ectopy. Lungs: clear to auscultation, without rales or wheeze, good air exchange PAST MEDICAL HISTORY Diagnosis Date Atypical lobular hyperplasia (ALH) of left breast 12/10/2020 Edema Fracture of metatarsal bone of right foot GERD (gastroesophageal reflux disease) Myocardial infarct (HCC) 02/18/2023 Osteoarthrosis, unspecified whether generalized or localized, hand TIA (transient ischemic attack) 01/15/2017 [facility] Urge urinary incontinence PAST SURGICAL HISTORY Procedure Laterality Date BUNIONECTOMY, LAPIDUS-TYPE 2004? Rt BX BREAST W/DEVICE 1ST LESION STEREOTACTIC GUID Left 11/28/2020 CATARACT EXTRACTION HX Bilateral 09/2020 COLONOSCOPY FLX DX W/COLLJ SPEC WHEN PFRMD 07/16/2004 Repeat in COLONOSCOPY FLX DX W/COLLJ SPEC WHEN PFRMD 09/07/2014 EGD TRANSORAL BIOPSY SINGLE/MULTIPLE 09/07/2014 EXC BREAST LES PREOP PLMT RAD MARKER OPEN 1 LES Left 12/10/2020 STEREO LOC FOR CORE BRST BX RT 09/11/2013 RIGHT TONSILLECTOMY HX 194 TOTAL ABDOMINAL HYSTERECT W/WO RMVL TUBE OVARY 1979 Hysterectomy, TOVA ALLERGIES Bees and Venom-Wasp MEDICATIONS EPINEPHrine (EPIPEN) 0.3 mg/0.3 mL auto-injector Take one if she is exposed to bee stings triamcinolone (KENALOG) 0.025 % ointment Apply 1 Application to affected area once daily. CALCIUM ORAL Take by mouth. cholecalciferol, vitamin D3, (VITAMIN D3 ORAL) Take 5,000 Units by mouth once daily. tolterodine ER (DETROL LA) 4 mg 24 hr capsule TAKE 1 CAPSULE ONCE DAILY Fiber cap Take 2 capsules by mouth once daily. aspirin 81 mg chewable tablet Take 1 tablet by mouth once daily. (Patient not taking: Reported on 12/30/2023) ivermectin 1 % Apply to affected area. (Patient not taking: Reported on 11/17/2023) FAMILY HISTORY Problem Relation Age of Onset Cancer Mother 40 ?Lymph nodes, ?Rectal Diabetes Father Diabetes Sister Diabetes Sister Breast Cancer Sister COPD Brother Ovarian cancer Daughter Social History Tobacco Use Smoking status: Never Passive exposure: Never Smokeless tobacco: Never Vaping Use Vaping Use: Never used Substance Use Topics Alcohol use: Yes Comment: wine a few times a week Drug use: No ASSESSMENT/PLAN: 1. Sore throat - ICD9: 462, ICD10: J02.9 (primary diagnosis) 2. URI, acute - ICD9: 465.9, ICD10: J06.9 - COVID & INFLUENZA A/B & RSV NAAT, ROUTINE Prescription instructions reviewed with patient as applicable. Potential red flag symptoms discussed with the patient. Reviewed appropriate action plan to take if red flag symptoms occur. Patient agreeable to treatment plan. Emy Rosales APRN.RAQUEL documented in this encounter [facility] 11-17-2023 Note HNO ID: [id number] Author: Sarah Gamble PA-C Service: ? Author Type: Physician Service Car Operator Type: Progress Notes Filed: 11/17/2023 8:33 AM Note Text: This note was created using [employer]. Subjective Kana Pool is a 83 year old female. HPI Patient presents with left ear pain since yesterday. She is getting sharp pains in her left ear. She does notice it is worse when she swallows. She does have a history of trigeminal neuralgia but that usually higher up on her scalp and bahai area. She does not have any pain in those areas. No weakness numbness or tingling. Denies headache otherwise. She states she was at her hairdresser yesterday and got splashed with a bunch of water in her ear and then it seemed to start after that. She denies any runny nose or cough. No sinus pressure or pain. She did try some Tylenol [id number] 2 times for symptoms. Denies dizziness or lightheadedness. States she did have a TIA in January. She had a full workup at [facility] with a negative MRI. Presents with . Review of Systems Constitutional: Negative. HENT: Positive for ear pain. Negative for ear discharge, hearing loss, postnasal drip, rhinorrhea, sinus pressure, sinus pain and sore throat. Respiratory: Negative for cough. Cardiovascular: Negative. Gastrointestinal: Negative. Genitourinary: Negative. Musculoskeletal: Negative. Neurological: Negative for dizziness, facial asymmetry, light-headedness, numbness and headaches. All other systems reviewed and are negative. PAST MEDICAL HISTORY Diagnosis Date Atypical lobular hyperplasia (ALH) of left breast 12/10/2020 Edema Fracture of metatarsal bone of right foot GERD (gastroesophageal reflux disease) Myocardial infarct (HCC) 02/18/2023 Osteoarthrosis, unspecified whether generalized or localized, hand TIA (transient ischemic attack) 01/15/2017 [facility] Urge urinary incontinence Current Outpatient Medications Medication Sig Dispense Refill aspirin 81 mg chewable tablet Take 1 tablet by mouth once daily. EPINEPHrine (EPIPEN) 0.3 mg/0.3 mL auto-injector Take one if she is exposed to bee stings 2 Each 1 triamcinolone (KENALOG) 0.025 % ointment Apply 1 Application to affected area once daily. CALCIUM ORAL Take by mouth. cholecalciferol, vitamin D3, (VITAMIN D3 ORAL) Take 5,000 Units by mouth once daily. tolterodine ER (DETROL LA) 4 mg 24 hr capsule TAKE 1 CAPSULE ONCE DAILY 90 capsule 2 Fiber cap Take 2 capsules by mouth once daily. predniSONE (DELTASONE) 20 mg tablet Take 1 tablet by mouth once daily for 7 days. Take daily with food. 7 tablet 0 ivermectin 1 % Apply to affected area. (Patient not taking: Reported on 11/17/2023) No current facility-administered medications for this visit. PAST SURGICAL HISTORY Procedure Laterality Date BUNIONECTOMY, LAPIDUS-TYPE 2004? Rt BX BREAST W/DEVICE 1ST LESION STEREOTACTIC GUID Left 11/28/2020 CATARACT EXTRACTION HX Bilateral 09/2020 COLONOSCOPY FLX DX W/COLLJ SPEC WHEN PFRMD 07/16/2004 Repeat in COLONOSCOPY FLX DX W/COLLJ SPEC WHEN PFRMD 09/07/2014 EGD TRANSORAL BIOPSY SINGLE/MULTIPLE 09/07/2014 EXC BREAST LES PREOP PLMT RAD MARKER OPEN 1 LES Left 12/10/2020 STEREO LOC FOR CORE BRST BX RT 09/11/2013 RIGHT TONSILLECTOMY HX 194 TOTAL ABDOMINAL HYSTERECT W/WO RMVL TUBE OVARY 1980 Hysterectomy, TOVA FAMILY HISTORY Problem Relation Age of Onset Cancer Mother 40 ?Lymph nodes, ?Rectal Diabetes Father Diabetes Sister Diabetes Sister Breast Cancer Sister COPD Brother Ovarian cancer Daughter Social History Tobacco Use Smoking status: Never Passive exposure: Never Smokeless tobacco: Never Vaping Use Vaping Use: Never used Substance Use Topics Alcohol use: Yes Comment: wine a few times a week Drug use: No Objective BP 122/70 Pulse 94 Temp 36.3 ?C (97.4 ?F) Resp 16 Wt 56.7 kg (125 lb) SpO2 97% BMI 24.62 kg/m? Physical Exam Vitals reviewed. Constitutional: Appearance: Normal appearance. HENT: Head: Normocephalic and atraumatic. Right Ear: Tympanic membrane, ear canal and external ear normal. There is no impacted cerumen. Left Ear: Tympanic membrane, ear canal and external ear normal. There is no impacted cerumen. Nose: Nose normal. Mouth/Throat: Mouth: Mucous membranes are moist. Pharynx: Oropharynx is clear. Cardiovascular: Rate and Rhythm: Normal rate and regular rhythm. Heart sounds: Normal heart sounds. Pulmonary: Effort: Pulmonary effort is normal. Breath sounds: Normal breath sounds. Musculoskeletal: Cervical back: Neck supple. Lymphadenopathy: Cervical: No cervical adenopathy. Neurological: General: No focal deficit present. Mental Status: She is alert and oriented to person, place, and time. Cranial Nerves: No cranial nerve deficit. Motor: No weakness. Coordination: Coordination normal. Gait: Gait normal. Assessment and Plan ASSESSMENT/PLAN: 1. Otalgia of left ea (more content not included)... [facility] History of Presen t illness Narrative Last seen by RAQUEL Knott 04/26/23. Interim history reviewed. Had loop recorder placed early May. Seen in ER several months ago with bilateral temporal stabbing pains lasting most of day. Gets occasional brief right parietal stabbing pains since. Seen in ER last week when awoke with gait ataxia. Resolved over 6-12 hours with meclizine. Reportedly had MR that was unremarkable but don't have a report or images to review. Only residual from stroke is problems with short term memory which has not affected day to day functioning. Neurological exam. Language: fluent. Cranial Nerves: normal V, VII, EOM, visual levine. Motor: 5/5 bilaterally upper and lower extremity. Sensory: normal pin, touch bilaterally upper, lower extremities, no extinction to touch. Cerebellar: normal finger, foot tap bilaterally; normal finger to nose, heel to keane bilaterally. Gait normal. 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 Work up for etiology negative. Has loop recorder to evaluate for atrial fibrillation. Will continue aggressive treatment of atherosclerotic risk factors and remain on aspirin. Systolic blood pressure elevated in clinic (155 mm Hg), but hadn't taken morning medications. Runs in normal range when checked at home. Will continue to monitor pressures. Etiology of spell of ataxia uncertain. Reportedly no infarct on MR, could be from peripheral vestibular mechanism. Possible was vertebral basilar TIA but would not change management manager. History suggestive of primary stabbing headaches. Reviewed natural history of these headaches. Follow up 9 months. I spent about 30 minutes today with patient and her daughter, reviewing history, examining patient, discussing impressions, answering questions and charting. documented in this encounter [facility] 07-31-2023 Note HNO ID: [id number] Author: Sarah Gamble PA-C Service: ? Author Type: Physician Service Car Operator Type: Progress Notes Filed: 07/31/2023 12:04 PM Note Text: Presents to express care triage with a chief complaint of left lower quadrant abdominal pain. Has been going on for 2 or 3 days. She rates it a 7 or 8 out of 10. Denies any urinary symptoms. She has a history of diverticulitis. Discussed with the patient I would recommend she be seen in the emergency department. She will go to [facility] by private vehicle. [facility] 07-31-2023 History of Presen t illness Narrative Presents to [facility] care triage with a chief complaint of left lower quadrant abdominal pain. Has been going on for 2 or 3 days. She rates it a 7 or 8 out of 10. Denies any urinary symptoms. She has a history of diverticulitis. Discussed with the patient I would recommend she be seen in the emergency department. She will go to [facility] by private vehicle. documented in this encounter [facility] 07-19-2023 Note HNO ID: [id number] Author: Amrita Samuels APRN.EXECUTIVE SEARCH CONSULTANT Service: ? Author Type: Nurse Practitioner Type: Progress Notes Filed: 07/19/2023 3:10 PM Note Text: Kana is a 83 year old who presents for an annual gynecologic exam without complaints. Postmenopausal: Yes HRT use: Yes, before hyster How long: few yrs. Last Pap: normal HPV: negative History of abnormal pap: No Last mammogram: 2022 normal History of abnormal mammogram: Yes Sexually active: No OB History T0 L3 SAB3 IAB0 Ectopic0 Multiple0 Live Births0 Echocardiographer History LMP: Hysterectomy Age at Menarche: Age at First : Age at Menopause: Echocardiographer History Comments: Sexual Activity: Yes; Male Contraception: No contraception data on record PAST MEDICAL HISTORY Diagnosis Date Atypical lobular hyperplasia (ALH) of left breast 12/10/2020 Edema Fracture of metatarsal bone of right foot GERD (gastroesophageal reflux disease) Myocardial infarct (HCC) 02/18/2023 Osteoarthrosis, unspecified whether generalized or localized, hand TIA (transient ischemic attack) 01/15/2017 [facility] Urge urinary incontinence PAST SURGICAL HISTORY Procedure Laterality Date BUNIONECTOMY, LAPIDUS-TYPE 2004? Rt BX BREAST W/DEVICE 1ST LESION STEREOTACTIC GUID Left 11/28/2020 CATARACT EXTRACTION HX Bilateral 09/2020 COLONOSCOPY FLX DX W/COLLJ SPEC WHEN PFRMD 07/16/2004 Repeat in COLONOSCOPY FLX DX W/COLLJ SPEC WHEN PFRMD 09/07/2014 EGD TRANSORAL BIOPSY SINGLE/MULTIPLE 09/07/2014 EXC BREAST LES PREOP PLMT RAD MARKER OPEN 1 LES Left 12/10/2020 STEREO LOC FOR CORE BRST BX RT 09/11/2013 RIGHT TONSILLECTOMY HX 1944 TOTAL ABDOMINAL HYSTERECT W/WO RMVL TUBE OVARY 1980 Hysterectomy, TOVA FAMILY HISTORY Problem Relation Age of Onset Cancer Mother 40 ?Lymph nodes, ?Rectal Diabetes Father Diabetes Sister Diabetes Sister Breast Cancer Sister COPD Brother Ovarian cancer Daughter SOCIAL HISTORY Social History Tobacco Use Smoking status: Never Passive exposure: Never Smokeless tobacco: Never Vaping Use Vaping Use: Never used Substance Use Topics Alcohol use: Yes Comment: wine a few times a week Drug use: No REVIEW OF SYSTEMS Abdomen: No abdominal pain, nausea, vomiting, diarrhea, or constipation. No bloating, early satiety, indigestion, or increased flatulence. Bladder: No dysuria, gross hematuria, urinary frequency, urinary urgency, or incontinence Breast: No breast lumps, nipple d/c, overlying skin changes, redness or skin retraction Allergies and current medication updated:Yes EXAM: Ht 4' 11.75 (1.52m) Wt 124 lb 6.4 oz (56.4kg) BMI 24.49 kg/(m2). GENERAL: pleasant, female in no apparent distress HEENT: Normocephalic, atraumatic, mucus membranes moist, and no lesions NECK: Supple, full range of motion, no adenopathy, and thyroid normal DERMATOLOGY: Normal, without lesions, non-icteric, and non-hirsute BREAST: soft, non-tender, symmetric, no dominant mass, normal nipple-areolar complex, no lymphadenopathy, and no nipple discharge CHEST: Normal inspiratory effort ABDOMEN: soft, non-tender, and no masses PELVIC: external genitalia normal, normal Bartholin's glands, urethra, [place]'s glands, no vulvar lesions, no cervical lesions, good vaginal support, physiologic discharge present, normal appearing perineal body and perianal region BIMANUAL: uterus normal size, shape and consistency, no adnexal masses, and non-tender RECTOVAGINAL: deferred. NEURO: alert and oriented x3,exam grossly non-focal EXTREMITIES: normal ASSESSMENT/PLAN: 1) Health maintenance: Pap/HPV screening no longer needed Mammogram up to date Nutrition, exercise and routine health maintenance exams reviewed. Calcium/Vitamin D supplementation information provided. 2) Follow up one year or sooner as needed Amrita Samuels APRN.RAQUEL [facility] 06-29-2023 Miscellaneous Notes Received outside medical records from Dr Nacho Nobles regarding Lichen sclerosis. Records to nurse area documented in this encounter [facility] 05-31-2023 Nurse Note Discharge instructions and printed AVS reviewed with patient by this RN, all questions answered. Pt verbalizes understanding. IV dc'd with no difficulty and catheter tip intact. Telemetry dc'd. VS stable at time of discharge. Patient being discharged to home with . No patient belongings left at bedside. Post procedure recovery without events. Left sternal site without bleeding or hematoma, palpable radial pulses. Ambulates prior to DC [facility] difficulty[facility] Miscellaneous Notes Discharge instructions and printed AVS reviewed with patient by this RN, all questions answered. Pt verbalizes understanding. IV dc'd with no difficulty and catheter tip intact. Telemetry dc'd. VS stable at time of discharge. Patient being discharged to home with . No patient belongings left at bedside. Post procedure recovery without events. Left sternal site without bleeding or hematoma, palpable radial pulses. Ambulates prior to DC without difficulty. documented in this encounter [facility] 05-31-2023 Hospital Discharg e instructions López Buckner APRN-RAQUEL - 05/31/2023 8:27 AM EDT Driving Restrictions If you have passed out, do not drive for 3 months after your last episode. If you have any questions about this restriction, please call your healthcare provider's office. Rest for 24 hours after you are home. You should have someone with you to help you the first night you are home. DO NOT make any important decisions for 24 hours. DO NOT work around the stove, machinery or power equipment for 24 hours. DON Marquis - 05/31/2023 8:27 AM EDT Diet: Cardiac 4gm NA Low sodium, low fat, low cholesterol, caffeine controlled. Sodium restricted to 4 grams. HAT DON Marquis - 05/31/2023 8:27 AM EDT Images from the original note were not included. Check your site each day and call the the [facility] if you have: Increased drainage or bleeding at the site An incision that opens Redness, swelling, or warmth at the site A pimple that develops at the incision A thread (suture) along the incision A fever greater than 101 degrees for 38.3 degrees C When you are nauseated, you may feel weak and sweaty and notice a lot of saliva in your mouth. Nausea often leads to vomiting. Most of the time you do not need to worry about nausea and vomiting, but they can be signs of other illnesses. The doctor has checked you carefully, but problems can develop later. If you notice any problems or new symptoms, get medical treatment right away. Follow-up care is a varma part of your treatment and safety. Be sure to make and go to all appointments, and call your doctor if you are having problems. It's also a good idea to know your test results and keep a list of the medicines you take. How can you care for yourself at home? To prevent dehydration, drink plenty of fluids, enough so that your urine is light yellow or clear like water. Choose water and other caffeine-free clear liquids until you feel better. If you have kidney, heart, or liver disease and have to limit fluids, talk with your doctor before you increase the amount of fluids you drink. Rest in bed until you feel better. When you are able to eat, try clear soups, mild foods, and liquids until all symptoms are gone for 12 to 48 hours. Other good choices include dry toast, crackers, cooked cereal, and gelatin dessert, such as Jell-O. When should you call for help? Call 911 anytime you think you may need emergency care. For example, call if: You passed out (lost consciousness) Call your doctor now or seek immediate medical care if: You have symptoms of dehydration, such as: Dry eyes and a dry mouth Passing only a little dark urine Feeling thirstier than usual You have new or worsening belly pain You have a new or higher fever You vomit blood or what looks like coffee grounds Watch closely for changes in your health, and be sure to contact your doctor if: You have on going nausea and vomiting Your vomiting gets worse Your vomiting last longer than 2 days You are not getting better as expected Where can you learn more? Go to [email or web address] chart. DON Marquis - 05/31/2023 8:27 AM EDT Your incision care The pacemaker may buldge slightly under the skin. This is normal and common right after surgery. This will lesson over the nxt few weeks. You may have bruising around the incision, especially if you take blood thinner medicines, called anticoagulants, such as aspirin or warfarin. Itching is a normal part of the healing process. Try not to rub or scratch the incision site. Keep your incision clean and dry. Your dressing is waterproof and can be worn in the shower. Your dressing can be left in place for up to seven (7) days. Dressing may need to be changed sooner, depending on the amount of fluid it absorbs. Dressing flexes with skin during body movement. documented in this encounter [facility] 05-31-2023 History and physical note Chief Complaint Here for ILR HPI Kana Pool is a 83 y.o. female with hx of TIA, HLD, and cryptogenic L MCA and small SAH. Cardiac event monitor was unremarkable and the decision was made to proceed with ILR implant. She denies any recent chest pain, dyspnea, palpitations, presyncope, syncope, orthopnea or PND. Patient Active Problem List Diagnosis Stroke Past Medical History: Diagnosis Date Stroke TIA (transient ischemic attack) 2018 Past Surgical History: Procedure Laterality Date APPENDECTOMY BREAST LUMPECTOMY HYSTERECTOMY TONSILLECTOMY Medications Prior to Admission Medication Sig Dispense Refill Last Dose aspirin 81 MG Chew Tab chewable tablet Chew 1 tablet daily. 30 tablet 3 Atorvastatin 40 MG tablet 1 tablet by Per NG tube route at bedtime. 30 tablet 2 tolterodine 4 MG Cap SR 24HR Take 1 capsule by mouth daily. Allergies Allergen Reactions Bee Venom Anaphylaxis and Swelling Social History Socioeconomic History Marital status: Tobacco Use Smoking status: Never Passive exposure: Never Smokeless tobacco: Never Vaping Use Vaping Use: Never used Substance and Sexual Activity Alcohol use: Yes Alcohol/week: 2.0 standard drinks of alcohol Types: 2 Glasses of wine per week Comment: social Drug use: Never Sexual activity: Not Currently Partners: Male control/protection: Hysterectomy Other Topics Concern Occupational Exposure No Hobby Hazards No Family History Problem Relation Age of Onset Cancer Mother 48 Diabetes Father Parkinson Sister Diabetes Sister Breast Cancer Sister Emphysema Brother Referring MD: Odette Rowland PCP Allyson Miller Anticoagulation: None Prior Cardiac testing: [facility]-04/01/23 Worn for 27 days. Sinus rhythm with rare PVCs and rare SVE beats recorded. No symptomatic events. No atrial fibrillation detected. Review of System Constitutional: Negative for fever, weight loss, weight gain and malaise/fatigue. Skin: Negative. HEENT: Negative. Cardiovascular: Negative for leg swelling. Negative for palpitations, chest pain, dyspnea, orthopnea, claudication, edema and PND. Negative for lightheadedness or syncope. Respiratory: Negative for cough. Is not experiencing shortness of breath currently. Gastrointestinal: Negative for abdominal pain, nausea, vomiting, diarrhea, melena, and constipation. Endocrine: Negative for polyuria, polydipsia, heat or cold intolerance. Genitourinary: Negative for frequency or burning with urination. Neurological: Negative for dizziness and headaches. Psychiatric: Negative for depression, nervous/anxious and substance abuse. Telemetry/EKG: SR BP 181/85 (BP Location: Right arm, BP Position: Lying) Pulse 79 Temp 97.5 F (36.4 C) (Oral) Resp 14 Ht 1.549 m (5' 1 ) Wt 54.4 kg (120 lb) SpO2 100% BMI 22.67 kg/m Smoking Status Never Body mass index is 22.67 kg/m . Physical Exam General appearance - alert, LOC x 3, well appearing, and in no distress Neck - supple, no significant adenopathy, carotids upstroke normal bilaterally without bruits. Chest - lungs clear to auscultation, breath sounds equal and symmetric, no rhonchi, rales or wheezes Heart - regular rate and rhythm, S1 and S2 normal, no murmurs, clicks, gallops or rubs, normal bilateral carotid upstroke without bruits, no JVD Abdomen - soft, nontender, nondistended, no masses or organomegaly, bowel sounds present x 4 quadrants. Extremities - peripheral pulses normal, no pedal edema, no clubbing or cyanosis Skin - normal coloration and turgor, no rashes, no suspicious skin lesions noted Lab Results Component Value Date SODIUM 141 02/21/2023 POTASSIUM 4.1 02/21/2023 CHLORIDE 105 02/21/2023 CO2 26 02/21/2023 BUN 11 02/21/2023 CREATSERUM 0.67 02/21/2023 GLUCOSE 111 (H) 02/21/2023 Lab Results Component Value Date WBC 8.43 02/21/2023 HGB 12.3 02/21/2023 HCT 38.0 02/21/2023 PLATELET 286 02/21/2023 MCV 89.8 02/21/2023 INR Date Value Ref Range Status 02/18/2023 1.0 0.9 - 1.1 Final Assessment and Plan Cryptogenic CVA- Fellow to obtain consent. OK to proceed with ILR implant Associated attestation - Jamee Boothe APRN-CNP - 05/31/2023 12:40 PM EDT Performing COUNTER WAITRESS/WAITER-EXECUTIVE SEARCH CONSULTANT Note I have personally interviewed and examined this patient on 05/31/23 I have reviewed the history and examination and edited these in the H&P note. I agree with the medical decision and components of the note as edited by me. Patient is alert and oriented and VS stable. She has a history of cryptogenic stroke. We will plan for an ILR implant today. The procedure was explained with indication, risks and benefits and the patient consents to proceed. Jamee Boothe, DON Nurse Practitioner, Electrophysiology Service [facility] Work Phone: 05-31-2023 History and physical note Chief Complaint Here for ILR HPI Kana Pool is a 83 y.o. female with hx of TIA, HLD, and cryptogenic L MCA and small SAH. Cardiac event monitor was unremarkable and the decision was made to proceed with ILR implant. She denies any recent chest pain, dyspnea, palpitations, presyncope, syncope, orthopnea or PND. Patient Active Problem List Diagnosis Stroke Past Medical History: Diagnosis Date Stroke TIA (transient ischemic attack) 2018 Past Surgical History: Procedure Laterality Date APPENDECTOMY BREAST LUMPECTOMY HYSTERECTOMY TONSILLECTOMY Medications Prior to Admission Medication Sig Dispense Refill Last Dose aspirin 81 MG Chew Tab chewable tablet Chew 1 tablet daily. 30 tablet 3 Atorvastatin 40 MG tablet 1 tablet by Per NG tube route at bedtime. 30 tablet 2 tolterodine 4 MG Cap SR 24HR Take 1 capsule by mouth daily. Allergies Allergen Reactions Bee Venom Anaphylaxis and Swelling Social History Socioeconomic History Marital status: Tobacco Use Smoking status: Never Passive exposure: Never Smokeless tobacco: Never Vaping Use Vaping Use: Never used Substance and Sexual Activity Alcohol use: Yes Alcohol/week: 2.0 standard drinks of alcohol Types: 2 Glasses of wine per week Comment: social Drug use: Never Sexual activity: Not Currently Partners: Male control/protection: Hysterectomy Other Topics Concern Occupational Exposure No Hobby Hazards No Family History Problem Relation Age of Onset Cancer Mother 48 Diabetes Father Parkinson Sister Diabetes Sister Breast Cancer Sister Emphysema Brother Referring MD: Odette Rowland PCP Allyson Miller Anticoagulation: None Prior Cardiac testing: [facility]-04/01/23 Worn for 27 days. Sinus rhythm with rare PVCs and rare SVE beats recorded. No symptomatic events. No atrial fibrillation detected. Review of System Constitutional: Negative for fever, weight loss, weight gain and malaise/fatigue. Skin: Negative. HEENT: Negative. Cardiovascular: Negative for leg swelling. Negative for palpitations, chest pain, dyspnea, orthopnea, claudication, edema and PND. Negative for lightheadedness or syncope. Respiratory: Negative for cough. Is not experiencing shortness of breath currently. Gastrointestinal: Negative for abdominal pain, nausea, vomiting, diarrhea, melena, and constipation. Endocrine: Negative for polyuria, polydipsia, heat or cold intolerance. Genitourinary: Negative for frequency or burning with urination. Neurological: Negative for dizziness and headaches. Psychiatric: Negative for depression, nervous/anxious and substance abuse. Telemetry/EKG: SR BP 181/85 (BP Location: Right arm, BP Position: Lying) Pulse 79 Temp 97.5 F (36.4 C) (Oral) Resp 14 Ht 1.549 m (5' 1 ) Wt 54.4 kg (120 lb) SpO2 100% BMI 22.67 kg/m Smoking Status Never Body mass index is 22.67 kg/m . Physical Exam General appearance - alert, LOC x 3, well appearing, and in no distress Neck - supple, no significant adenopathy, carotids upstroke normal bilaterally without bruits. Chest - lungs clear to auscultation, breath sounds equal and symmetric, no rhonchi, rales or wheezes Heart - regular rate and rhythm, S1 and S2 normal, no murmurs, clicks, gallops or rubs, normal bilateral carotid upstroke without bruits, no JVD Abdomen - soft, nontender, nondistended, no masses or organomegaly, bowel sounds present x 4 quadrants. Extremities - peripheral pulses normal, no pedal edema, no clubbing or cyanosis Skin - normal coloration and turgor, no rashes, no suspicious skin lesions noted Lab Results Component Value Date SODIUM 141 02/21/2023 POTASSIUM 4.1 02/21/2023 CHLORIDE 105 02/21/2023 CO2 26 02/21/2023 BUN 11 02/21/2023 CREATSERUM 0.67 02/21/2023 GLUCOSE 111 (H) 02/21/2023 Lab Results Component Value Date WBC 8.43 02/21/2023 HGB 12.3 02/21/2023 HCT 38.0 02/21/2023 PLATELET 286 02/21/2023 MCV 89.8 02/21/2023 INR Date Value Ref Range Status 02/18/2023 1.0 0.9 - 1.1 Final Assessment and Plan Cryptogenic CVA- Fellow to obtain consent. OK to proceed with ILR implant Associated attestation - Jamee Boothe APRN-CNP - 05/31/2023 12:40 PM EDT Performing DON Note I have personally interviewed and examined this patient on 05/31/23 I have reviewed the history and examination and edited these in the H&P note. I agree with the medical decision and components of the note as edited by me. Patient is alert and oriented and VS stable. She has a history of cryptogenic stroke. We will plan for an ILR implant today. The procedure was explained with indication, risks and benefits and the patient consents to proceed. DON Myrick Nurse Practitioner, Electrophysiology Service documented in this encounter [facility] 04-26-2023 History of Presen t illness Narrative [facility] Department of Neurology Section of Cerebrovascular Disease and Neurocritical Care Hospital Follow Up IDENTIFYING PATIENT INFORMATION: Kana Pool MR# [id number] 04/26/2023 CHIEF COMPLAINT: Follow up after hospitalization HISTORY OF PRESENT ILLNESS: The patient Kana Pool is a 82 y.o. right-handed female has a past medical history of Stroke. Kana Pool who presents to the outpatient stroke clinic accompanied in the office by her daughter. Kana Pool for follow-up after recent hospitalization. For details, please refer to the discharge summary dated 02/21/23. In summary, the patient presented as a hemorrhagic stroke alert from [facility]. Patient presented to OSH with expressive aphasia and R sided weakness. LKW 1415. Initial telestroke completed at 1622, NIHSS 8 (2question, 2 commands, 1 RUE, 3 language). CTH negative for hemorrhage and patient received tPA at 1630. CTA without LVO. Later developed worsening weakness in her RUE and RLE, repeat CTH showed right temporal lobe small subarachnoid hemorrhage. No reversal given as bleed remained stable and high suspicion for L MCA stroke. On arrival, NIHSS 14, CTH showed stable SAH. MRI confirmed subacute left temporal infarct. Stroke Workup: CTH: Small R temporal SAH no large territory stroke CTA brain/neck: no LVO, critical stenosis, or vascular abnormalities Repeat CTH: stable SAH MRI brain Subcentimeter acute to subacute cortical infarct in the left temporal lobe. No mass effect or hemorrhagic conversion. Stable, small volume of subarachnoid hemorrhage in the right temporal region TTE-to be done as outpt EKG on admission: ST, QTC 441 LDL 112 HgbA1c 5.9 Patient was diagnosed with LMCA stoke with small SAH with cryptogenic etiology. Started on ASA 81 mg daily and atorvastatin 40mg for secondary stroke risk reduction. TTE and 30 day DELMY was ordered outpatient. PAST MEDICALHISTORY: Past Medical History: Diagnosis Date Stroke PAST SURGICAL HISTORY: No past surgical history on file. CURRENT MEDICATIONS: Current Outpatient Medications Medication Sig Dispense Refill aspirin 81 MG Chew Tab chewable tablet Chew 1 tablet daily. 30 tablet 3 Atorvastatin 40 MG tablet 1 tablet by Per NG tube route at bedtime. 30 tablet 2 tolterodine 4 MG Cap SR 24HR Take 1 capsule by mouth daily. No current facility-administered medications for this visit. ALLERGIES: Allergies Allergen Reactions Bee Venom Anaphylaxis and Swelling SOCIAL HISTORY: Social History Tobacco Use Smoking status: Never Passive exposure: Never Smokeless tobacco: Never Substance Use Topics Alcohol use: Yes Alcohol/week: 2.0 standard drinks Types: 2 Glasses of wine per week Comment: sometimes Drug use: Never Psycho-Social History: She reports that she has never smoked. She has never been exposed to tobacco smoke. She has never used smokeless tobacco. She reports current alcohol use of about 2.0 standard drinks per week. She reports that she does not use drugs. She currently resides at home FAMILY HISTORY: No family history of early strokes PAIN ASSESSMENT (Patient reports Pain): none FALL ASSESSMENT: none MEDICATION COMPLIANCE: Takes medication as prescribed without missed doses RECENT HOSPITALIZATION: none HOME HEALTH NEEDS: none FUNCTIONAL ASSESSMENT (Able to perform all ADLs): Performs all ADL's independently REVIEW OF SYSTEMS: No history of fever, chills, sweats, weight loss, fatigue, vision loss, double vision,visual scintillations, blurring, hearing loss, tinnitus, voice change, speech problems, chest pain, dyspnea, palpitations, cough, swallowing difficulties, nausea, vomiting, diarrhea, constipation, hematuria, dysuria, frequency, joint pain, joint swelling, rash, easy bruising, bleeding, headache, dizzy, LOC, focal motor weakness, sensory loss, numbness, tingling, tremors, twitches, seizures, balance problems, gait problems, coordination difficulties, depression, fatigue, or insomnia. Positive Review of Systems:memory loss PHYSICAL EXAM: Vitals: 04/26/23 1259 BP: 165/72 Pulse: 75 Temp: 97.2 F (36.2 C) Blood pressure elevated in clinic. Will continue to check and record blood pressures and discuss with PCP if blood pressures are consistently elevated >140s. Neurological examination: General: The patient appears nutritionally appropriate, well-groomed, and appears comfortable in no acute distress. Mental Status: The patient s mental status was normal including orientation, memory, attention span, concentration, and fund of knowledge. Language was intact. Cranial nerves: Visual levine full, pupils were equal and reactive to light, and extra-ocular motion was intact. Face motion and sensation were symmetric. Hearing was symmetric to bilateral finger rub. Palate was symmetric. Bilateral shoulder shrug was intact. Tongue was midline with normal movement. There was no dysarthria. Motor: Normal strength and tone in all four extremities. No pronator drift. Bilateral fast finger movements were symmetric. Sensation: Intact light touch bilaterally, no extinction. Coordination: Bilateral finger to nose was normal. There was no dysmetria. No dysdiadokinesia. Gait: Gait was narrow-based and steady. NIH STROKE SCALE 1a. Level of consciousness: 0 1b. Level of consciousness questions: 0 1c. Level of consciousness commands: 0 2. Best Gaze: 0 3. Visual: 0 4. Facial Palsy: 0 5a. Motor left arm: 0 5b. Motor right arm: 0 6a. Motor left le 6b. Motor right le 7. Limb Ataxia: 0 8. Sensory: 0 9. Best Language: 0 10. Dysarthria: 0 11. Extinction and Inattention: 0 TOTAL: 0 Modified Erica Score at Hospital Discharge: 1 DATA: HgBA1c: Lab Results Component Value Date HGBA1C 5.9 (H) 02/18/2023 Lipid panel: Lab Results Component Value Date CHOLESTEROL 203 (H) 02/18/2023 TRIG 82 02/18/2023 HDL 75 02/18/2023 LDLDIRECT 112 (H) 02/18/2023 RADIOLOGY REVIEW: I have reviewed radiology image(s) and report(s) of: MRI BRAIN WITHOUT CONTRAST Narrative: EXAM: MRI BRAIN WITHOUT CONTRAST, 02/19/2023 12:52 PM COMPARISON: Same day noncontrast head CT CLINICAL INDICATIONS: 82 years Female L MCA stroke; RELEVANT CLINICAL HISTORY: TECHNIQUE: A series of multisequence, multiplanar images of the brain are obtained without intravenous contrast. FINDINGS: 7 mm, linear focus of restricted diffusion and increased T2 signal along the cortex of the left temporal lobe compatible with an acute to subacute infarct. No mass effect or underlying susceptibility artifact. Mild to moderate patchy white matter hyperintensities in both cerebral hemispheres and the brainstem. No mass effect or midline shift. No hydrocephalus. Thin curvilinear susceptibility artifact and increased T2 FLAIR signal along one of the right temporal sulci corresponding to the acute subarachnoid hemorrhage noted on the same day head CT. Additional small focus of susceptibility artifact in the anterior left loren compatible with a remote microhemorrhage. Bilateral cataract surgery. Trace opacity in the sinuses and left mastoid air cells. Impression: IMPRESSION: Subcentimeter acute to subacute cortical infarct in the left temporal lobe. No mass effect or hemorrhagic conversion. Stable, small volume of subarachnoid hemorrhage in the right temporal region. Remote microhemorrhage in the anterior left loren HEAD WITHOUT CONTRAST Narrative: EXAM: CT HEAD WITHOUT CONTRAST, 02/19/2023 5:38 AM COMPARISON: Prior head CT from February 18, 2023. CLINICAL INDICATIONS: 82 years Female stability; RELEVANT CLINICAL HISTORY: Perform in 6 hours; TECHNIQUE: A series of transaxial computerized tomographic images are obtained from base of skull to vertex without intravenous contrast. Axial whole-head and thin section posterior fossa slices are provided. Reformats: Sagittal and coronal. FINDINGS: Redemonstration of hyperdense blood products along the right superior temporal gyrus. No new intracranial hemorrhage. Patchy white matter hypodensities are again noted in a pattern which is nonspecific but typically related to chronic microvascular ischemic changes. No significant mass effect or midline shift. There is disproportionate prominence of the ventricles relative to the cerebral sulci which may relate to central parenchymal volume loss. No obstructive hydrocephalus. No air-fluid level within the visualized paranasal sinuses. No orbital mass is identified. The mastoids are clear. Skull base and calvarium appear intact. Impression: IMPRESSION: Unchanged subarachnoid hemorrhage tracking along the right superior temporal gyrus. No new hemorrhage. No significant mass effect. White matter hypodensities in a pattern which is nonspecific but typically related to chronic microvascular ischemic changes. ANGIO BRAIN/NECK Narrative: EXAM: CT ANGIO BRAIN/NECK, 02/18/2023 23:22 PM COMPARISON: No previous study is available for comparison. CLINICAL INDICATIONS: 82 years Female Suspected Stroke; TECHNIQUE: A series of transaxial multislice computerized tomographic images are obtained with helical technique from top of aortic arch to vertex following bolus intravenous administration of nonionic contrast. Axial thin section source images, as well as sagittal and coronal thin section reformats, were provided at the scanner. Additional multiplanar and 3D reconstructions were provided. CONTRAST: iohexol (OMNIPAQUE) 350 MG/ML injection 1-171 mL; Route of Administration: Intravenous; Dose: 70 mL. FINDINGS: CT ANGIOGRAM NECK: AORTIC ARCH: Conventional anatomic origin of the great vessels. No significant stenosis. RIGHT CAROTID ARTERY: Common carotid artery is patent and normal in caliber. Internal carotid artery origin at the bifurcation demonstrates atherosclerotic plaque, without significant stenosis. More distal cervical segments of the internal carotid artery are patent and normal in caliber. LEFT CAROTID ARTERY: Common carotid artery is patent and normal in caliber. Internal carotid artery origin at the bifurcation demonstrates atherosclerotic plaque, without significant stenosis. More distal cervical segments of the internal carotid artery are patent and normal in caliber. RIGHT VERTEBRAL ARTERY: Origin is patent. More distal cervical segments are patent and normal in caliber. 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 LEFT VERTEBRAL ARTERY: Origin is patent. More distal cervical segments are patent and normal in caliber. Developmentally dominant and larger in caliber compared to the right vertebral artery. OTHER: No dissection or pseudoaneurysm. Dependent atelectasis. Degenerative changes of the spine. CT ANGIOGRAM HEAD: INTERNAL CAROTID ARTERIES: Atherosclerotic calcifications, without significant stenosis. ANTERIOR CEREBRAL ARTERIES: Patent and normal in caliber. MIDDLE CEREBRAL ARTERIES: Patent and normal in caliber. POSTERIOR CEREBRAL ARTERIES: Patent and normal in caliber. origin of the left TRAUMA DOCTOR is noted. VERTEBRAL ARTERIES: Patent and normal in caliber. 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 BASILAR ARTERY: Patent. No significant stenosis. OTHER: No aneurysm or AVM. ADDITIONAL FINDINGS: No major incidental findings. Impression: IMPRESSION: 1. No significant stenosis of the carotid or vertebral arteries in the neck. 2. No cerebral aneurysm or AVM. I personally viewed and interpreted these images and I have reviewed and approved this report. SSMENT: The patient is a 82 y.o. female with a history of has a past medical history of Stroke. who presents to outpatient stroke clinic for follow-up after recent hospitalization. 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 Started on ASA 81 mg daily and atorvastatin 40mg for secondary stroke risk reduction. TTE and 30 day DELMY was ordered outpatient. Patient in clinic today to discuss mechanism, etiology, pharmacological management, and ongoing stroke prevention. Reviewed pertinent medication related to stroke prevention. Patient with history of TIA, stopped ASA on her own. Found incidental aneurysm at that time. Discussed not self discontinuing ASA in the future. TTE not yet complete at the time of this visit. DELMY without evidence of atrial fibrillation. Plan to complete TTE and if results unremarkable plan to pursue a LOOP recorder. ILR order placed. Blood pressure elevated in clinic (165/72). Will continue to check and record blood pressures and discuss with PCP if blood pressures are consistently elevated >140s. Neurological examination is nonfocal. Self reported word finding difficulties and short term memory loss. Discussed post stroke deficits and recovery. Plan to follow up in 6 months for possible VIJAYA to evaluate memory loss. Discussed natural history, prognosis, and treatment of stroke as well as recovery issues. For secondary stroke prevention, the patient should continue daily anti-platelet medication and vascular risk factor modification. PLAN: ? Order the following tests: ILR ? Anti-platelet medication: continue ASA 81mg daily ? Physical therapy/Speech therapy/Rehabilitation ? To reduce the risk of future ischemic stroke, the patient needs continued vascular risk factor modification. The following are the recommended guidelines*: ? LDL Goal: < 70 mg/dL ? Smoking Cessation ? Diabetes management: Goal <6.5 ? Blood pressure control: should achieve <140/80 mmHg. BP management should aim to achieve longterm control in a reasonable amount of time, taking into consideration the individual patient's requirements and characteristics. ? Weight Management: Goal for BMI is 18.5-24.9 kg/m2. ? Alcohol: No more than 2 drinks/day for men or 1 drink/day for non- women. ? Promote lifestyle modification: weight control, physical activity, moderation of alcohol intake, moderate sodium intake. ? Follow-up with Neurovascular 6 months ADDITIONAL RECOMMENDATIONS: Will defer any further evaluation that may be warranted to patients primary care physician. Thank you for allowing me to participate in the care of Kana Pool. If you have any questions or concerns please contact me. DON Epstein 04/26/2023 1:00 PM I spent about 40 minutes today with patient, reviewing history, and hospital records, MRs, CTs, labs, examining patient, discussing impressions, answering questions and charting. *References: (1) Quincy et al, Stroke 2011, 42:227-276; (2) Foster et al, Stroke 2006, [phone]; (3) Arjun et al, Stroke 2006; 37: 577-617; (4) Dianna Gamboa. WALESKA 2003, [phone]; (5) Foster, et al, Circulation 2001, 103-163; (6) Barton, et al, Stroke 1999, 3900-8388;(7) ATP III. See also http:///nhlbi.nih.gov/guidelines /cholesterol/index.htm documented in this encounter [facility] 04-26-2023 Instructions DON Epstein - 04/26/2023 1:00 PM EDT Please consider LOOP recorder. Call office if you decide to pursue. Blood pressure elevated in clinic. Start checking and record blood pressures and discuss with PCP if blood pressures are consistently elevated >140s/80. Please do not stop taking Aspirin The following attachments cannot be sent through Care Everywhere.Heart Monitoring for a Stroke of Unknown Cause ([facility]) (Colombian)Mediterranean Diet: General Info (Colombian)documented in this encounter [facility] 04-13-2023 Note HNO ID: [id number] Author: López Ng, PT Service: ? Author Type: Physical Therapist Type: Progress Notes Filed: 04/13/2023 2:39 PM Note Text: Pt. Was discharged at initial PT evaluation for s/p CVA due to no complaints and pt. stating she did not feel she needed PT being at her PLOF. Pt. Presents today with new onset of left shoulder tightness with active L shoulder IR reaching behind the back, demonstrates WFL ROM. PT advised pt. To make an appointment with PCP and get a new order specifically for the left shoulder due to the left shoulder pain onset following initial PT evaluation and discharge for CVA. Pt. Denies numbness, weakness, or tingling of the LUE. López Ng, PT, DPT [facility] 04-06-2023 Note HNO ID: [id number] Author: López Ng PT Service: ? Author Type: Physical Therapist Type: Progress Notes Filed: 06/07/2023 8:21 AM Note Text: 06/07/2023 [facility] PHYSICAL THERAPY DISCONTINUANCE OF CARE Plan of Care Period: Start of Care Date: 04/06/23 Last Visit Date: 04/06/2023 Therapy Program: Patient did not return for follow up care as planned. Please refer to last visit note for interventions provided for this episode of care. Assessment: Unable to formally assess goal achievement. Reason for Discontinuation of Care: Patient has not returned to therapy or scheduled additional follow-up appointments. López Ng PT Episode Visit Count: 1 Therapist That Will Accept/Oversee The Plan Of Care: López Ng Start of Care Date: 04/06/23 Onset Date: 03/21/23 Plan of Care Certification Date: 04/06/23 Next Certification Due Date: 04/06/23 Patient Identified by Name and Date of : Yes REHABILITATION AND SPORTS THERAPY PHYSICAL THERAPY EVALUATION PLAN OF CARE: Assessment: Kana Pool presents with diagnosis of s/p CVA that interferes with nothing . She presents with prior level of function. PROMIS? (Patient-Reported Outcomes Measurement Information System) scores were reviewed and physical function domain and self efficacy domain identified as within normal limits. Prognosis for therapy is Excellent due to: current objective clinical presentation, good overall health status, acuteness of condition, good support system/ coping skills . She will benefit from skilled therapy services to meet the goals established for this plan of care as noted below. Goals for Episode of Care: created on 04/06/23 through 04/06/23 Pt. Reports she is at [facility]. Pt. Has no functional goals. Patient Goals: goals met. Planned Interventions, Frequency, and Duration: Current Frequency: 1 visit Duration: 1 visit Total Number of Visits Planned: 1 Planned Treatment Interventions: Self-[facility] management ([id number]) PLAN FOR NEXT VISIT: Pt. is at [facility]. DC Patient demonstrates good understanding of plan of care and treatment. The above goals and plan of care were discussed and agreed upon by patient/family. SUBJECTIVE: Kana Pool is a 82 year old female seen today for for s/p CVA 03/21/23. Pt. reports having aphasia when her took her to the ED. Pt. was flown to [facility]. Diagnosed with CVA. Stayed at [facility] x4 days. Symptoms resolved. She reports she feels just as well as she did prior to CVA. She is working in her garden, walking without LOB, denies dizziness, weakness, or changes in vision. Denies memory problems, speech problems, and denies pain or paresthesias.Pt. does not feel that she needs PT and she is at her baseline of fuction. Patient Goals: goals met. Functional Limitations: nothing Prior Level of Function: Independent without limitations Relevant History Past Relevant Medical Conditions: Cerebral Vascular Accident Home Environment Patient Lives With: Spouse Intake Information: Prescription present Previous Treatment: None Falls Interview: No positive findings with falls interview Pain: Post Treatment Pain Post Treatment Pain Level: 0 PROMIS Scales Higher is Better 04/03/2023 Phys Func - Score 48 (within normal limits) Phys Func - Percentile 42 % Self-Eff Symptom - Score 58 (Average) Self-Eff Symptom - Percentile 79 % T-scores: mean of general population = 50. 5 points is clinically meaningfully difference Percentiles provide an indication of how the patient's score ranks in relation to the general population. Higher percentile rankings indicate better function/quality of life. 50th percentile is the average of the general population and indicates half of respondents had a worse score. OBJECTIVE MEASURES WITH LEVEL OF FUNCTION: Gait Gait: Independent Gait Distance (feet): 100 Gait Device: None Gait Deviations: General Deviations General Deviations/Observations: (none) Gait Observation: unremarkable Education: Education Learning Preferences: Demonstration, Explanation, Performance, Printed Materials Barriers: None Learning/educational needs: Plan of Care Education Provided: Yes, see treatment interventions for education provided Education Provided To: Patient Education Mode/Type: Explanation/Discussion Response to Education/Teach Back: States/Identifies, Return Demonstration TREATMENT: PT Treatment Interventions: Self-Mcc Management Evaluation Self-Mcc Management: 1: *discussed PLOF as compared to current. Pt. reports no change 2: *discussed pt. may request PT order from physician should she begin to notice symptoms of imbalance, weakness, or reduced activity tolerance Skilled Intervention: Reviewed patient specific diagnosis in relation to activities of daily living/home management. Activity progression based on professional judgement. Revie (more content not included)... [facility] 02-26-2023 Miscellaneous Notes March 01, 2023 PID: [id number] Kana Pool [address] [place] [address] Dear Ms. Pool, We are pleased to inform you that the results of your recent breast imaging exam on 02/25/2023 are normal. Early detection of cancer is very important. We also understand recommendations regarding breast cancer screening are controversial. Please discuss with your primary care provider which strategy is best for you and whether a mammogram is right for you. Your imaging studies and report will be kept on file at [facility] as part of your permanent medical record and are available for your continuing care. Thank you for allowing us to help in meeting your health care needs. Sincerely, Dr. Urbano Interpreting Radiologist [facility] (Normal over 40) documented in this encounter [facility] 02-25-2023 Note HNO ID: [id number] Author: CHENTE Marques) Service: ? Author Type: Technologist Type: Progress Notes Filed: 02/25/2023 10:40 AM Note Text: Radiology Service Progress Note PATIENT NAME: Kana Pool DATE OF SERVICE: February 25, 2023 TIME: 10:40 AM PATIENT IDENTITY VERIFICATION COMPLETED USING TWO (2) IDENTIFIERS: Name and Date of confirmed by patient verbally. FALL SCREENING: Has the patient had 2 falls in the last year or 1 fall with injury or currently using an Ambulatory Assistive Device (Walker, Cane, Wheelchair, Crutches, etc.)? No PATIENT GENDER DATA: Female. status: : No status: NO. PATIENT RELEVANT IMPLANT DATA REVIEWED: Not Applicable RADIOLOGY DEPARTMENT: Mammography PERIPHERAL IV DATA: Not applicable SIGNED BY: CHENTE Marques) February 25, 2023 10:40 AM [facility] 02-25-2023 History of Presen t illness Narrative Radiology Service Progress Note PATIENT NAME: Kana Pool DATE OF SERVICE: February 25, 2023 TIME: 10:40 AM PATIENT IDENTITY VERIFICATION COMPLETED USING TWO (2) IDENTIFIERS: Name and Date of confirmed by patient verbally. FALL SCREENING: Has the patient had 2 falls in the last year or 1 fall with injury or currently using an Ambulatory Assistive Device (Walker, Cane, Wheelchair, Crutches, etc.)? No PATIENT GENDER DATA: Female. status: : No status: NO. PATIENT RELEVANT IMPLANT DATA REVIEWED: Not Applicable RADIOLOGY DEPARTMENT: Mammography PERIPHERAL IV DATA: Not applicable SIGNED BY: RT Shelli(Jacky) February 25, 2023 10:40 AM documented in this encounter [facility] documented as of this encounter (statuses as of 07/31/2023) [facility] History of Past illness Narrative* Problem Noted Date Diagnosed Date Resolved Date Prediabetes 03/15/2015 07/19/2023 Last Assessment & Plan: Discussed her tests results. Abnormal mammogram, unspecified 08/17/2013 07/19/2023 Last Assessment & Plan: Patient is having tenderness in the left upper inner quadrant of the breast, Started 2 months ago. 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 Abnormal mammogram, unspecified 08/17/2013 07/19/2023 Last Assessment & Plan: Patient is having tenderness in the left upper inner quadrant of the breast, Started 2 months ago. 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 infarction [facility] 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 infarction [facility] LLQ abdominal pain- Primary Abdominal pain, left lower quadrant [facility] Cryptogenic stroke- Primary Unspecified cerebral artery occlusion with cerebral infarction [facility] Sore throat- Primary Acute pharyngitis URI, acute Acute upper respiratory infections of unspecified site documented in this encounter [facility] Summary Purpose Family History No Family History Records FoundNo Family History Records FoundNo Family History Records Found Advance Directives No Advanced Directives Records FoundDocuments on File Type Date Recorded Patient Extruder Operator Expl anation Advance Directive(s) 12/23/2011 Advance Directive(s) 01/06/2007 Latest Code Status on File Code Status Date Activated Date Inactivated Comments Full Code 02/19/2023 12:54 AM Latest Code Status on File Code Status Date Activated Date Inactivated Comments Full Code 02/19/2023 12:54 AM Reason for Referral Specialty Diagnoses / Procedures Referred By Nimo t Referred To Contact Diagnoses Cryptogenic stroke Procedures CASE REQUEST - EP PROC (EPS, ABLATION, DEVICE) Odette Knott, COUNTER WAITRESS/WAITER-EXECUTIVE SEARCH CONSULTANT [address] [place] [address] Referral ID Status Reason Start Date Expiration Date V isits Requested Visits Authorized [id number] New Request 05/03/2023 05/27/2024 1 1 Health Concerns Infection Onset Date Last Indicated Resolved Time COVID-19 Rule-Out 12/30/2023 12/30/2023 Additional Source Comments INFORMATION SOURCE (unrecogn ized section and content) DATE CREATED AUTHOR AUTHOR'S ORGANIZ ATION 11/01/2023 [facility] DATE CREATED AUTHOR AUTHOR'S ORGANIZ ATION 01/09/2024 [facility] Source Comments (unrecognize d section and content) In the event this informatio n is protected by the Federal Confidentiality of Alcohol and Drug Abuse Patient Records regulations: The Federal rules restrict any use of the information to criminally investigate or prosecute any alcohol or drug abuse patient.[facility] the event this information is protected by the Federal Confidentiality of Alcohol and Drug Abuse Patient Records regulations: The Federal rules restrict any use of the information to criminally investigate or prosecute any alcohol or drug abuse patient.[facility] Center[facility] the event this information is protected by the Federal Confidentiality of Alcohol and Drug Abuse Patient Records regulations: The Federal rules restrict any use of the information to criminally investigate or prosecute any alcohol or drug abuse patient.[facility] Center[facility] the event this information is protected by the Federal Confidentiality of Alcohol and Drug Abuse Patient Records regulations: The Federal rules restrict any use of the information to criminally investigate or prosecute any alcohol or drug abuse patient.[facility] Center[facility] the event this information is protected by the Federal Confidentiality of Alcohol and Drug Abuse Patient Records regulations: The Federal rules restrict any use of the information to criminally investigate or prosecute any alcohol or drug abuse patient.[facility] Care Teams (unrecognized sec tion and content) Clinical Project Leader Relationship Specialty Start Date End Date Allyson Miller MD [address] [place] [phone] PCP - General Family Medicine 02/18/23 Clinical Project Leader Relationship Specialty Start Date End Date Allyson Miller MD [address] [place] [phone] PCP - General Family Medicine 02/18/23 Clinical Project Leader Relationship Specialty Start Date End Date Valerie Marte MD [address] [place], [place] [phone] PCP - General Family Medicine 11/13/20 Clinical Project Leader Relationship Specialty Start Date End Date Allyson Miller MD [address] [place] [phone] PCP - General Family Medicine 02/18/23 Clinical Project Leader Relationship Specialty Start Date End Date Allyson Milelr MD [address] [place] [address] PCP - General Family Medicine 07/31/23 Clinical Project Leader Relationship Specialty Start Date End Date Allyson Miller MD [address] [place] [phone] PCP - General Family Medicine 02/18/23 Clinical Project Leader Relationship Specialty Start Date End Date Valerie Marte MD [address] [place] [id number] PCP - General Family Medicine 11/13/20 07/30/23 Clinical Project Leader Relationship Specialty Start Date End Date Allyson Miller MD [address] [place] [phone] PCP - General Family Medicine 02/18/23 Clinical Project Leader Relationship Specialty Start Date End Date Allyson Miller MD [address] [place] [phone] PCP - General Family Medicine 07/31/23 Reason for Visit (unrecogniz ed section and content) Specialty Diagnoses / Procedures Referred By Nimo gambino Referred To Contact Diagnoses Cryptogenic stroke Cryptogenic stroke [I63.9] Procedures RI INSERTION SUBQ CARDIAC RHYTHM MONITOR W/PRGRMG LOOP SCHED IMPLANT ([id number], [id number]) [facility] [address] [place] [address] [facility] [address] [place] [address] Referral ID Status Reason Start Date Expiration Date Visits Re quested Visits Authorized [id number] 1 1 Reason Comments Received Outside Medical Records Reason Comments Follow-up Reason Comments Sore Throat swollen glands x 1 d ay PRN Active and Recently Administ ered Medications (unrecognized section and content) FOR RECORDS PERTAINING TO PATIENTS WHO ARE OR HAVE BEEN ENROLLED IN A CHEMICAL DEPENDENCY/SUBSTANCEABUSE PROGRAM, SOME INFORMATION MAY BE OMITTED. This clinical summary was aggregated from multiple sources. Caution should be exercised in using it in the provision of clinical care. This summary normalizes information from multiple sources, and as a consequence, information in this document may materially change the coding, format and clinical context of patient data. In addition, data may be omitted in some cases. CLINICAL DECISIONS SHOULD BE BASED ON THE PRIMARY CLINICAL RECORDS. [employer] provides no warranty or guarantee of the accuracy or completeness of information in this document.
[2024-01-14] MEDS: Acetaminophen 500 MG Tablet 1000 MG PO (02:43)
[2024-01-14 02:51] VITALS: BP 118/61; PULSE 78; RESP 15; TEMP 36.1; O2SAT 98
== END 2024-01-14 02:52 | disposition home or self-care (01) ==
LOC: ED 02:24
PROVIDERS: Emergency Provider Emergency Medicine; PCP Family Medicine; Visit Provider Emergency Medicine
DX: M25.512 Pain in left shoulder (principal); I69.311 Memory deficit following cerebral infarction; M25.511 Pain in right shoulder; E78.5 Hyperlipidemia, unspecified; Z90.710 Acquired absence of both cervix and uterus
CPT/HCPCS: 93005; 99282

== ENCOUNTER → 2024-04-18 | Outpatient (CLI) | payer MEDICARE, SELFPAY ==
[2024-04-18 12:33] LABS: Hematocrit 39.2 % (37-47); Hemoglobin 12.2 g/dL (12.0-15.0); Mean Corp Hgb Conc 31.1 g/dL (32-36); Mean Corpuscular Volume 89.9 fL (81-99); Platelet Count 357 K/mm3 (150-450); RBC Distribution Width SD 52.8 fl (35.1-43.9); Red Blood Count 4.36 M/mm3 (4.2-5.4); White Blood Count 8.4 K/mm3 (4.4-11.0)
[2024-04-18 12:59] LABS: Vitamin B12 700 pg/mL (211-911)
[2024-04-18 13:25] LABS: AST(SGOT) 26 U/L (15-37); Alanine Aminotransfer ALT/SGPT 27 U/L (13-56); Albumin, Serum 3.6 g/dL (3.2-5.0); Alkaline Phosphatase 64 U/L (45-117); Anion Gap 8 (5-15); BUN 10 mg/dL (7-18); BUN/Creat Ratio 15.3 RATIO (10-20); Calcium,Total 9.6 mg/dL (8.5-10.1); Chloride 103 mmol/L (98-107); Cholesterol 178 mg/dL (200); Creatinine, Serum 0.66 mg/dL (0.55-1.02); EST Glomerular Filtration Rate 91 mL/min (>60); Est Glom Filt Rate - Afr Amer 111 mL/min (>60); Globulin 3.7 g/dL (2.2-4.2); Glucose 112 mg/dL (74-106); High Density Lipoprotein 91 mg/dL; Potassium 4.4 mmol/L (3.5-5.1); Protein, Total 7.3 g/dL (6.4-8.2); Sodium Level 139 mmol/L (136-145); Thyroid Stim Hormone (TSH) 2.39 uIU/mL (0.358-3.74); Triglycerides 91 mg/dL; Very Low Density Lipoprotein 18 mg/dL (5-40)
== END | disposition home or self-care (01) ==
PROVIDERS: PCP Family Medicine; Referring Provider Psychiatry & Neurology Neurology; Visit Provider Psychiatry & Neurology Neurology
DX: G31.84 Mild cognitive impairment of uncertain or unknown etiology (principal); I10 Essential (primary) hypertension; E78.5 Hyperlipidemia, unspecified
CPT/HCPCS: 36415; 80053; 80061; 81241; 82248; 82607; 82746; 84425; 84443; 85027

== ENCOUNTER 2024-06-17 13:19 | Emergency (ER) | payer MEDICARE, SELFPAY ==
[2024-06-17 13:20] VITALS: BP 121/73; PULSE 83; RESP 18; TEMP 35.6; O2SAT 93; BMI 23.7
--- NOTE | 2024-06-17 13:38 | EX.ED.VIS.UR ---
HPI HPI - URI History of Present Illness Chief Complaint: Nausea/Vomiting Narrative Narrative: 84-year-old female presenting with nausea/vomiting, chills, sweats. Patient's currently diagnosed with COVID. Patient herself became ill this morning. She has not been able to hold down any food or fluids today. She denies any abdominal pain. No chest pain, palpitations, shortness of breath. No cough or congestion. She has not had a fever. ROS ROS ED Constitutional Constitutional ED: Reports chills and sweats; Denies fever(s) Eyes Eyes: Denies blurry vision or change in vision ENT ENT ED: Denies ear pain or sore throat Cardiovascular Cardiovascular: Denies chest pain, palpitations or racing heartbeat Respiratory/Chest Respiratory/Chest: Denies cough, dyspnea or sputum Gastrointestinal Gastrointestinal: Reports nausea and vomiting; Denies abdominal pain, constipation or diarrhea Genitourinary Genitourinary ED: Denies dysuria, hematuria or urinary frequency Musculoskeletal Musculoskeletal: Reports myalgias; Denies arthralgias or neck pain Integumentary Denies abscess, Abrasions or rash Neurologic Neurologic: Denies headache(s), paresthesias or weakness Psychiatric Psychiatric: Denies anxiety, depression, suicidal ideation or suicidal thoughts Endocrine Endocrinology: Denies polydipsia or polyuria [facility] Medical History Hyperlipemia Brain aneurysm Home Medications ?Medication ?Instructions ?Recorded ?Last Taken ?Type tolterodine 4 mg capsule,extended 4 mg PO DAILY 01/15/17 07/18/19 History release 24 hr (Detrol LA) aspirin 81 mg chewable tablet 81 mg PO DAILY@0800 ##30 07/20/19 Unknown Rx calcium polycarbophil 625 mg tablet 625 mg PO DAILY 12/06/20 Unknown History Vitamin D3 5,000 iu PO DAILY 12/10/20 Unknown History ondansetron 4 mg disintegrating 8 mg (2 x 4 mg) PO Q8H PRN PRN 07/06/23 Unknown Rx tablet Nausea #20 tabs meclizine 25 mg tablet 25 mg PO TID PRN dizziness #30 tabs 10/23/23 Unknown Rx atorvastatin 40 mg tablet 40 mg PO QHS 11/30/23 Unknown History coenzyme Q10 75 mg capsule (Ultra 75 mg PO DAILY 04/18/24 Unknown History CoQ10) ondansetron 4 mg disintegrating 4 mg PO Q8H PRN 04/18/24 Unknown History tablet ondansetron 4 mg disintegrating 4 mg PO Q8H PRN PRN Nausea #10 tabs 06/17/24 Unknown Rx tablet Allergy/AdvReac Type Severity Reaction Status Date / Time bee venom protein (honey bee) Allergy Anaphylaxis Verified 06/17/24 13:20 venom-wasp Allergy Anaphylaxis Verified 06/17/24 13:20 Family History Other Cancer Surgical History H/O: hysterectomy Social History household members: spouse Smoking Status: Never smoker EXAM Physical Exam Const Vital Signs: 06/17/24 13:20 06/17/24 15:19 06/17/24 15:52 Temperature 96.1 F L 97.1 F L Temperature Source Temporal Pulse Rate 83 84 84 Respiratory Rate 18 18 18 Blood Pressure 121/73 H 113/60 113/60 Blood Pressure Mean 89 77 77 Pulse Ox 93 96 96 Oxygen Delivery Method Room Air Room Air Positive well nourished General Appearance ED: NAD; Negative for pallor HEENT Reports moist mucous membranes Throat: posterior oropharynx normal Eyes PERRL and EOMs intact bilaterally Neck no lymphadenopathy and supple Resp normal respiratory effort and clear to auscultation bilaterally Cardio Rate: regular rate Rhythm: regular rhythm GI non-tender and non-distended Extremity normal to inspection Neuro oriented x3 and CN's II-XII intact bilaterally Motor Exam: general weakness Psych mental status grossly normal Skin General Skin Exam: Negative for jaundice or pallor MDM MDM MDM Narrative Medical decision making narrative: Patient presenting with nausea, vomiting, chills, body aches. Patient's currently diagnosed with COVID-19. I feel it is likely that she has COVID given that her does. IV line was established. She was given IV fluids and Zofran. CBC was obtained to assess white blood cell count, hemoglobin, platelets. BMP to assess renal function, electrolytes. I do not feel COVID testing is necessary given that the has COVID. I will treat her symptomatically. CBC shows normal white blood cell count at 9.9. Hemoglobin 12.0. Platelets are 249. Renal function and electrolytes within normal limits. LFTs are normal. She is feeling much better after IV fluids and Zofran. I feel she stable for discharge home. Impression: 1. COVID-19 2. Nausea/vomiting Lab Data Attestation: I reviewed the patient's lab results. Labs: Laboratory Results - last 24 hr 06/17/24 13:43 WBC 9.9 RBC 4.25 Hgb 12.0 Hct 37.8 MCV 88.9 MCH 28.2 MCHC 31.7 L RDW Std Deviation 47.3 H RDW Coeff of [place] 14.5 Plt Count 249 MPV 9.1 Immature Gran % (Auto) 0.600 Neut % (Auto) 79.4 H Lymph % (Auto) 9.9 L [place] % (Auto) 9.0 Eos % (Auto) 0.6 Baso % (Auto) 0.5 Absolute Neuts (auto) 7.8 H Absolute Lymphs (auto) 0.98 Nucleated RBC % 0 Sodium 136 Potassium 3.7 Chloride 102 Carbon Dioxide 28.0 Anion Gap 6 BUN 9 Creatinine 0.55 Estim Creat Clear Calc 38.80 Est GFR (MDRD) Af Amer 135 Est GFR (MDRD) Non-Af 112 BUN/Creatinine Ratio 16.4 Glucose 164 H Calcium 8.7 Total Bilirubin 0.40 AST 32 ALT 34 Alkaline Phosphatase 62 Total Protein 6.8 Albumin 3.6 Globulin 3.2 Albumin/Globulin Ratio 1.1 Radiography Diagnostic Testing: Clinical Impression(s) from Imaging Studies Chest X-Ray 06/17/24 14:14 IMPRESSION: No acute thoracic pathology. Electronically Signed: Ambrocio Contreras MD at 14:30 EDT , Discharge Plan Triage Chief Complaint: Nausea/Vomiting ED Provider: Anatoly Arreola Dx/Rx/DC Orders Instructions: Coronavirus Disease 2019 (COVID-19): Overview, ED Vomiting (Adult) Prescriptions: New ondansetron 4 mg tablet,disintegrating 4 mg PO Q8H PRN PRN (Reason: Nausea) Qty: 10 0RF No Action ondansetron 4 mg tablet,disintegrating 4 mg PO Q8H PRN Ultra CoQ10 75 mg capsule 75 mg PO DAILY tolterodine [Detrol LA] 4 MG capsule,extended release 24hr 4 mg PO DAILY aspirin 81 MG tablet,chewable 81 mg PO DAILY@0800 Qty: 30 0RF calcium polycarbophil 625 MG tablet 625 mg PO DAILY Vitamin D3 5,000 iu PO DAILY atorvastatin 40 mg tablet 40 mg PO QHS ondansetron [ondansetron] 4 mg tablet,disintegrating 8 mg PO Q8H PRN PRN (Reason: Nausea) Qty: 20 0RF meclizine 25 mg tablet 25 mg PO TID PRN (Reason: dizziness) Qty: 30 0RF Primary Care Provider: Allyson Miller Referrals: Allyson Miller MD [Primary Care Provider] - Print Language: Amharic Disposition Disposition: Home, Self Care Discharge Date/Time: 06/17/24 15:53
[2024-06-17] MEDS: Ondansetron 4 MG/2 ML Vial IV (13:45)
[2024-06-17] MEDS: 0.9% Normal Saline (1000mL) 1,000 ML 999 ML IV (13:45)
[2024-06-17 13:56] LABS: Absolute Lymphocyte Count 0.98 X10^3/uL (0.83-4.51); Absolute Neutrophil Count 7.8 X10^3/uL (2.0-7.7); Basophil# 0.05 X10^3/uL; Basophil% 0.5 % (0-1); Eosinophil# 0.06 X10^3/uL; Eosinophils% 0.6 % (0-5); Hematocrit 37.8 % (37-47); Lymphocyte # 0.98 X10^3/ul (0.83-4.51); Lymphocyte % 9.9 % (19-41); Mean Corp Hgb Conc 31.7 g/dL (32-36); Mean Corpuscular Hgb 28.2 pg (27.0-32.0); Mean Corpuscular Volume 88.9 fL (81-99); Mean Platelet Vol. 9.1 fl (6.2-12.0); Monocyte# 0.89 X10^3/uL; NRBC Flagged by Analyzer 0 % (0-5); Neutrophil # 7.81 X10^3/uL (2.7-7.7); Neutrophil % 79.4 % (47-70); Platelet Count 249 K/mm3 (150-450); RBC Distribution Width CV 14.5 % (11.6-14.6); RBC Distribution Width SD 47.3 fl (35.1-43.9); Red Blood Count 4.25 M/mm3 (4.2-5.4); White Blood Count 9.9 K/mm3 (4.4-11.0)
[2024-06-17 14:09] LABS: ALB/GLOB Ratio 1.1 RATIO (0.9-2.4); AST(SGOT) 32 U/L (15-37); Alanine Aminotransfer ALT/SGPT 34 U/L (13-56); Albumin, Serum 3.6 g/dL (3.2-5.0); Alkaline Phosphatase 62 U/L (45-117); Anion Gap 6 (5-15); BUN 9 mg/dL (7-18); BUN/Creat Ratio 16.4 RATIO (10-20); Calcium,Total 8.7 mg/dL (8.5-10.1); Chloride 102 mmol/L (98-107); Creatinine, Serum 0.55 mg/dL (0.55-1.02); EST Glomerular Filtration Rate 112 mL/min (>60); Est Glom Filt Rate - Afr Amer 135 mL/min (>60); Globulin 3.2 g/dL (2.2-4.2); Glucose 164 mg/dL (74-106); Potassium 3.7 mmol/L (3.5-5.1); Protein, Total 6.8 g/dL (6.4-8.2); Sodium Level 136 mmol/L (136-145)
--- NOTE | 2024-06-17 14:14 | RAD_ITS ---
STUDY: X-RAY CHEST REASON FOR EXAM: Female, 84 years old. COVID TECHNIQUE: Frontal view of the chest COMPARISON: 10/23/2023 FINDINGS: The lungs are clear. There are no pleural effusions. There is no pneumothorax. The heart is normal in size. Again noted is a cardiac loop recorder. The visualized osseous structures are within normal limits. RAD/Chest 1 View (Portable) IMPRESSION: No acute thoracic pathology. Electronically Signed: Ambrocio Contreras MD at 14:30 EDT ,
[2024-06-17 15:19] VITALS: BP 113/60; PULSE 84; RESP 18; O2SAT 96
[2024-06-17 15:52] VITALS: BP 113/60; PULSE 84; RESP 18; TEMP 36.2; O2SAT 96
== END 2024-06-17 15:53 | disposition home or self-care (01) ==
PROVIDERS: Emergency Provider Student in an Organized Health Care Education/Training Program; PCP Family Medicine; Visit Provider Student in an Organized Health Care Education/Training Program
DX: U07.1 COVID-19 (principal); E78.5 Hyperlipidemia, unspecified; R11.2 Nausea with vomiting, unspecified
CPT/HCPCS: 71045; 80053; 85025; 96361; 96374; 99282; A4216; J2405

== ENCOUNTER 2024-09-10 21:02 | Observation (INO) | payer MEDICARE, SELFPAY ==
[2024-09-10] VITALS (7 sets, daily range): BP systolic 142–176; BP diastolic 63–124; PULSE 96–110; RESP 16–20; TEMP 37; O2SAT 97–98; BMI 21.2
--- NOTE | 2024-09-10 21:08 | RAD_ITS ---
INDICATION: Neuro deficit, acute, stroke suspected EXAMINATION/TECHNIQUE: X-RAY - XR Chest 1 View AP portable. 10:10 PM COMPARISON: Prior study dated: 06/17/2024 FINDINGS: LINES/DEVICES: Device overlying the left chest. LUNGS: No consolidation. No pneumothorax. MEDIASTINUM: The aorta is atherosclerotic. CARDIAC SILHOUETTE: Not enlarged. BONES AND SOFT TISSUES: No acute abnormalities. RAD/Chest 1 View IMPRESSION: No evidence of active intrathoracic disease. Electronically Signed: Joanne Nation MD at 22:42 EDT ,
--- NOTE | 2024-09-10 21:08 | CT_ITS ---
We are attempting to reach an attending provider to discuss findings. An addendum with communication details will be sent when the communication is complete. EXAM: CT ANGIOGRAPHY HEAD AND NECK WITH INTRAVENOUS CONTRAST CLINICAL INDICATION: Neuro deficit, acute, stroke suspected TECHNIQUE: [place] [facility] [place]/head and neck CT angiography protocol performed with intravenous contrast. This CT exam was performed using one or more of the following dose reduction techniques: automated exposure control, adjustment of the mA and/or kV according to patient size, and/or use of iterative reconstruction technique. MIP reconstructed images were created and reviewed. CONTRAST: IV 100mL [id number] RADIATION DOSE: CTDIvol = 15.90 mGy, DLP = 516.86 mGy-cm COMPARISON: No relevant prior studies available. FINDINGS: HEAD: RIGHT ANTERIOR CEREBRAL ARTERY: Unremarkable. No occlusion or significant stenosis. Anterior communicating artery is present. No aneurysm. RIGHT MIDDLE CEREBRAL ARTERY: Unremarkable. No occlusion or significant stenosis. No aneurysm. RIGHT POSTERIOR CEREBRAL ARTERY: Unremarkable. No occlusion or significant stenosis. No aneurysm. RIGHT INTRACRANIAL INTERNAL CAROTID ARTERY: Unremarkable. No significant stenosis. No dissection or occlusion. RIGHT INTRACRANIAL VERTEBRAL ARTERY: Nonvisualized distal right vertebral artery may suggest slow flow stenosis or occlusion. LEFT ANTERIOR CEREBRAL ARTERY: Unremarkable. No occlusion or significant stenosis. No aneurysm. LEFT MIDDLE CEREBRAL ARTERY: Unremarkable. No occlusion or significant stenosis. No aneurysm. LEFT POSTERIOR CEREBRAL ARTERY: Unremarkable. No occlusion or significant stenosis. No aneurysm. LEFT INTRACRANIAL INTERNAL CAROTID ARTERY: Unremarkable. No significant stenosis. No dissection or occlusion. LEFT INTRACRANIAL VERTEBRAL ARTERY: Unremarkable. No significant stenosis. No dissection or occlusion. BASILAR ARTERY: Unremarkable. No occlusion or significant stenosis. No aneurysm. OTHER VASCULATURE: There is calcified plaque formation of the right cavernous carotid artery, with a mild stenosis (less than 50%). ALL ABOVE CRITERIA BY NASCET. There is calcified plaque formation of the left cavernous carotid artery, with a mild stenosis (less than 50%). ALL ABOVE CRITERIA BY NASCET. No vascular malformation. NECK: RIGHT COMMON CAROTID ARTERY: Unremarkable. No significant stenosis. No dissection or occlusion. RIGHT EXTRACRANIAL INTERNAL CAROTID ARTERY: There is mild atherosclerotic plaque formation of the origin of the right internal carotid artery with less than 50% cross sectional diameter stenosis. ALL ABOVE CRITERIA BY NASCET. No dissection or occlusion. RIGHT EXTERNAL CAROTID ARTERY: Unremarkable. No occlusion. RIGHT EXTRACRANIAL VERTEBRAL ARTERY: Unremarkable. No significant stenosis. No dissection or occlusion. LEFT COMMON CAROTID ARTERY: Unremarkable. No significant stenosis. No dissection or occlusion. LEFT EXTRACRANIAL INTERNAL CAROTID ARTERY: There is mild atherosclerotic plaque formation of the origin of the left internal carotid artery with less than 50% cross sectional diameter stenosis. ALL ABOVE CRITERIA BY NASCET. No dissection or occlusion. LEFT EXTERNAL CAROTID ARTERY: Unremarkable. No occlusion. LEFT EXTRACRANIAL VERTEBRAL ARTERY: Unremarkable. No significant stenosis. No dissection or occlusion. BRACHIOCEPHALIC AND SUBCLAVIAN ARTERIES: Unremarkable as visualized. No occlusion or significant stenosis. LUNG APICES: Unremarkable as visualized. HEAD and NECK: BONES/JOINTS: Unremarkable. No discrete lytic or blastic abnormalities. SOFT TISSUES: Unremarkable. OTHER FINDINGS: Post-processing of the images was performed, with axial imaging and 3D reconstruction. MIPS images were obtained. CAROTID STENOSIS REFERENCE USING NASCET CRITERIA: % ICA stenosis = (1 - narrowest ICA diameter/diameter of distal cervical ICA) x 100. Mild - <50% stenosis. Moderate - 50-69% stenosis. Severe - 70-94% stenosis. Near occlusion - 95-99% stenosis. Occluded - 100% stenosis. CT/STROKE CTA Head AND Neck W/Con IMPRESSION: 1. Nonvisualized distal right vertebral artery may suggest slow flow stenosis or occlusion. 2. There is mild atherosclerotic plaque formation of the origin of the right internal carotid artery with less than 50% cross sectional diameter stenosis. ALL ABOVE CRITERIA BY NASCET. 3. There is mild atherosclerotic plaque formation of the origin of the left internal carotid artery with less than 50% cross sectional diameter stenosis. ALL ABOVE CRITERIA BY NASCET. 4. There is calcified plaque formation of the right cavernous carotid artery, with a mild stenosis (less than 50%). ALL ABOVE CRITERIA BY NASCET. 5. There is calcified plaque formation of the left cavernous carotid artery, with a mild stenosis (less than 50%). ALL ABOVE CRITERIA BY NASCET. Electronically Signed: Daren Mccullough MD at 21:36 EDT ,
--- NOTE | 2024-09-10 21:08 | CT_ITS ---
We are attempting to reach an attending provider to discuss findings. An addendum with communication details will be sent when the communication is complete. STUDY: CT BRAIN WITHOUT CONTRAST REASON FOR EXAM: Female, 84 years old. Neuro deficit, acute, stroke suspected Individualized dose optimization techniques were used for this CT. TECHNIQUE: Transaxial CT imaging of the brain was performed without administration of intravenous contrast material. COMPARISON: 10/23/2023 FINDINGS: There are calcifications around the carotid artery. These are noted in the cavernous carotid arteries. Normal calvarium. Normal soft tissues. There is mild cerebral atrophy with widening of the extra-axial spaces and ventricular dilatation. There are areas of decreased attenuation within the white matter tracts of the supratentorial brain, consistent with microvascular disease changes. Normal basal ganglia and thalami. Normal brainstem. There is mild cerebellar atrophy. There is no intracranial hemorrhage. There are no findings of an acute ischemic infarction. Normal visualized paranasal sinuses. ASPECTS Score for Acute Strokes: 08/31 CT/STROKE Brain/Head without Cont IMPRESSION: There are no acute findings. Chronic involutional changes of the brain. Electronically Signed: Daren Mccullough MD at 21:20 EDT ,
--- NOTE | 2024-09-10 21:09 | ED.VIS.STROK ---
HPI History of Present Illness Chief Complaint: Stroke Alert Narrative Narrative: 84-year-old female past medical history of previous stroke, presents via EMS with slurred speech and right pronator drift. Per EMS, 2 hours ago she started slurring her speech and having problems with expressive aphasia. They noticed a right pronator drift on their examination. Prehospital stroke team called prior to arrival. In discussion with her , he states that they were actually coming home and driving, and while she was in the car, she states that her right arm was numb. He states last known well time was probably around [address] [facility] Medical History Hyperlipemia Brain aneurysm Home Medications ?Medication ?Instructions ?Recorded ?Last Taken ?Type tolterodine 4 mg capsule,extended 4 mg PO DAILY 01/15/17 07/18/19 History release 24 hr (Detrol [place]) aspirin 81 mg chewable tablet 81 mg PO DAILY@0800 ##30 07/20/19 Unknown Rx Vitamin D3 5,000 iu PO DAILY 12/10/20 Unknown History atorvastatin 40 mg tablet 40 mg PO QHS 11/30/23 Unknown History coenzyme Q10 75 mg capsule (Ultra 75 mg PO DAILY 04/18/24 Unknown History CoQ10) donepezil 10 mg tablet 10 mg PO QAM #30 tabs 08/31/24 Unknown Rx donepezil 5 mg tablet 5 mg PO QAM #30 tabs 08/31/24 Unknown Rx Allergy/AdvReac Type Severity Reaction Status Date / Time bee venom protein (honey bee) Allergy Anaphylaxis Verified 08/31/24 14:40 venom-wasp Allergy Anaphylaxis Verified 08/31/24 14:40 Family History Other Cancer Surgical History H/O: hysterectomy Social History household members: spouse Smoking Status: Never smoker ROS ROS ED ROS Narrative Review of systems mildly limited secondary to patient condition. Positive expressive aphasia. EXAM Physical Exam Narrative Exam Narrative: Afebrile. Vital signs noted. Cardiovascular examination reveals a mild tachycardia. Lungs are clear to auscultation bilaterally. Abdomen soft nontender with normoactive bowel sounds. Neurological examination shows mild dysarthria with slight right pronator drift and questionable right facial droop. She has an expressive aphasia as well. Const Vital Signs: 09/10/24 21:02 09/10/24 21:02 09/10/24 21:08 Temperature 98.6 F Temperature Source Oral Pulse Rate 110 H 110 H 103 H Respiratory Rate 18 18 20 H Blood Pressure 162/88 H 162/88 H 176/75 H Blood Pressure Mean 112 112 108 Pulse Ox 98 98 97 Oxygen Delivery Method Room Air Room Air Room Air 09/10/24 21:25 09/10/24 21:38 09/10/24 21:41 Temperature Temperature Source Pulse Rate 102 H 101 H Respiratory Rate 18 18 Blood Pressure 160/124 H 160/124 H Blood Pressure Mean 136 136 Pulse Ox 98 97 97 Oxygen Delivery Method Room Air Room Air Room Air 09/10/24 22:41 09/10/24 23:00 09/11/24 00:00 Temperature Temperature Source Pulse Rate 96 96 112 H Respiratory Rate 16 16 18 Blood Pressure 142/63 H 142/63 H 137/66 H Blood Pressure Mean 89 89 89 Pulse Ox 97 98 96 Oxygen Delivery Method Room Air Room Air Room Air 09/11/24 01:00 09/11/24 01:07 09/11/24 01:08 Temperature 99.0 F 99.0 F Temperature Source Oral Pulse Rate 105 H 107 H 105 H Respiratory Rate 16 16 18 Blood Pressure 148/73 H 148/73 H 148/73 H Blood Pressure Mean 98 98 98 Pulse Ox 96 96 96 Oxygen Delivery Method Room Air Room Air NIHSS NIHSS Initial: 1a Level of Consciousness: 0 1b LOC Questions (Score 2 if aphasic/stupor): 2 1c LOC Commands (Only score 1st attempt): 0 3 Visual: 0 4 Facial Palsy: 1 9 Best Language: 1 10 Dysarthria (mute, coma=2, intubated=UN): 1 Total Score: 5 MDM MDM MDM Narrative Medical decision making narrative: Prehospital stroke team initiated. Her NIH stroke scale was 4 for expressive aphasia, mild dysarthria/slurred speech, 1 point for pronator drift, and 1 for questionable right sided facial droop. I received a call from the radiologist regarding the CT of the brain without contrast and there is no acute process or hemorrhage. Additionally, I discussed with the radiologist the CTA findings which were negative, there is no large vessel occlusion. In discussion with the stroke neurologist, Dr. Gallegos, on his examination, and discussion with the , she is outside the window for TNK, and additionally she had very similar symptoms previously when she did receive TNK and had intracranial hemorrhage. Hence, she was not administered TNK as it was thought that perhaps in her differential instead of stroke she may have some sort of seizure activity, or infectious process causing delirium in the symptoms. Per RN, there was a period of time where her symptoms improved significantly and she was back to baseline, but then they restarted again. EKG was obtained and interpreted by myself independently as normal sinus rhythm at 96 bpm without ectopy or acute ST changes. No STEMI. I reviewed her laboratory work and she has normal white count of 8.2, hemoglobin 12.6, hematocrit 38.7, platelet count normal at 340. Coagulation studies are negative with a PTT only slightly elevated at 38. Glucose is elevated at 128 but she has normal anion gap of 7. Sodium normal at 142 with potassium slightly low at 3.3. High-sensitivity troponin is less than 3. I reviewed and interpreted her chest x-ray in 1 view and see no acute process, no pneumonia. I reviewed the radiology report which confirms my independent interpretation. Additionally, I reviewed the urinalysis and there is no evidence of infection. After discussion with the teleneurologist, he did recommend observation for MRI of the brain. I will discuss patient with the hospitalist, Dr. Lambert. Disposition is assigned observation. Patient is in stable condition. History & Record Review Discussion w/independent historian: Family (Spouse) Additional record(s) reviewed:: Prior ED visit Lab Data Attestation: I reviewed the patient's lab results. Labs: Laboratory Results - last 24 hr 09/10/24 09/10/24 20:50 21:50 WBC 8.2 RBC 4.29 Hgb 12.6 Hct 38.7 MCV 90.2 MCH 29.4 MCHC 32.6 RDW Std Deviation 52.4 H RDW Coeff of [place] 15.9 H Plt Count 340 MPV 9.2 Immature Gran % (Auto) 0.400 Neut % (Auto) 61.1 Lymph % (Auto) 28.6 Bremer % (Auto) 7.2 Eos % (Auto) 2.3 Baso % (Auto) 0.4 Absolute Neuts (auto) 5.0 Absolute Lymphs (auto) 2.34 Nucleated RBC % 0 PT 14.8 INR 1.2 APTT 38.0 H Sodium 142 Potassium 3.3 L Chloride 107 Carbon Dioxide 29.0 Anion Gap 7 BUN 11 Creatinine 0.88 Estim Creat Clear Calc 35.27 Est GFR (MDRD) Af Amer 79 Est GFR (MDRD) Non-Af 65 BUN/Creatinine Ratio 12.6 Glucose 128 H Calcium 9.1 Troponin I High Sens < 3 L Urine Color Straw Urine Clarity Clear Urine pH 8.0 Ur Specific [place] 1.010 Urine Protein Negative Urine Glucose (UA) Normal Urine Ketones Negative Urine Occult Blood Negative Urine Nitrite Negative Urine Bilirubin Negative Urine Urobilinogen Normal Ur Leukocyte Esterase Negative Urine RBC 0 SEEN Urine WBC 0 SEEN Ur Squamous Epith Cells 0 SEEN Urine Bacteria 0 SEEN Urine Mucus 0 SEEN Radiography Diagnostic Testing: Clinical Impression(s) from Imaging Studies Brain CT 09/10/24 21:08 IMPRESSION: There are no acute findings. Chronic involutional changes of the brain. Electronically Signed: Daren Mccullough MD at 21:20 EDT , ADDENDUM: 09/10/24 2141 IMPRESSION: There are no acute findings. Chronic involutional changes of the brain. N.B. : The above Results were Read Back by Daren Mccullough MD to Patrick English MD, and understanding confirmed on 09/10/2024 21:34:49 (ET). Electronically Signed: Daren Mccullough MD at 21:20 EDT , Chest X-Ray 09/10/24 21:08 IMPRESSION: No evidence of active intrathoracic disease. Electronically Signed: Joanne Nation MD at 22:42 EDT , Head/Neck CTA 09/10/24 21:08 IMPRESSION: 1. Nonvisualized distal right vertebral artery may suggest slow flow stenosis or occlusion. 2. There is mild atherosclerotic plaque formation of the origin of the right internal carotid artery with less than 50% cross sectional diameter stenosis. ALL ABOVE CRITERIA BY NASCET. 3. There is mild atherosclerotic plaque formation of the origin of the left internal carotid artery with less than 50% cross sectional diameter stenosis. ALL ABOVE CRITERIA BY NASCET. 4. There is calcified plaque formation of the right cavernous carotid artery, with a mild stenosis (less than 50%). ALL ABOVE CRITERIA BY NASCET. 5. There is calcified plaque formation of the left cavernous carotid artery, with a mild stenosis (less than 50%). ALL ABOVE CRITERIA BY NASCET. Electronically Signed: Daren Mccullough MD at 21:36 EDT , ADDENDUM: 09/10/24 2145 IMPRESSION: 1. Nonvisualized distal right vertebral artery may suggest slow flow stenosis or occlusion. 2. There is mild atherosclerotic plaque formation of the origin of the right internal carotid artery with less than 50% cross sectional diameter stenosis. ALL ABOVE CRITERIA BY NASCET. 3. There is mild atherosclerotic plaque formation of the origin of the left internal carotid artery with less than 50% cross sectional diameter stenosis. ALL ABOVE CRITERIA BY NASCET. 4. There is calcified plaque formation of the right cavernous carotid artery, with a mild stenosis (less than 50%). ALL ABOVE CRITERIA BY NASCET. 5. There is calcified plaque formation of the left cavernous carotid artery, with a mild stenosis (less than 50%). ALL ABOVE CRITERIA BY NASCET. N.B. : The above Results were Read Back by Daren Mccullough MD to Patrick English MD, and understanding confirmed on 09/10/2024 21:38:24 (ET). Electronically Signed: Daren Mccullough MD at 21:36 EDT , Management Discussion w/another healthcare provider: Hospitalist, [employer] and Radiologist Discharge Plan Dx/Rx/DC Orders Clinical Impression: Right arm numbness, Difficulty with speech Disposition Disposition: Acute Care Hospital [facility]
[2024-09-10 21:45] LABS: Absolute Lymphocyte Count 2.34 X10^3/uL (0.83-4.51); Basophil# 0.03 X10^3/uL; Basophil% 0.4 % (0-1); Eosinophil# 0.19 X10^3/uL; Eosinophils% 2.3 % (0-5); Hematocrit 38.7 % (37-47); Hemoglobin 12.6 g/dL (12.0-15.0); Lymphocyte # 2.34 X10^3/ul (0.83-4.51); Lymphocyte % 28.6 % (19-41); Mean Corp Hgb Conc 32.6 g/dL (32-36); Mean Corpuscular Hgb 29.4 pg (27.0-32.0); Mean Corpuscular Volume 90.2 fL (81-99); Mean Platelet Vol. 9.2 fl (6.2-12.0); Monocyte# 0.59 X10^3/uL; Monocyte% 7.2 % (0-10); NRBC Flagged by Analyzer 0 % (0-5); Neutrophil # 4.99 X10^3/uL (2.7-7.7); Neutrophil % 61.1 % (47-70); Platelet Count 340 K/mm3 (150-450); RBC Distribution Width CV 15.9 % (11.6-14.6); RBC Distribution Width SD 52.4 fl (35.1-43.9); Red Blood Count 4.29 M/mm3 (4.2-5.4); White Blood Count 8.2 K/mm3 (4.4-11.0)
[2024-09-10 21:49] LABS: POSITIVE COUNT NO; POSITIVE DIFFERENTIAL NO; POSITIVE MORPHOLOGY NO
[2024-09-10 21:57] LABS: International Normalized Ratio 1.2; Prothrombin Time (Protime)PT. 14.8 SECONDS (11.7-14.9)
[2024-09-10 22:11] LABS: Anion Gap 7 (5-15); BUN 11 mg/dL (7-18); BUN/Creat Ratio 12.6 RATIO (10-20); Calcium,Total 9.1 mg/dL (8.5-10.1); Chloride 107 mmol/L (98-107); Creatinine, Serum 0.88 mg/dL (0.55-1.02); EST Glomerular Filtration Rate 65 mL/min (>60); Est Glom Filt Rate - Afr Amer 79 mL/min (>60); Estimated Creatinine Clearance 35.27 ml/min; Glucose 128 mg/dL (74-106); Potassium 3.3 mmol/L (3.5-5.1); Sodium Level 142 mmol/L (136-145); Troponin-I HS < 3 pg/mL (3.0-54.0)
[2024-09-10 22:13] LABS: Bacteria 0 SEEN /hpf (None Seen); Mucous, Urine 0 SEEN /hpf (<or=2+); Red Blood Cells-Urine 0 SEEN /hpf (0-5); Squamous Epithelial Cells - UA 0 SEEN /hpf (5-10); White Blood Cells 0 SEEN /hpf (0-5)
[2024-09-10 22:32] LABS: Color, Urine Straw (Yellow); Glucose, Dipstick Normal (Normal); Ketone-Dipstick Negative (Negative); Leukocyte Esterase-Dipstick Negative /ul (Negative); Nitrite-Dipstick Negative (Negative); Occult Blood-Urine Negative /ul (Negative); Protein-Dipstick Negative (Negative); Urine Bilirubin Dipstick Negative (Negative); Urine Clarity Clear (Clear); Urine Urobilinogen Normal (Normal)
[2024-09-11] VITALS (12 sets, daily range): BP systolic 132–148; BP diastolic 65–73; PULSE 72–112; RESP 14–19; TEMP 36.3–37.2; O2SAT 95–99; BMI 21.2
--- NOTE | 2024-09-11 01:02 | PCM.HP.STD ---
HPI - General General Date of Admission: 09/11/24 Date of Service: 09/11/24 Chief Complaint: Slurred Speech. HPI Narrative KANA POOL, is a 84 F with a past medical history of hyperlipidemia, history of CVA; with TNK and subsequent head bleed apparently due to aneurysm, mild dementia; on donepezil, overactive bladder, history of hysterectomy and OA who presents to [facility] ER complaining of slurred speech. Ms. Pool reports her symptoms began approximately 2 hours prior to arrival with the abrupt-onset of slurred speech with expressive aphasia. EMS was activated and they noted Right pronator drift so the stroke team was activated prior to arrival. Earlier in the day her noted she had complained of numbness in her Right arm around 4:30 PM yesterday while they were driving home in the car. According to the ER physician she had a similar presentation with her last CVA. There was no report of fever, chills, nausea, vomiting, diarrhea, constipation, abdominal pain, chest pain, SOB or headache. In the ER her CTA of the head and neck were negative for acute pathologic changes other than lack of contrast in her distal Right vertebral artery suggesting possible low-flow, stenosis or occlusion with mild (less than 50%) atherosclerotic plaque of the origin of the Left and Right internal carotid arteries complicated by laboratory evidence of hypokalemia with potassium of 3.3 mmol/L present on admission and she was then admitted to the PCU under observation status for ongoing care for stay that is expected to be less than 2 midnights. [facility] Medical History (Updated 09/11/24 @ 01:[address] Domenic Valdes, DO) Hyperlipemia Brain aneurysm Home Medications ?Medication ?Instructions ?Recorded ?Last Taken ?Type tolterodine 4 mg capsule,extended 4 mg PO DAILY 01/15/17 07/18/19 History release 24 hr (Detrol [place]) aspirin 81 mg chewable tablet 81 mg PO DAILY@0800 ##30 07/20/19 Unknown Rx Vitamin D3 5,000 iu PO DAILY 12/10/20 Unknown History atorvastatin 40 mg tablet 40 mg PO QHS 11/30/23 Unknown History coenzyme Q10 75 mg capsule (Ultra 75 mg PO DAILY 04/18/24 Unknown History CoQ10) donepezil 10 mg tablet 10 mg PO QAM #30 tabs 08/31/24 Unknown Rx donepezil 5 mg tablet 5 mg PO QAM #30 tabs 08/31/24 Unknown Rx Allergy/AdvReac Type Severity Reaction Status Date / Time bee venom protein (honey bee) Allergy Anaphylaxis Verified 08/31/24 14:40 venom-wasp Allergy Anaphylaxis Verified 08/31/24 14:40 Family History Other Cancer Surgical History H/O: hysterectomy Social History household members: spouse Smoking Status: Never smoker ROS ROS Narrative Review of systems was limited due to patient's expressive aphasia. Vital Signs Vital Signs Vital Signs: 09/10/24 21:02 09/10/24 21:02 09/10/24 21:08 Temperature 98.6 F Temperature Source Oral Pulse Rate 110 H 110 H 103 H Respiratory Rate 18 18 20 H Blood Pressure 162/88 H 162/88 H 176/75 H Blood Pressure Mean 112 112 108 Pulse Ox 98 98 97 Oxygen Delivery Method Room Air Room Air Room Air 09/10/24 21:25 09/10/24 21:38 09/10/24 21:41 Temperature Temperature Source Pulse Rate 102 H 101 H Respiratory Rate 18 18 Blood Pressure 160/124 H 160/124 H Blood Pressure Mean 136 136 Pulse Ox 98 97 97 Oxygen Delivery Method Room Air Room Air Room Air 09/10/24 22:41 09/10/24 23:00 09/11/24 00:00 Temperature Temperature Source Pulse Rate 96 96 112 H Respiratory Rate 16 16 18 Blood Pressure 142/63 H 142/63 H 137/66 H Blood Pressure Mean 89 89 89 Pulse Ox 97 98 96 Oxygen Delivery Method Room Air Room Air Room Air Weight Weight: 112 lb 6.972 oz Body Mass Index (BMI) 21.2 Physical Exam Const alert, oriented x3, no apparent distress and average body habitus General Appearance: cooperative HEENT normocephalic, head/scalp atraumatic, hearing grossly normal bilaterally and moist oral mucous membranes Eyes PERRL and EOMs intact bilaterally Neck no lymphadenopathy and supple Resp normal respiratory effort, no retractions, no use of accessory muscles and clear to auscultation bilaterally Cardio regular rate and regular rhythm GI normal to inspection, nondistended, normoactive bowel sounds, soft to palpation, non-tender and non-distended Extremity normal to inspection, full ROM and no clubbing, cyanosis or edema Skin Skin Narrative: Patient has no evidence of rash, wounds or jaundice. Neuro oriented x3, CN's II-XII intact bilaterally, moves all extremities and no focal motor deficits Sensorium / Orientation: awake, alert, oriented to person, oriented to place and oriented to time Speech: speech normal Psych affect normal Results Medical Records Data Attestation: I reviewed the patient's medical records Lab / Micro Data Attestation: I reviewed the patient's lab results. 09/10/24 20:50 09/10/24 20:50 Labs: Laboratory Results - last 24 hr 09/10/24 20:50: WBC 8.2, RBC 4.29, Hgb 12.6, Hct 38.7, MCV 90.2, MCH 29.4, MCHC 32.6, RDW Std Deviation 52.4 H, RDW Coeff of [place] 15.9 H, Plt Count 340, MPV 9.2, Immature Gran % (Auto) 0.400, Neut % (Auto) 61.1, Lymph % (Auto) 28.6, [place] % (Auto) 7.2, Eos % (Auto) 2.3, Baso % (Auto) 0.4, Absolute Neuts (auto) 5.0, Absolute Lymphs (auto) 2.34, Nucleated RBC % 0, PT 14.8, INR 1.2, APTT 38.0 H, Sodium 142, Potassium 3.3 L, Chloride 107, Carbon Dioxide 29.0, Anion Gap 7, BUN 11, Creatinine 0.88, Estim Creat Clear Calc 35.27, Est GFR (MDRD) Af Amer 79, Est GFR (MDRD) Non-Af 65, BUN/Creatinine Ratio 12.6, Glucose 128 H, Calcium 9.1, Troponin I High Sens < 3 L 09/10/24 21:50: Urine Color Straw, Urine Clarity Clear, Urine pH 8.0, Ur Specific [place] 1.010, Urine Protein Negative, Urine Glucose (UA) Normal, Urine Ketones Negative, Urine Occult Blood Negative, Urine Nitrite Negative, Urine Bilirubin Negative, Urine Urobilinogen Normal, Ur Leukocyte Esterase Negative, Urine RBC 0 SEEN, Urine WBC 0 SEEN, Ur Squamous Epith Cells 0 SEEN, Urine Bacteria 0 SEEN, Urine Mucus 0 SEEN Imaging Radiology Impression Brain CT 09/10/24 21:08 IMPRESSION: There are no acute findings. Chronic involutional changes of the brain. Electronically Signed: Daren Mccullough MD at 21:20 EDT , ADDENDUM: 09/10/24 2141 IMPRESSION: There are no acute findings. Chronic involutional changes of the brain. N.B. : The above Results were Read Back by Daren Mccullough MD to Patrick English MD, and understanding confirmed on 09/10/2024 21:34:49 (ET). Electronically Signed: Daren Mccullough MD at 21:20 EDT , Chest X-Ray 09/10/24 21:08 IMPRESSION: No evidence of active intrathoracic disease. Electronically Signed: Joanne Nation MD at 22:42 EDT , Head/Neck CTA 09/10/24 21:08 IMPRESSION: 1. Nonvisualized distal right vertebral artery may suggest slow flow stenosis or occlusion. 2. There is mild atherosclerotic plaque formation of the origin of the right internal carotid artery with less than 50% cross sectional diameter stenosis. ALL ABOVE CRITERIA BY NASCET. 3. There is mild atherosclerotic plaque formation of the origin of the left internal carotid artery with less than 50% cross sectional diameter stenosis. ALL ABOVE CRITERIA BY NASCET. 4. There is calcified plaque formation of the right cavernous carotid artery, with a mild stenosis (less than 50%). ALL ABOVE CRITERIA BY NASCET. 5. There is calcified plaque formation of the left cavernous carotid artery, with a mild stenosis (less than 50%). ALL ABOVE CRITERIA BY NASCET. Electronically Signed: Daren Mccullough MD at 21:36 EDT , ADDENDUM: 09/10/24 2145 IMPRESSION: 1. Nonvisualized distal right vertebral artery may suggest slow flow stenosis or occlusion. 2. There is mild atherosclerotic plaque formation of the origin of the right internal carotid artery with less than 50% cross sectional diameter stenosis. ALL ABOVE CRITERIA BY NASCET. 3. There is mild atherosclerotic plaque formation of the origin of the left internal carotid artery with less than 50% cross sectional diameter stenosis. ALL ABOVE CRITERIA BY NASCET. 4. There is calcified plaque formation of the right cavernous carotid artery, with a mild stenosis (less than 50%). ALL ABOVE CRITERIA BY NASCET. 5. There is calcified plaque formation of the left cavernous carotid artery, with a mild stenosis (less than 50%). ALL ABOVE CRITERIA BY NASCET. N.B. : The above Results were Read Back by Daren Mccullough MD to Patrick English MD, and understanding confirmed on 09/10/2024 21:38:24 (ET). Electronically Signed: Daren Mccullough MD at 21:36 EDT , Assessment & Plan Assessment/Plan (1) Expressive aphasia: (2) TIA (transient ischemic attack): (3) Right arm numbness: (4) Hypokalemia: (5) History of CVA (cerebrovascular accident): (6) Hyperlipemia: QUALIFIERS: Hyperlipidemia type: unspecified Qualified Code(s): E78.5 - Hyperlipidemia, unspecified PLAN: Plan 1. Slurred speech suspicious for possible TIA in the setting of known previous similar CVA; with TNK and subsequent head bleed apparently due to aneurysm - Admit to PCU under observation status. Check MRI of the brain to evaluate for evidence of CVA. Check echocardiogram to evaluate LVEF. Continue aspirin and statin as previous. Patient is not considered to be a good candidate for additional TNK due to her previous head bleed. 2. Hypokalemia with a potassium of 3.3 mmol/L present on admission complicating #1 - Give supplemental KCl and then recheck level in a.m. to ensure improvement. 3. Hyperlipidemia - Resume statin and check lipid profile this admission in light of #1. 4. Mild dementia; on donepezil - Continue this agent as previous. 5. Overactive bladder - Maintain tolterodine as before. 6. History of hysterectomy - Noted. 7. OA - Give Tylenol as needed. 8. DVT prophylaxis - SCDs only with history of aneurysm and head bleed. Total time: Approximately 70 minutes. Charges/Coding Visit Charges OBSV E&M: 32737 Observ/hosp same date L2
--- NOTE | 2024-09-11 01:27 | MRI_ITS ---
EXAM: MR HEAD WITHOUT INTRAVENOUS CONTRAST CLINICAL INDICATION: TIA versus CVA with expressive aphasia. TECHNIQUE: Multiplanar and multisequence MR images of the brain were obtained without intravenous contrast. COMPARISON: CT brain 09/10/2024. FINDINGS: BRAIN AND EXTRA-AXIAL SPACES: Increased T2 signal intensity within the cerebral white matter suggestive of chronic microvascular change. No intra- or extra-axial hemorrhage. No evidence of acute infarct. No intracranial mass or mass effect. Normal preservation of the pederson/white matter interface. Posterior fossa structures are unremarkable. Prominence of the cortical sulci and ventricles related to volume loss change. Basal cisterns are patent. SELLA: Normal. Normal sella turcica, pituitary gland, infundibular stalk, optic chiasm and hypothalamus. AUDITORY SYSTEM: Normal. The internal auditory canals are patent. BONES/JOINTS: Intact calvarium. SINUSES: Unremarkable as visualized. Clear. MASTOID AIR CELLS: Clear. ORBITS: Unremarkable as visualized. Both globes, extraocular muscles, optic nerves and retrobulbar fat appear unremarkable. VASCULATURE: Unremarkable as visualized. Normal flow voids in the major intracranial circulation. MRI/Brain without Contrast IMPRESSION: 1. No acute intracranial abnormality. 2. Senescent changes. Electronically Signed: Desean Gimenez MD at 15:55 EDT ,
--- NOTE | 2024-09-11 01:28 | ECHOD_ITS ---
Reason For Study: TIA/CVA Procedure This was a 2D Doppler, Color Flow transthoracic echocardiogram. Exam performed portable in ICU/CCU. Left Ventricle Normal LV size. The estimated ejection fraction is 70 %. Left ventricular systolic function is hyperdynamic. Normal diastology for age. No regional wall motion abnormalities noted. Right Ventricle Normal RV size. Normal systolic function. Atria The left and right atria are normal. Previous negative bubble study. Mitral Valve The mitral valve is structurally normal. No prolapse or stenosis seen. Trivial mitral valve insufficiency. Tricuspid Valve Normal tricuspid valve. Mild (1+) tricuspid valve insufficiency. Pulmonary artery systolic pressure is 30 mmHg. Aortic Valve Trisinus/trileaflet aortic valve. Pulmonic Valve Normal pulmonic valve. Trivial pulmonic valve insufficiency. Great Vessels Normal aortic root. Pericardium/Pleural No pericardial effusion. MMode/2D Measurements & Calculations LVIDd: 3.2 cm IVSd: 0.86 cm Ao root diam: 2.7 cm LVIDs: 1.6 cm LVPWd: 0.85 cm RVDd: 2.7 cm FS: 50.2 % LAV(MOD-bp): 16.3 ml LVAd ap4: 16.2 cm2 LVAd ap2: 16.1 cm2 LAV(MOD-bp) Indexed: 11.0 ml/m2 LVLd ap4: 6.6 cm LVLd ap2: 6.9 cm LAV(MOD-sp2): 12.5 ml EDV(MOD-sp4): 34.4 ml EDV(MOD-sp2): 32.1 ml LAV(MOD-sp4): 21.2 ml EDV(sp4-el): 34.1 ml EDV(sp2-el): 32.2 ml LVAs ap4: 7.2 cm2 LVAs ap2: 7.2 cm2 LVLs ap4: 5.5 cm LVLs ap2: 5.4 cm ESV(MOD-sp4): 8.4 ml ESV(MOD-sp2): 8.3 ml ESV(sp4-el): 8.0 ml ESV(sp2-el): 8.1 ml EF(MOD-sp4): 75.7 % EF(MOD-sp2): 74.1 % EF(sp4-el): 76.6 % SV(MOD-sp4): 26.0 ml SV(MOD-sp2): 23.8 ml SV(sp4-el): 26.2 ml LA dimension(2D): 2.7 cm LA A4 area: 10.1 cm2 RA A4 area: 8.2 cm2 TAPSE: 1.8 cm Time Measurements MV dec time: 0.21 sec Doppler Measurements & Calculations MV E max carrington: 89.2 cm/sec Lat Peak E' Carrington: 7.4 cm/sec Med Peak E' Carrington: 6.0 cm/sec MV A max carrington: 120.8 cm/sec E/E' lat: 12.1 E/E' med: 14.9 MV E/A: 0.74 MV dec slope: 422.4 cm/sec2 Ao V2 max: 124.8 cm/sec LV V1 max: 87.2 cm/sec Ao max P.2 mmHg LV V1 max P.0 mmHg PA V2 max: 102.6 cm/sec TR max carrington: 258.0 cm/sec TR max P.6 mmHg ECHO/Echo Complete Interpretation Summary The estimated ejection fraction is 70 %. Mild (1+) tricuspid valve insufficiency. Ordering Physician: Domenic Valdes Referring Physician: Domenic Valdes Performed By: Socorro To RDCS
[2024-09-11] MEDS: Ondansetron 4 MG/2 ML Vial IV (02:35)
--- NOTE | 2024-09-11 02:38 | ED.RN ---
Patient had two episodes of emesis and was incontinent of urine, complete bed change and MD notified.
--- NOTE | 2024-09-11 02:39 | ED.RN ---
The patient had two episodes of emesis and was incontinent of urine, complete bed change and MD notified.
[2024-09-11] MEDS: Potassium Phosphate 30 MM in 0.9% Normal Saline (250mL Bag) 250 ML 42 MM IV (03:31)
[2024-09-11] MEDS: 0.9% Saline Lock 10 ML Syringe IV (04:08)
[2024-09-11 04:37] LABS: Cholesterol 178 mg/dL (200); High Density Lipoprotein 100 mg/dL; Triglycerides 73 mg/dL; Very Low Density Lipoprotein 15 mg/dL (5-40)
[2024-09-11 07:05] LABS: T4 Free Direct 0.72 ng/dL (0.76-1.46)
[2024-09-11] MEDS: Tolterodine Tartrate 4 MG CAP.SA PO (09:08)
[2024-09-11] MEDS: Donepezil HCl 10 MG Tablet PO (09:08)
[2024-09-11] MEDS: Cholecalciferol (Vit D3) 125 MCG CAPSULE (5,000 UNITS) PO (09:08)
[2024-09-11] MEDS: Aspirin 81 MG TAB.CHEW PO (09:08)
--- NOTE | 2024-09-11 11:15 | CASEMGMT ---
Addendum entered and electronically signed by Maday Sampson RN 09/11/24 12:38: Dx: TIA vs CVA LACE=5/Risk Stratification=2 Original Note: ABHAY LOPEZ Discharge Planning Assessment: BLADE LOPEZ met [id number] with patient for initial transition planning/care coordination assessment. ABHAY LOPEZ introduced self and role at [facility], pt alert, voiced understanding, and was agreeable to participating in the assessment. Pt oriented x3 but did not know the day of the week and could not recall some answers to questions. Noted pt with hx of dementia. Speech was clear. Care providers, pharmacy, and demographics verified. Pt provided this ABHAY LOPEZ permission to contact her to discuss assessment also. Call placed to pt's spouse and information below contains his corroborated answers. Pt's spouse states pt's short term memory has been declining with the need to have things repeated frequently and difficulty remembering birthdays. PCP: Dr. Miller Specialists: neurologist d/t previous CVA and had recently started pt on donepezil Insurance: [facility] Prescription Benefit: yes Preferred Pharmacy: [facility]: spouse Butch, has daughter who lives in [place] and a son who lives in [place], Brother lives in [place] Living Arrangements: Pt lives in a single story condo without steps to enter. There are steps to the basement where an office is located but laundry and all other needs are on the first floor. Bathroom has walk-in shower with a seat. No grab bars or hand held shower. ADLs: Pt has been independent with ADLs and IADLs with the exception of medication management which pt's spouse manages. 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 Was recently raking leaves. Transportation: Pt drives but does have difficulty navigating. Spouse provides the navigation and pt is the primary class b truck driver. Pt's spouse is able to drive but is 89yo and uses a cane/walker when needed to assist him with ambulation. DME/HHC/SNF: Pt does not use any DME, has not been to a SNF previously nor had home healthcare. Plan: TBD PT/OT evaluations pending. Discussed with pt's spouse possible need for therapy at [place]. Pt's spouse states he can drive pt to outpt tx if needed but was also open to HHC or SNF/inpt rehab if recommended. Noted pt with right arm weakness and ST recommending additional therapy and supervised meals. John Sampson RN ACM
[2024-09-11] MEDS: Potassium Chloride Oral Tablet 20 MEQ 40 MEQ PO (11:44)
--- NOTE | 2024-09-11 14:45 | NURSING ---
Taken down for MRI.
--- NOTE | 2024-09-11 15:53 | CON.PCM.NE_ITS ---
Assessment and Plan: Stroke Assessment/Plan KANA PAREDES is a 84 F with a history of punctate temporal infarct who presents for evaluation of aphasia and R numbness. Now resolved. Her potassium was little low. Neurological examination shows NIH 0. Neuroimaging shows MRI with no actute infarct, Can DC NIHSS and neuro checks Continue ASA/Statin Treat electrolyte abnormalities and check infectious causes. HPI Consult Data Date of Consult: 09/11/24 HPI Narrative HPI Narrative: KANA PAREDES, is a 84 F who presents [facility] Medical History (Updated 09/11/24 @ 01:[address] Domenic Valdes DO) Hyperlipemia Brain aneurysm Home Medications ?Medication ?Instructions ?Recorded ?Last Taken ?Type tolterodine 4 mg capsule,extended 4 mg PO DAILY 01/15/17 07/18/19 History release 24 hr ([facility] [place]) aspirin 81 mg chewable tablet 81 mg PO DAILY@0800 ##30 07/20/19 Unknown Rx Vitamin D3 5,000 iu PO DAILY 12/10/20 Unknown History atorvastatin 40 mg tablet 40 mg PO QHS 11/30/23 Unknown History coenzyme Q10 75 mg capsule (Ultra 75 mg PO DAILY 04/18/24 Unknown History CoQ10) donepezil 10 mg tablet 10 mg PO QAM #30 tabs 08/31/24 Unknown Rx donepezil 5 mg tablet 5 mg PO QAM #30 tabs 08/31/24 Unknown Rx Allergy/AdvReac Type Severity Reaction Status Date / Time bee venom protein (honey bee) Allergy Anaphylaxis Verified 08/31/24 14:40 venom-wasp Allergy Anaphylaxis Verified 08/31/24 14:40 Family History Other Cancer Surgical History H/O: hysterectomy Social History household members: spouse Smoking Status: Never smoker Vital Signs Vital Signs Vital Signs: 09/10/24 21:02 09/10/24 21:02 09/10/24 21:08 Temperature 98.6 F Temperature Source Oral Pulse Rate 110 H 110 H 103 H Pulse Strength Respiratory Rate 18 18 20 H Respiratory Effort Respiratory Depth Respiratory Pattern Blood Pressure 162/88 H 162/88 H 176/75 H Blood Pressure Mean 112 112 108 Blood Pressure Source Pulse Ox 98 98 97 Oxygen Delivery Method Room Air Room Air Room Air 09/10/24 21:25 09/10/24 21:38 09/10/24 21:41 Temperature Temperature Source Pulse Rate 102 H 101 H Pulse Strength Respiratory Rate 18 18 Respiratory Effort Respiratory Depth Respiratory Pattern Blood Pressure 160/124 H 160/124 H Blood Pressure Mean 136 136 Blood Pressure Source Pulse Ox 98 97 97 Oxygen Delivery Method Room Air Room Air Room Air 09/10/24 22:41 09/10/24 23:00 09/11/24 00:00 Temperature Temperature Source Pulse Rate 96 96 112 H Pulse Strength Respiratory Rate 16 16 18 Respiratory Effort Respiratory Depth Respiratory Pattern Blood Pressure 142/63 H 142/63 H 137/66 H Blood Pressure Mean 89 89 89 Blood Pressure Source Pulse Ox 97 98 96 Oxygen Delivery Method Room Air Room Air Room Air 09/11/24 01:00 09/11/24 01:07 09/11/24 01:08 Temperature 99.0 F 99.0 F Temperature Source Oral Pulse Rate 105 H 107 H 105 H Pulse Strength Respiratory Rate 16 16 18 Respiratory Effort Respiratory Depth Respiratory Pattern Blood Pressure 148/73 H 148/73 H 148/73 H Blood Pressure Mean 98 98 98 Blood Pressure Source Pulse Ox 96 96 96 Oxygen Delivery Method Room Air Room Air 09/11/24 02:00 09/11/24 02:08 09/11/24 03:00 Temperature 98.7 F Temperature Source Oral Pulse Rate 98 96 Pulse Strength Respiratory Rate 16 16 Respiratory Effort Normal Non-Labored Respiratory Depth Normal Respiratory Pattern Normal Blood Pressure 139/68 H 139/68 H Blood Pressure Mean 91 91 Blood Pressure Source Pulse Ox 98 99 Oxygen Delivery Method Room Air Room Air 09/11/24 03:00 09/11/24 07:00 09/11/24 07:00 Temperature 98 F 98.4 F 98.4 F Temperature Source Temporal Temporal Temporal Pulse Rate 100 94 94 Pulse Strength Respiratory Rate 16 16 16 Respiratory Effort Respiratory Depth Respiratory Pattern Blood Pressure 148/65 H 145/72 H 145/71 H Blood Pressure Mean 92 96 95 Blood Pressure Source Monitor Monitor Monitor Pulse Ox 98 95 95 Oxygen Delivery Method Room Air Room Air Room Air 09/11/24 07:52 09/11/24 10:00 09/11/24 10:00 Temperature Temperature Source Pulse Rate Pulse Strength Normal (2+) Respiratory Rate Respiratory Effort Normal Non-Labored Respiratory Depth Normal Respiratory Pattern Normal Blood Pressure Blood Pressure Mean Blood Pressure Source Pulse Ox 96 Oxygen Delivery Method Room Air Room Air Weight Weight: 51.4 kg Body Mass Index (BMI) 21.2 EEG Results Procedure Details EEG Procedure Details: KANA PAREDES is a 84 year old F with a past medical history of , who presents for evaluation of Electroencephalogram on DATE at TIME NIHSS NIHSS Nursing Documentation NIHSS Nursing Documentation: NIHSS: Ischemic Stroke/TIA Start: 09/11/24 02:45 Text: For PCU Patients: NIH and Neuro Check every 4 Status: Active hours, PRN and with change in RN caregiver. Freq: Q4H Protocol: Activity Type Activity Date Activity User E-sign Co-sign Detail Recorded Client Recorded Date Recorded By Document 09/11/24 11:00 [facility] [id number] 09/11/24 12:17 [facility] 09/11/24 11:00 NIH Stroke Scale [NIHSS] A score of 0 is normal or asymptomatic . Total possible score is 42. Inpatient: RN or Physician to activate a stroke alert for onset of new stroke symptoms or with NIHSS increase >/= 3 points. Following change in neurological status, NIHSS will be performed per physician order or more frequently PRN. -1a. Level of Consciousness Alert; keenly responsive -1b. LOC Questions Answers BOTH questions correctly. -1c. LOC Commands Performs both tasks correctly . -2. Best Gaze Normal -3. Visual No visual loss -4. Facial Palsy Normal symmetrical movements -5a. Left Arm No drift; arm holds 90 (or 45 ) degrees for full 10 seconds -5b. Right Arm No drift; arm holds 90 (or 45 ) degrees for full 10 seconds -6a. Left Leg No drift; leg holds 30-degree position for full 5 seconds -6b. Right Leg No drift; leg holds 30-degree position for full 5 seconds -7. Limb Ataxia Absent -8. Sensory Normal; no sensory loss -9. Best Language No aphasia; normal -10. Dysarthria Normal -11. Extinction and Inattention No abnormality -Total 0 Query Text:A score of 0 is normal or asymptomatic. Total possible score is 42 . ED: Notify Physician for NIHSS increase by > / = 3 points. Inpatient: RN or Physician to activate a stroke alert for NIHSS increase of > / = 3 points. NIHSS 1a. Level of Consciousness: Alert; keenly responsive 1b. LOC Questions: Answers BOTH questions correctly. 2. Best Gaze: Normal 3. Visual: No visual loss 4. Facial Palsy: Normal symmetrical movements 5a. Left Arm: No drift; arm holds 90 (or 45) degrees for full 10 seconds 5b. Right Arm: No drift; arm holds 90 (or 45) degrees for full 10 seconds 6a. Left Leg: No drift; leg holds 30-degree position for full 5 seconds 6b. Right Leg: No drift; leg holds 30-degree position for full 5 seconds 7. Limb Ataxia: Absent 8. Sensory: Normal; no sensory loss 9. Best Language: No aphasia; normal 10. Dysarthria: Normal 11. Extinction and Inattention: No abnormality Total: 0 (sx resolved ) Lab / Micro Data 09/10/24 20:50 09/10/24 20:50 Labs: Laboratory Results - last 24 hr 09/10/24 20:30: Hemoglobin A1c 6.0 H, TSH 4.500 H 09/10/24 20:50: WBC 8.2, RBC 4.29, Hgb 12.6, Hct 38.7, MCV 90.2, MCH 29.4, MCHC 32.6, RDW Std Deviation 52.4 H, RDW Coeff of [place] 15.9 H, Plt Count 340, MPV 9.2, Immature Gran % (Auto) 0.400, Neut % (Auto) 61.1, Lymph % (Auto) 28.6, [place] % (Auto) 7.2, Eos % (Auto) 2.3, Baso % (Auto) 0.4, Absolute Neuts (auto) 5.0, Absolute Lymphs (auto) 2.34, Nucleated RBC % 0, PT 14.8, INR 1.2, APTT 38.0 H, Sodium 142, Potassium 3.3 L, Chloride 107, Carbon Dioxide 29.0, Anion Gap 7, BUN 11, Creatinine 0.88, Estim Creat Clear Calc 35.27, Est GFR (MDRD) Af Amer 79, Est GFR (MDRD) Non-Af 65, BUN/Creatinine Ratio 12.6, Glucose 128 H, Calcium 9.1, Troponin I High Sens < 3 L 09/10/24 21:50: Urine Color Straw, Urine Clarity Clear, Urine pH 8.0, Ur Specific [place] 1.010, Urine Protein Negative, Urine Glucose (UA) Normal, Urine Ketones Negative, Urine Occult Blood Negative, Urine Nitrite Negative, Urine Bilirubin Negative, Urine Urobilinogen Normal, Ur Leukocyte Esterase Negative, Urine RBC 0 SEEN, Urine WBC 0 SEEN, Ur Squamous Epith Cells 0 SEEN, Urine Bacteria 0 SEEN, Urine Mucus 0 SEEN 09/11/24 04:05: Triglycerides 73, Cholesterol 178, LDL Cholesterol 63, VLDL Cholesterol 15, HDL Cholesterol 100, Free T4 0.72 L Imaging Radiology Impression Brain CT 09/10/24 21:08 IMPRESSION: There are no acute findings. Chronic involutional changes of the brain. Electronically Signed: Daren Mccullough MD at 21:20 EDT , ADDENDUM: 09/10/242140 IMPRESSION: There are no acute findings. Chronic involutional changes of the brain. N.B. : The above Results were Read Back by Daren Mccullough MD to Patrick English MD, and understanding confirmed on 09/10/2024 21:34:49 (ET). Electronically Signed: Daren Mccullough MD at 21:20 EDT , Chest X-Ray 09/10/24 21:08 IMPRESSION: No evidence of active intrathoracic disease. Electronically Signed: Joanne Nation MD at 22:42 EDT , Head/Neck CTA 09/10/24 21:08 IMPRESSION: 1. Nonvisualized distal right vertebral artery may suggest slow flow stenosis or occlusion. 2. There is mild atherosclerotic plaque formation of the origin of the right internal carotid artery with less than 50% cross sectional diameter stenosis. ALL ABOVE CRITERIA BY NASCET. 3. There is mild atherosclerotic plaque formation of the origin of the left internal carotid artery with less than 50% cross sectional diameter stenosis. ALL ABOVE CRITERIA BY NASCET. 4. There is calcified plaque formation of the right cavernous carotid artery, with a mild stenosis (less than 50%). ALL ABOVE CRITERIA BY NASCET. 5. There is calcified plaque formation of the left cavernous carotid artery, with a mild stenosis (less than 50%). ALL ABOVE CRITERIA BY NASCET. Electronically Signed: Daren Mccullough MD at 21:36 EDT , ADDENDUM: 09/10/242144 IMPRESSION: 1. Nonvisualized distal right vertebral artery may suggest slow flow stenosis or occlusion. 2. There is mild atherosclerotic plaque formation of the origin of the right internal carotid artery with less than 50% cross sectional diameter stenosis. ALL ABOVE CRITERIA BY NASCET. 3. There is mild atherosclerotic plaque formation of the origin of the left internal carotid artery with less than 50% cross sectional diameter stenosis. ALL ABOVE CRITERIA BY NASCET. 4. There is calcified plaque formation of the right cavernous carotid artery, with a mild stenosis (less than 50%). ALL ABOVE CRITERIA BY NASCET. 5. There is calcified plaque formation of the left cavernous carotid artery, with a mild stenosis (less than 50%). ALL ABOVE CRITERIA BY NASCET. N.B. : The above Results were Read Back by Daren Mccullough MD to Patrick English MD, and understanding confirmed on 09/10/2024 21:38:24 (ET). Electronically Signed: Daren Mccullough MD at 21:36 EDT , Echocardiogram 09/11/24 01:28 Interpretation Summary The estimated ejection fraction is 70 %. Mild (1+) tricuspid valve insufficiency. Ordering Physician: Domenic Valdes Referring Physician: Domenic Valdes Performed By: [place] To RDCS Active Medications Active Medications Active Medications: Current Medications Generic Name Dose Route Start Last Admin Trade Name Freq PRN Reason Stop Dose Admin Acetaminophen 650 mg 09/11/24 02:45 Acetaminophen 325 Mg Tablet PO Q4H PRN PRN Pain 1-10 Or Fever>99.6 Aspirin 81 mg 09/11/24 08:00 09/11/24 09:08 Aspirin 81 Mg Tab.Chew PO 81 mg DAILY@0800 KULWANT Administration Atorvastatin Calcium 40 mg 09/11/24 22:00 Atorvastatin Calcium 40 Mg Tablet PO QHS KULWANT Cholecalciferol 125 mcg 09/11/24 10:00 09/11/24 09:08 Cholecalciferol (Vit D3) 125 Mcg Capsule (5,000 Units) PO 125 mcg DAILY KULWANT Administration Donepezil HCl 10 mg 09/11/24 10:00 09/11/24 09:08 Donepezil Hcl 10 Mg Tablet PO 10 mg QAM KULWANT Administration Labetalol HCl 20 mg 09/10/24 21:07 Labetalol (Prefilled) 20 Mg/4 Ml Vial IV 09/11/24 21:08 X1 PRN BLOOD PRESSURE Sodium Chloride 10 - 40 ml 09/11/24 03:08 09/11/24 04:08 0.9% Saline Lock 10 Ml Syringe IV 10 ml UD PRN Administration SALINE FLUSH Tolterodine Tartrate 4 mg 09/11/24 10:00 09/11/24 09:08 Tolterodine Tartrate 4 Mg Cap.Sa PO 4 mg DAILY KULWANT Administration
--- NOTE | 2024-09-11 16:00 | CASEMGMT ---
Met with patient and her to complete CADET form. CADET form explained to both who voiced understanding and signed form. Original form placed in pt?s chart and copy provided to patient. Mayela Butler, Discharge Planning Asst
--- NOTE | 2024-09-11 16:23 | CASEMGMT ---
Social Work PHQ9 not completed as pt MRI negative for stroke. Alma Turner, COMPUTER TRAINER
--- NOTE | 2024-09-11 16:28 | CASEMGMT ---
Dr. Gonzalez states that the pt just finished working with therapy and that she might be discharging the pt today. RN CM to pt room at this time to discuss DC planning. Pt at bedside.Pt and pt said that therapy went good and that they don't want or need HHC or OP Tx at this time and feel safe returning home with no additional needs. However, pt said that she is nauseous and wants to DC tomorrow instead of today. Dr Gonzalez notified.
--- NOTE | 2024-09-11 18:14 | PN.HOSP_ITS ---
Hospitalist Note Patient is an 84-year-old female who presented to the emergency department late last evening as a stroke alert due to slurred speech and right pronator drift. Per EMS 2 hours ago she started having slurred speech and problems with expressive aphasia. They noticed a right pronator drift on exam and a prehospital stroke team was called. Per discussion with her he reported that she actually complained of right arm numbness that started between 430 and 5:30 PM. She does have a history of brain aneurysm previously. Vital signs on presentation showed temperature of 98.6, heart rate 110, blood pressure 162/88, respiratory 18 oxygen saturations were 98% room air. Her CBC was unremarkable. Coags were unremarkable. Chemistry panel showed mild hypokalemia with potassium of 3.3 and a glucose of 128 but was otherwise unremarkable. Hemoglobin A1c was 6.0. Troponin was negative. Cholesterol panel shows a cholesterol of 178/LDL 6 8/HDL 100. TSH was 4.5 with a free T4 of 0.72 which are just slightly off normal. I would recommend outpatient follow-up TSH and free T4 be obtained in 6 weeks after discharge. She does not have a history of of hypothyroidism at baseline. UA was completely benign. CT of the brain on presentation showed no acute findings and only chronic involutional changes. Chest x-ray was unremarkable. CTA of the head and neck showed less than 50% carotid artery stenosis bilaterally with a nonvisualized distal right vertebral artery suggestive of slow flow versus occlusion versus stenosis. MRI showed senescent changes with no acute intracranial abnormalities. Teleneurology from [facility] evaluated the patient and got an NIH of 0. With negative neuroimaging they recommended discontinuing her NIH as a neurochecks, continuing her aspirin and statin, treat her electrolyte abnormalities and okay to discharge home with outpatient follow-up if she remains stable. As long as patient remains stable plan is for discharge tomorrow on 09/12/2024. Blood pressure was noted to be slightly elevated so we will go ahead and add amlodipine 5 mg daily.
[2024-09-11] MEDS: Atorvastatin Calcium 40 MG Tablet PO (20:50)
[2024-09-12 02:00] VITALS: PULSE 71
[2024-09-12 03:00] VITALS: BMI 21.2
[2024-09-12 03:26] VITALS: BMI 21.2
[2024-09-12 04:00] VITALS: BP 136/69; PULSE 87; RESP 15; TEMP 36.2; O2SAT 99
[2024-09-12 05:23] LABS: Hematocrit 38.2 % (37-47); Hemoglobin 12.4 g/dL (12.0-15.0); Mean Corp Hgb Conc 32.5 g/dL (32-36); Mean Corpuscular Hgb 29.6 pg (27.0-32.0); Mean Corpuscular Volume 91.2 fL (81-99); Mean Platelet Vol. 8.5 fl (6.2-12.0); Platelet Count 298 K/mm3 (150-450); RBC Distribution Width CV 16.1 % (11.6-14.6); RBC Distribution Width SD 53.3 fl (35.1-43.9); Red Blood Count 4.19 M/mm3 (4.2-5.4); White Blood Count 7.6 K/mm3 (4.4-11.0)
[2024-09-12 05:48] LABS: Anion Gap 2 (5-15); BUN 10 mg/dL (7-18); BUN/Creat Ratio 16.3 RATIO (10-20); Calcium,Total 9.4 mg/dL (8.5-10.1); Chloride 106 mmol/L (98-107); Creatinine, Serum 0.62 mg/dL (0.55-1.02); EST Glomerular Filtration Rate 98 mL/min (>60); Est Glom Filt Rate - Afr Amer 119 mL/min (>60); Glucose 107 mg/dL (74-106); Potassium 4.2 mmol/L (3.5-5.1); Sodium Level 137 mmol/L (136-145)
[2024-09-12 10:00] VITALS: BP 110/64; PULSE 84; RESP 16; TEMP 36.6; O2SAT 95
[2024-09-12] MEDS: Aspirin 81 MG TAB.CHEW PO (10:00)
[2024-09-12] MEDS: Tolterodine Tartrate 4 MG CAP.SA PO (10:00)
[2024-09-12] MEDS: Donepezil HCl 10 MG Tablet PO (10:00)
[2024-09-12] MEDS: Cholecalciferol (Vit D3) 125 MCG CAPSULE (5,000 UNITS) PO (10:55)
[2024-09-12] MEDS: amLODIPine 5 MG Tablet PO (10:55)
--- NOTE | 2024-09-12 11:46 | PCM.DC.SUM ---
Providers Date of Admission: 09/11/24 Date of Discharge: 09/12/24 Primary Care Physician: Dr. Allyson Miller MD Consultations 09/11/24 02:45 Consult: Tele-Neurology Routine Consulting Provider: [facility] Reason for Consult: Acute Ischemic Stroke/TIA EMERGENT Consult: No MD Notified: Yes Date Notified: 09/11/24 Time Notified: 01:25 Method of Notification: ED Physician Initiated Nursing Unit Staff Notify [facility] of Tele-Neurology Consult: Yes Reason For Visit: TIA VERSUS CVA WITH EXPRESSIVE APHASIA Diagnosis Discharge Diagnosis (1) Expressive aphasia: Status: Acute Code(s): R47.01 - Aphasia (2) TIA (transient ischemic attack): Status: Acute Code(s): G45.9 - Transient cerebral ischemic attack, unspecified (3) Right arm numbness: Status: Acute Code(s): R20.0 - Anesthesia of skin (4) Hypokalemia: Status: Acute Code(s): E87.6 - Hypokalemia (5) History of CVA (cerebrovascular accident): Status: Acute Code(s): Z86.73 - Personal history of transient ischemic attack (TIA), and cerebral infarction without residual deficits (6) Hyperlipemia: Status: Acute Code(s): E78.5 - Hyperlipidemia, unspecified Qualifiers: Hyperlipidemia type: unspecified Qualified Code(s): E78.5 - Hyperlipidemia, unspecified Medications at Discharge Home Medications tolterodine 4 mg capsule,extended release 24 hr (Detrol LA) 4 mg PO DAILY 01/15/17 aspirin 81 mg chewable tablet 81 mg PO DAILY@0800 ##30 07/20/19 Vitamin D3 5,000 iu PO DAILY 12/10/20 atorvastatin 40 mg tablet 40 mg PO QHS 11/30/23 coenzyme Q10 75 mg capsule (Ultra CoQ10) 75 mg PO DAILY 04/18/24 donepezil 10 mg tablet 10 mg PO QAM #30 tabs 08/31/24 donepezil 5 mg tablet 5 mg PO QAM #30 tabs 08/31/24 amlodipine 5 mg tablet 5 mg PO DAILY #30 tabs 09/12/24 Hospital Course Operations None Procedures 2-D Echocardiogram, EKG and - (CT brain/chest x-ray/CTA head and neck/MRI brain) Summary of Care Provided Minutes Spent on Discharge: 38 Hospital Course: Mrs. Pool is an 84-year-old white female who presented to the emergency department at [facility] late in the evening on 09/10/2020 for with a chief complaint of difficulty with speech and right arm numbness. Patient reported she was out to dinner with her and had a glass of wine and ate dinner. She stated typically they walk around afterwards however she was not feeling well and wanted to come home. She stated she typically drives but asked her to due to her not feeling well. She was able to describe exactly how she was not feeling well other than some mild lightheadedness and maybe some nausea. She stated when she got home she was very sleepy so she went to bed. She got up in the middle the night to use the bathroom and noted she was feeling worse so he decided to come the emergency department. Symptoms on complaint were speech difficulties and some numbness in her right arm which started about 530 or 6 that evening. Vital signs on presentation showed temperature of 98.6, heart rate 110, blood pressure 162/88, respiratory 18 oxygen saturations were 98% room air. Her CBC was unremarkable. Coags were unremarkable. Chemistry panel showed mild hypokalemia with potassium of 3.3 and a glucose of 128 but was otherwise unremarkable. Hemoglobin A1c was 6.0. Troponin was negative. Cholesterol panel shows a cholesterol of 178/LDL 68/HDL 100. TSH was 4.5 with a free T4 of 0.72 which are just slightly off normal. I would recommend outpatient follow-up TSH and free T4 be obtained in 6 weeks after discharge. She does not have a history of of hypothyroidism at baseline. UA was completely benign. CT of the brain on presentation showed no acute findings and only chronic involutional changes. Chest x-ray was unremarkable. CTA of the head and neck showed less than 50% carotid artery stenosis bilaterally with a nonvisualized distal right vertebral artery suggestive of slow flow versus occlusion versus stenosis. MRI showed senescent changes with no acute intracranial abnormalities. Teleneurology from [facility] evaluated the patient and got an NIH of 0. With negative neuroimaging they recommended discontinuing her NIH as a neurochecks, continuing her aspirin and statin, treat her electrolyte abnormalities and okay to discharge home with outpatient follow-up if she remains stable. She was monitored overnight and due to consistently elevated blood pressure we started her on amlodipine 5 mg daily and sent her with a prescription for 30-day supply at discharge. I have asked that she follow-up with her primary care physician within a week after discharge. Etiology of the above event is unclear. We thought maybe it was related to her alcohol use however she states she drinks a glass of wine here and there is never had problems previously. It is possible that she had a TIA which resolved and she will maintain her home aspirin use as well as her atorvastatin with improved blood pressure control. Patient was discharged home in stable condition on 09/12/2024. 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 Physical Exam Const alert, oriented x3, no apparent distress, average body habitus, no limitations, healthy appearing and well nourished Constitutional Narrative: Elderly, white female, sitting up in a chair at the bedside, watching television, appears comfortable, nontoxic, appears younger than stated age, does appear to be somewhat forgetful during interview General Appearance: cooperative, comfortable, well kempt and well developed Orientation / Consciousness: awake, oriented to person, oriented to place and oriented to time HEENT normocephalic, head/scalp atraumatic, hearing grossly normal bilaterally and moist oral mucous membranes HEENT Narrative: Mallampati 2, no thrush Eyes PERRL, EOMs intact bilaterally and conjunctivae normal Eyes Narrative: No scleral icterus Neck no lymphadenopathy and supple Neck Narrative: Trachea midline, no noted thyroid enlargement Resp normal respiratory effort, no retractions, no use of accessory muscles and clear to auscultation bilaterally Auscultation: Negative for rales, rhonchi or wheezes Cardio regular rate, regular rhythm, S1 normal heart sound, S2 normal heart sound, no murmurs, no rub, no gallops and no clicks GI normal to inspection, nondistended, normoactive bowel sounds, soft to palpation and non-tender Extremity no clubbing, cyanosis or edema Extremity Narrative: 2+ pedal pulses Skin no wounds, skin turgor normal and no jaundice Neuro oriented x3, CN's II-XII intact bilaterally, moves all extremities and no focal motor deficits Speech: speech normal Psych affect normal Psych Narrative: Very pleasant, interacts appropriately Weight / BMI Weight Weight: 51.4 kg Body Mass Index (BMI) 21.2 ABG / Lab / Microbiology Data 09/12/24 05:17 09/12/24 05:17 Laboratory: Laboratory Results - last 24 hr 09/12/24 05:17: WBC 7.6, RBC 4.19 L, Hgb 12.4, Hct 38.2, MCV 91.2, MCH 29.6, MCHC 32.5, RDW Std Deviation 53.3 H, RDW Coeff of [place] 16.1 H, Plt Count 298, MPV 8.5, Sodium 137, Potassium 4.2, Chloride 106, Carbon Dioxide 29.0, Anion Gap 2 L, BUN 10, Creatinine 0.62, Estim Creat Clear Calc 38.80, Est GFR (MDRD) Af Amer 119, Est GFR (MDRD) Non-Af 98, BUN/Creatinine Ratio 16.3, Glucose 107 H, Calcium 9.4 Radiography Diagnostic Testing: Radiology Impression Brain MRI 09/11/24 01:27 IMPRESSION: 1. No acute intracranial abnormality. 2. Senescent changes. Electronically Signed: Desean Gimenez MD at 15:55 EDT , D/C Instructions Discharge Diet: Low fat / Low cholesterol Discharge Activity: Return to Normal Activity Meaningful Use Info Meaningful Use Meaningful Use Diagnoses (Choose all that apply): None applicable Ischemic Stroke Statin Dosing Therapy Reference: STATIN DOSE THERAPY REFERENCE: * Patients > 75 years receive moderate or high dose statin therapy. * Patients 75 years or YOUNGER should receive HIGH intensity statin dose unless contraindicated. You will be required to document reason for non-treatment if statin daily dose does not meet guidelines. HIGH DOSE STATIN THERAPY DAILY Atorvastatin > than or = to 40 mg Rosuvastatin > than or = to 20 mg Amlodipine + Atorvastatin > than or = to 2.5/40 mg Ezetimibe + Simvastatin 10/80 mg Simvastatin 80mg Discharge Plan Admission Admit Date/Time: 09/11/24 01:24 Primary Reason for Your Visit: Slurred speech/right arm numbness Attending Provider: Tammy Gonzalez Primary Care Provider: Allyson Miller Consulting Providers: Ke Car; Praveena Salmeron; Sheryl Serrato; Estela Saha; Sarah Fierro; Isra Motta; Zahra Prajapati; Albert Cano; Kendall Sanchez; Rui Gallegos; Antoinette Malin; Dima Trivedi; Taylor Abraham; Charlie Green; Mark Kee; Esequiel Shepherd; Bernice Meyer; Bradfrod Becerra; Fransisca Gonzalez; April Chilel; Domenic Valdes Discharge Orders/Prescriptions Prescriptions: New amlodipine 5 mg Tablet 5 mg PO DAILY Qty: 30 0RF Continued Ultra CoQ10 75 mg capsule 75 mg PO DAILY donepezil 5 mg tablet 5 mg PO QAM Qty: 30 0RF donepezil 10 mg tablet 10 mg PO QAM Qty: 30 5RF Rx Instructions: Begin after completing one month of treatment of donepezil 5mg nightly tolterodine [Detrol LA] 4 MG capsule,extended release 24hr 4 mg PO DAILY aspirin 81 MG tablet,chewable 81 mg PO DAILY@0800 Qty: 30 0RF Vitamin D3 5,000 iu PO DAILY atorvastatin 40 mg tablet 40 mg PO QHS Referrals / Follow Up: Allyson Miller MD [Primary Care Provider] - Within 1 Week Disposition Disposition (needs filled in before D/C Order can be placed): Home, Self Care Charges/Coding Visit Charges Inpatient E&M: 39841 Disch Hosp >30min
--- NOTE | 2024-09-12 12:30 | CASEMGMT ---
Addendum entered by Sarah Rubi 09/12/24 14:18: Social Work Script for outpt PT/OT given to RN, she will pass it on to the pt. ZEYAD Odell Original Note: Social Work SW checked w/pt again regarding home health vs outpt PT. Pt is not homebound, but is interested in PT/OT. She is open to getting a script for PT/OT to do this as an outpt. She states she goes to [facility] so will follow up there. Script to be attained for pt and will be given to her. ZEYAD Odell
[2024-09-12 14:00] VITALS: BP 110/64; PULSE 84; RESP 16; TEMP 36.6; O2SAT 95
== END 2024-09-12 15:30 | disposition home or self-care (01) ==
LOC: ED 09-11 00:51 → ICU 09-11 02:31
PROVIDERS: Admitting Provider Internal Medicine; Emergency Provider Emergency Medicine; PCP Family Medicine; Referring Provider Internal Medicine; Visit Provider Internal Medicine
DX: R47.01 Aphasia (principal); F03.A0 Unspecified dementia, mild, without behavioral disturbance, psychotic disturbance, mood disturbance, and anxiety; R47.81 Slurred speech; Z79.82 Long term (current) use of aspirin; R20.0 Anesthesia of skin; R73.9 Hyperglycemia, unspecified; Z86.73 Personal history of transient ischemic attack (TIA), and cerebral infarction without residual deficits; E78.5 Hyperlipidemia, unspecified; R79.1 Abnormal coagulation profile; E87.6 Hypokalemia; Z79.899 Other long term (current) drug therapy; R47.1 Dysarthria and anarthria; M19.90 Unspecified osteoarthritis, unspecified site; N32.81 Overactive bladder; R94.6 Abnormal results of thyroid function studies; I65.23 Occlusion and stenosis of bilateral carotid arteries
CPT/HCPCS: 36415; 70450; 70496; 70498; 70551; 71045; 80048; 80061; 81001; 83036; 84439; 84443; 84484; 85025; 85027; 85610; 85730; 92610; 93005; 93306; 96365; 96366; 96375; 97162; 97166; 97802; 99221; 99285; J7050; Q9967; A4216; G0378; J2405

== ENCOUNTER 2025-01-31 09:05 | Emergency (ER) | payer MEDICARE, SELFPAY ==
[2025-01-31 09:06] VITALS: BP 128/63; PULSE 78; RESP 16; TEMP 36.4; O2SAT 98; BMI 22.3
[2025-01-31 09:08] VITALS: BP 128/63; PULSE 78; RESP 18; TEMP 36.4; O2SAT 98
--- NOTE | 2025-01-31 09:51 | CT_ITS ---
EXAM: CT Head Without Intravenous Contrast CLINICAL INDICATION: SYNCOPE TECHNIQUE: Axial computed tomography images of the head/brain without intravenous contrast. This CT exam was performed using one or more of the following dose reduction techniques: automated exposure control, adjustment of the mA and/or kV according to patient size, and/or use of iterative reconstruction technique. COMPARISON: No relevant prior studies available. FINDINGS: BRAIN AND EXTRA-AXIAL SPACES: The cerebral and cerebellar sulci are prominent consistent with brain atrophy. Areas of decreased attenuation in the deep cerebral white matter are consistent with small vessel ischemic/degenerative changes. No acute intracranial hemorrhage, midline shift or mass effect. If symptoms persist, further evaluation with MRI is recommended. BONES/JOINTS: Unremarkable. No acute fracture. SOFT TISSUES: Unremarkable. SINUSES: Unremarkable as visualized. No acute sinusitis. MASTOID AIR CELLS: Unremarkable as visualized. No mastoid effusion. CT/Brain/Head without Contrast IMPRESSION: 1. Generalized brain atrophy. 2. Small vessel ischemic/degenerative changes. 3. No acute intracranial hemorrhage, midline shift or mass effect. If symptoms persist, further evaluation with MRI is recommended. Reading Location: [facility]
--- NOTE | 2025-01-31 09:53 | EKG12_ITS ---
Test Reason : Blood Pressure : */* mmHG Vent. Rate : 72 BPM Atrial Rate : 72 BPM P-R Int : 180 ms QRS Dur : 68 ms QT Int : 398 ms P-R-T Axes : 74 3 74 degrees QTcB Int : 435 ms Sinus rhythm with Premature atrial complexes Septal infarct , age undetermined Abnormal ECG Confirmed by YELENA NICHOLAS, JUANA ([id number]), online editor MICHAEL HAM ([id number]) on 02/05/2025 11:11:53 AM Referred By: Confirmed By: JUANA KIRK MD
[2025-01-31 10:03] LABS: Absolute Lymphocyte Count 2.07 X10^3/uL (0.83-4.51); Absolute Neutrophil Count 5.1 X10^3/uL (2.0-7.7); Basophil# 0.05 X10^3/uL; Basophil% 0.6 % (0-1); Eosinophil# 0.51 X10^3/uL; Eosinophils% 5.8 % (0-5); Hematocrit 39.9 % (37-47); Hemoglobin 12.7 g/dL (12.0-15.0); Lymphocyte # 2.07 X10^3/ul (0.83-4.51); Lymphocyte % 23.7 % (19-41); Mean Corp Hgb Conc 31.8 g/dL (32-36); Mean Corpuscular Hgb 27.5 pg (27.0-32.0); Mean Corpuscular Volume 86.6 fL (81-99); Mean Platelet Vol. 9.1 fl (6.2-12.0); Monocyte# 0.96 X10^3/uL; NRBC Flagged by Analyzer 0 % (0-5); Neutrophil # 5.12 X10^3/uL (2.7-7.7); Neutrophil % 58.4 % (47-70); Platelet Count 342 K/mm3 (150-450); RBC Distribution Width CV 13.8 % (11.6-14.6); RBC Distribution Width SD 43.5 fl (35.1-43.9); Red Blood Count 4.61 M/mm3 (4.2-5.4); White Blood Count 8.8 K/mm3 (4.4-11.0)
--- NOTE | 2025-01-31 10:12 | EX.ED.DYSGE1 ---
HPI History of Present Illness Chief Complaint: Syncope Narrative Narrative: Chief complaint and HPI: Syncope. 84-year-old female with past medical history of CVA, HTN, HLD, dementia presents for evaluation of syncope. History taken by patient as well as daughter over the phone who witnessed the event. Daughter states that the patient has not felt well the last couple days. She has had cough, increased fatigue, and decreased appetite. She went to the PCP yesterday where she had viral testing that was negative. She was placed on a Z-Jerry. Daughter states yesterday the patient only ate a bowl of soup and mostly slept. This morning while walking to the bathroom she endorsed lightheadedness. She was sat down on the bench in which she had a syncopal episode. By EMS arrival patient was back to baseline. Patient does states she felt lightheaded while walking to the bathroom but this has since resolved. She currently denies any complaints other than a cough. She denies any fever, chills, shortness of breath, chest pain abdominal pain, nausea, vomiting, diarrhea, dysuria. Patient has a loop recorder in which she was not verified of any abnormalities during the event or recently. Review of systems: See HPI Medications: As listed on the chart Allergies: As listed on the chart PFSH: Per chart Vital signs: As listed on the chart. Reviewed. Physical exam: Gen: A&O x4, NAD Head: Normocephalic, atraumatic Eyes: No sclera icterus, conjunctiva clear, PERRL, EOMI ENT: Moist mucous membranes, No facial asymmetry Neck: Trachea midline, No JVD CV: RRR, no murmurs, no peripheral edema Resp: Lungs CTA BL, no w/r/c, + productive cough GI: Abd soft, non-distended, non-tender, no r/r/g Musc: Full ROM, no deformity, strength +5/5 in all extremities, no pronator drift, no ataxia Skin: Warm, dry, intact Neuro: Alert, oriented, grossly intact, sensation intact, no focal deficits Psych: Cooperative, appropriate mood and affect [facility] Medical History (Updated 01/31/25 @ 13:[address] Franc Corbin, DO) History of CVA (cerebrovascular accident) TIA (transient ischemic attack) Hyperlipemia Brain aneurysm Home Medications ?Medication ?Instructions ?Recorded ?Last Taken ?Type tolterodine 4 mg capsule,extended 4 mg PO DAILY 01/15/17 07/18/19 History release 24 hr (Detrol LA) aspirin 81 mg chewable tablet 81 mg PO DAILY@0800 ##30 07/20/19 Unknown Rx Vitamin D3 5,000 iu PO DAILY 12/10/20 Unknown History atorvastatin 40 mg tablet 40 mg PO QHS 11/30/23 Unknown History coenzyme Q10 75 mg capsule (Ultra 75 mg PO DAILY 04/18/24 Unknown History CoQ10) donepezil 5 mg tablet 5 mg PO QAM #30 tabs 08/31/24 Unknown Rx amlodipine 5 mg tablet 5 mg PO DAILY #30 tabs 09/12/24 Unknown Rx Allergy/AdvReac Type Severity Reaction Status Date / Time bee venom protein (honey bee) Allergy Anaphylaxis Verified 01/31/25 09:10 venom-wasp Allergy Anaphylaxis Verified 01/31/25 09:10 Family History Other Cancer Surgical History H/O: hysterectomy Social History household members: spouse Smoking Status: Never smoker EXAM Physical Exam Const Vital Signs: 01/31/25 09:06 01/31/25 09:08 01/31/25 09:09 Temperature 97.5 F L 97.5 F L Temperature Source Oral Oral Pulse Rate 78 78 Pulse Rate [Lying] Pulse Rate [Sitting (for 1 minute prior to obtaining)] Pulse Rate [Standing (for 1 minute prior to obtaining)] Respiratory Rate 16 18 Respiratory Effort Normal Non-Labored Respiratory Pattern Normal Blood Pressure 128/63 H 128/63 H Blood Pressure [Lying] Blood Pressure [Sitting (for 1 minute prior to obtaining)] Blood Pressure [Standing (for 1 minute prior to obtaining)] Blood Pressure Mean 84 84 Blood Pressure Mean [Lying] Blood Pressure Mean [Sitting (for 1 minute prior to obtaining)] Blood Pressure Mean [Standing (for 1 minute prior to obtaining)] Pulse Ox 98 98 Oxygen Delivery Method Room Air Room Air 01/31/25 10:16 01/31/25 10:45 01/31/25 11:15 Temperature Temperature Source Pulse Rate 68 Pulse Rate [Lying] 76 Pulse Rate [Sitting (for 1 minute prior to obtaining)] 74 Pulse Rate [Standing (for 1 minute prior to obtaining)] 88 Respiratory Rate 21 H Respiratory Effort Respiratory Pattern Blood Pressure 124/70 H Blood Pressure [Lying] 124/65 H Blood Pressure [Sitting (for 1 minute prior to obtaining)] 126/63 H Blood Pressure [Standing (for 1 minute prior to obtaining)] 114/71 Blood Pressure Mean 87 Blood Pressure Mean [Lying] 84 Blood Pressure Mean [Sitting (for 1 minute prior to obtaining)] 84 Blood Pressure Mean [Standing (for 1 minute prior to obtaining)] 85 Pulse Ox 98 Oxygen Delivery Method 01/31/25 13:00 Temperature Temperature Source Pulse Rate 83 Pulse Rate [Lying] Pulse Rate [Sitting (for 1 minute prior to obtaining)] Pulse Rate [Standing (for 1 minute prior to obtaining)] Respiratory Rate 18 Respiratory Effort Respiratory Pattern Blood Pressure 131/59 H Blood Pressure [Lying] Blood Pressure [Sitting (for 1 minute prior to obtaining)] Blood Pressure [Standing (for 1 minute prior to obtaining)] Blood Pressure Mean 83 Blood Pressure Mean [Lying] Blood Pressure Mean [Sitting (for 1 minute prior to obtaining)] Blood Pressure Mean [Standing (for 1 minute prior to obtaining)] Pulse Ox 98 Oxygen Delivery Method MDM MDM MDM Narrative Medical decision making narrative: 84-year-old female with past medical history of CVA, HTN, HLD, dementia presents for evaluation of syncope. Differential diagnosis includes but is not limited to viral illness, pneumonia, electrolyte abnormality, SARAH, UTI, arrhythmia, ACS, PE, intracranial abnormality, not a stroke. NS bolus ordered. Syncope workup ordered. Unable to interrogate patient's loop recorder. Patient has positive orthostatic vital signs. NS bolus ordered. Laboratory workup ordered including CT head. EKG reviewed see below. CBC without leukocytosis or anemia. CMP without SARAH or significant electrolyte abnormality. No transaminitis. D-dimer elevated at 0.92. Cannot rule out PE. CTA chest ordered. UA negative for UTI. Troponin unremarkable x 2. CT of the brain without acute intracranial abnormality. Patient has chronic changes. CTA chest negative for PE. Patient does have some subtle groundglass attenuation of the upper lobe could be infectious or inflammatory process. She has mild lung emphysema/COPD. Patient has been endorsing a cough. She is currently on a Z-Jerry. This point in time, I suspect the patient's syncopal episode was secondary to mild dehydration/orthostatic hypotension. Patient and friend in the room were updated all the results and confirmed understand the plan. Patient ambulated in the emergency department without any difficulty. Plan is to discharge home and follow-up with PCP. She was educated to drink plenty of fluids over the next several days and eat. Return precautions were explained. She confirmed understand the plan. ESelfKG: Interpreted by me/EM physician: EKG shows normal sinus rhythm with PACs. No acute ischemic changes. Heart rate 72 Impression: 1. Syncope 2. Orthostatic hypotension 3. Mild dehydration 4. Cough Lab Data Labs: Laboratory Results - last 24 hr 01/31/25 01/31/25 01/31/25 09:09 11:01 12:17 WBC 8.8 RBC 4.61 Hgb 12.7 Hct 39.9 MCV 86.6 MCH 27.5 MCHC 31.8 L RDW Std Deviation 43.5 RDW Coeff of [place] 13.8 Plt Count 342 MPV 9.1 Immature Gran % (Auto) 0.500 Neut % (Auto) 58.4 Lymph % (Auto) 23.7 [place]win % (Auto) 11.0 H Eos % (Auto) 5.8 H Baso % (Auto) 0.6 Absolute Neuts (auto) 5.1 Absolute Lymphs (auto) 2.07 Nucleated RBC % 0 D-Dimer Quant (PE/DVT) 0.92 H* Sodium 138 Potassium 3.6 Chloride 98 Carbon Dioxide 26.6 Anion Gap 13 BUN 11 Creatinine 0.68 L Estim Creat Clear Calc 38.80 L Est GFR (MDRD) Non-Af 85 BUN/Creatinine Ratio 15.7 Glucose 143 H Calcium 9.7 Total Bilirubin 0.39 AST 25 ALT 18 Alkaline Phosphatase 92 Troponin T High Sens 9 Troponin T Hi Sens 2 Hr 10 Total Protein 7.3 Albumin 4.4 Globulin 3.0 Albumin/Globulin Ratio 1.5 Urine Color Yellow Urine Clarity Sl. Cloudy Urine pH 7.0 Ur Specific [place] 1.005 Urine Protein 30 H Urine Glucose (UA) Normal Urine Ketones Negative Urine Occult Blood 10 H Urine Nitrite Negative Urine Bilirubin Negative Urine Urobilinogen Normal Ur Leukocyte Esterase 25 H Urine RBC 0-5 SEEN Urine WBC 0-5 SEEN Ur Squamous Epith Cells 0-5 SEEN Urine Bacteria 0 SEEN Urine Mucus 0 SEEN Radiography Diagnostic Testing: Clinical Impression(s) from Imaging Studies Brain CT 01/31/25 09:51 IMPRESSION: 1. Generalized brain atrophy. 2. Small vessel ischemic/degenerative changes. 3. No acute intracranial hemorrhage, midline shift or mass effect. If symptoms persist, further evaluation with MRI is recommended. Reading Location: [facility] Chest CTA 01/31/25 10:25 IMPRESSION: 1. No pulmonary embolism is identified. Some of the distal pulmonary arteries cannot be evaluated due to suboptimal opacification. 2. Subtle ground-glass attenuation of the upper lobe could be infectious or inflammatory response. 3. Mild lung emphysema/COPD. Reading Location: [facility] Discharge Plan Triage Chief Complaint: Syncope ED Provider: Franc Corbin Dx/Rx/DC Orders Clinical Impression: Syncope, Orthostatic hypotension Instructions: Causes of Syncope, ED Hypotension, Orthostatic Prescriptions: No Action Ultra CoQ10 75 mg capsule 75 mg PO DAILY donepezil 5 mg tablet 5 mg PO QAM Qty: 30 0RF tolterodine [Detrol LA] 4 MG capsule,extended release 24hr 4 mg PO DAILY aspirin 81 MG tablet,chewable 81 mg PO DAILY@0800 Qty: 30 0RF Vitamin D3 5,000 iu PO DAILY atorvastatin 40 mg tablet 40 mg PO QHS amlodipine 5 mg Tablet 5 mg PO DAILY Qty: 30 0RF Primary Care Provider: Allyson Miller Referrals: Allyson Miller MD [Primary Care Provider] - Activity Restrictions/Additional Instructions: Follow-up with your primary care physician. Make sure that you are drinking plenty of fluids and eating over the next several days. Do not make any quick movements or positional changes. Rest to let your blood pressure stabilize during position changes. Return back to the ED if symptoms change or worsen. Continue the antibiotics prescribed to you by your primary care doctor Print Language: Bangladeshi Disposition Disposition: Home, Self Care Discharge Date/Time: 01/31/25 13:48
[2025-01-31] MEDS: 0.9% Normal Saline (1000mL) 1,000 ML 1000 ML IV (10:13)
[2025-01-31 10:16] VITALS: BP 114/71; BP 124/65; BP 126/63; PULSE 74; PULSE 76; PULSE 88
[2025-01-31 10:20] LABS: D-Dimer Quantitative (DVT/PE) 0.92 FEU/ug/m (0.27-0.49)
--- NOTE | 2025-01-31 10:25 | CT_ITS ---
EXAM: CT Angiography Chest Without and With Intravenous Contrast CLINICAL INDICATION: SYNCOPE, PE TECHNIQUE: Axial computed tomographic angiography images of the chest without and with intravenous contrast. This CT exam was performed using one or more of the following dose reduction techniques: automated exposure control, adjustment of the mA and/or kV according to patient size, and/or use of iterative reconstruction technique. MIP reconstructed images were created and reviewed. COMPARISON: No relevant prior studies available. FINDINGS: LIMITATIONS: Suboptimal opacification of the pulmonary arteries. PULMONARY ARTERIES: No pulmonary embolism is identified. Some of the distal pulmonary arteries cannot be evaluated due to suboptimal opacification. AORTA: No acute findings. No thoracic aortic aneurysm. LUNGS AND PLEURAL SPACES: Subtle ground-glass attenuation of the upper lobe could be infectious or inflammatory response. Mild lung emphysema/COPD. No mass. No consolidation. No significant effusion. No pneumothorax. HEART: Unremarkable. No cardiomegaly. No significant pericardial effusion. No evidence of RV dysfunction. BONES/JOINTS: No acute fracture. No dislocation. SOFT TISSUES: Unremarkable. LYMPH NODES: Unremarkable. No enlarged lymph nodes. CT/CTA Chest W/WO Contrast IMPRESSION: 1. No pulmonary embolism is identified. Some of the distal pulmonary arteries cannot be evaluated due to suboptimal opacification. 2. Subtle ground-glass attenuation of the upper lobe could be infectious or in flammatory response. 3. Mild lung emphysema/COPD. Reading [facility]
[2025-01-31 10:33] LABS: ALB/GLOB Ratio 1.5 RATIO (0.9-2.4); AST(SGOT) 25 U/L (<=31); Alanine Aminotransfer ALT/SGPT 18 U/L (<=34); Albumin, Serum 4.4 g/dL (3.4-4.8); Alkaline Phosphatase 92 U/L (35-104); Anion Gap 13 (5-15); BUN 11 mg/dL (4-19); BUN/Creat Ratio 15.7 RATIO (10-20); Calcium,Total 9.7 mg/dL (7.6-11.0); Carbon Dioxide 26.6 mmol/L (21.0-32.0); Chloride 98 mmol/L (98-108); Creatinine, Serum 0.68 mg/dL (0.70-1.20); EST Glomerular Filtration Rate 85 (>60); Glucose 143 mg/dL (70-99); Potassium 3.6 mmol/L (3.3-5.1); Protein, Total 7.3 g/dL (5.9-8.4); Sodium Level 138 mmol/L (133-145); Total Bilirubin 0.39 mg/dL (0.00-1.30)
[2025-01-31 10:45] VITALS: BP 124/70
[2025-01-31 10:47] LABS: Troponin T High Sensitivity 9 ng/L (<=14)
[2025-01-31 11:07] LABS: Bacteria 0 SEEN /hpf (None Seen); Mucous, Urine 0 SEEN /hpf (<or=2+)
[2025-01-31 11:11] LABS: Color, Urine Yellow (Yellow); Glucose, Dipstick Normal (Normal); Ketone-Dipstick Negative (Negative); Leukocyte Esterase-Dipstick 25 /ul (Negative); Nitrite-Dipstick Negative (Negative); Occult Blood-Urine 10 /ul (Negative); Protein-Dipstick 30 mg/dl (Negative); Specific Gravity, Urine 1.005 (1.002-1.030); Urine Bilirubin Dipstick Negative (Negative); Urine Clarity Sl. Cloudy (Clear); Urine Urobilinogen Normal (Normal)
[2025-01-31 11:15] VITALS: PULSE 68; RESP 21; O2SAT 98
[2025-01-31 11:20] LABS: Squamous Epithelial Cells - UA 0-5 SEEN /hpf (5-10)
[2025-01-31 11:21] LABS: Red Blood Cells-Urine 0-5 SEEN /hpf (0-5); White Blood Cells 0-5 SEEN /hpf (0-5)
[2025-01-31 12:48] LABS: Troponin T High Sens 2 HR 10 ng/L (<=14)
[2025-01-31 13:00] VITALS: BP 131/59; PULSE 83; RESP 18; O2SAT 98
== END 2025-01-31 13:48 | disposition home or self-care (01) ==
PROVIDERS: Emergency Provider Surgery; PCP Family Medicine; Visit Provider Surgery
DX: I95.1 Orthostatic hypotension (principal); J43.9 Emphysema, unspecified; E86.0 Dehydration; R05.9 Cough, unspecified; I10 Essential (primary) hypertension; E78.5 Hyperlipidemia, unspecified; Z86.73 Personal history of transient ischemic attack (TIA), and cerebral infarction without residual deficits; F03.90 Unspecified dementia, unspecified severity, without behavioral disturbance, psychotic disturbance, mood disturbance, and anxiety; Z90.710 Acquired absence of both cervix and uterus; Z79.82 Long term (current) use of aspirin
CPT/HCPCS: 70450; 71275; 80053; 81001; 84484; 85025; 85379; 87631; 93005; 96360; 96361; 99285; Q9967; A4216